=== PATIENT | male | born 1935 | race Asian ===

== ENCOUNTER 2016-08-10 12:34 | Inpatient (IN) | payer OTHER, MEDICARE ==
[2016-08-10] MEDS ORDERED: MIDAZOLAM HCL 2 MG/2 ML SINGLE DOSE VIAL ONE (15:24)
--- NOTE | 2016-08-10 15:56 | HP ---
Admitting History and Physical - Admission History of Present Illness: 81 year old ESRD on HD who has had declining mental status and problems on dialysis. His has requested that he be changed to peritoneal dialysis. No prior abdominal surgery. 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, Peripheral Neuropathy Cardiovascular: Yes: CAD Renal/: Yes: Hemodialysis, Other (on diaylsis ) Psych: Yes: Psychosis - Past Surgical History Past Surgical History: Yes: AV Fistula/Graft, CABG - Smoking History Smoking history: Former smoker Have you smoked in the past 12 months: No Aproximately how many cigarettes per day: 0 If you are a former smoker, when did you quit?: 30YRS - Alcohol/Substance Use Hx Alcohol Use: No - Social History History of Recent Travel: No Home Medications - Allergies Allergies/Adverse Reactions: Allergies Allergy/AdvReac Type Severity Reaction Status Date / Time No Known Drug Allergies Allergy Verified 07/30/16 13:42 - Home Medications Home Medications: Ambulatory Orders Acetaminophen [Tylenol] 650 mg PO DAILY PRN 03/07/16 Aspirin [ASA -] 81 mg PO DAILY 03/07/16 Insulin Lispro [Humalog] 26 unit SQ DAILY 03/07/16 Megestrol Acetate 40 mg PO DAILY 03/07/16 Polyethylene Glycol 3350 [Miralax 119 gm Btl -] 17 gm PO DAILY 03/07/16 Sevelamer Carbonate [Renvela -] 2,400 mg PO TID 03/07/16 Sodium Polystyrene Sulfon/Sorb [Kionex 15 gm/60 ml Suspension] 30 gm PO ASDIR Vit B Cmplx 3/FA/Vit C/Biotin [[place]issa-Kimani Rx Tablet] 1 each PO DAILY 03/07/16 Ipratropium/Albuterol Sulfate [Combivent Respimat Inhal [place]] 4 gm IH QID PRN 07/20/16 Mirtazapine [Remeron -] 7.5 mg PO HS 07/20/16 Atorvastatin Ca [Lipitor] 40 mg PO HS tablet 07/22/16 Insulin (Levemir) [Levemir Vial] 15 units SQ DAILY@0800 ml 07/22/16 Isosorbide Mononitrate [Imdur -] 30 mg PO HS tab.sr.24h 07/22/16 Levetiracetam [Keppra -] 250 mg PO BID tablet 07/22/16 Losartan Potassium [Cozaar -] 50 mg PO DAILY tablet 07/22/16 Nebivolol [Bystolic -] 5 mg PO BID tab 07/22/16 Insulin Pump/Infus. Set/Meter [Accu-Chek Combo System] 1 each MC DAILY 08/09/16 Physical Examination Vital Signs: Vital Signs Temperature 97.8 F 08/10/16 14:41 Pulse Rate 67 08/10/16 14:41 Respiratory Rate 16 08/10/16 14:41 Blood Pressure 167/88 08/10/16 14:41 O2 Sat by Pulse Oximetry (%) 98 08/10/16 14:41 Constitutional: Yes: Thin Cardiovascular: Yes: Regular Rate and Rhythm Respiratory: Yes: Regular Gastrointestinal: Yes: Soft Labs: CBC, BMP 08/10/16 15:00 Problem List - Problems (1) ESRD (end stage renal disease) on dialysis Assessment/Plan: Plan open placement of PD catheter to avoid need for general anesthesia. Code(s): N18.6 - END STAGE RENAL DISEASE Z99.2 - DEPENDENCE ON RENAL DIALYSIS
[2016-08-10] MEDS ORDERED: ePHEDrine SULFATE 50 MG/1 ML AMPULE ONE (16:03)
[2016-08-10] MEDS ORDERED: LIDOCAINE HCL 1%, 10 MG/ML (20ML VIAL) IJ ONE (16:40)
[2016-08-10] MEDS ORDERED: ACETAMINOPHEN 325 MG TABLET (FP) PO PRN ×2 (16:45→16:55)
[2016-08-10] MEDS ORDERED: PATIENT'S OWN MEDICATION (NON-FORMULARY) (Ipratropium/Albuterol Sulfate [Combivent Respima IH PRN (16:45)
--- NOTE | 2016-08-10 16:45 | OP ---
Operative Note - Note: Operative Date: 08/10/16 Pre-Operative Diagnosis: ESRD Operation: Open placement of peritoneal dialysis catheter Implants: Straight Tenckhoff catheter Post-Operative Diagnosis: Same as Pre-op Surgeon: Hu Tapia Leadership Program Intern: Bell Belle Anesthesiologist/[employer] TE[employer]ER: Ciara Persaud Anesthesia: Local (I liter fluid ran in 3 minutes, 600 cc out), Fractional
[2016-08-10] MEDS ORDERED: OXYCODONE/APAP 5/325MG COMBO TABLET PO PRN (16:48)
[2016-08-10] MEDS ORDERED: oxyCODONE HCL 5 MG TABLET PO PRN (16:55)
[2016-08-10] MEDS ORDERED: SODIUM CHLORIDE 0.45% 1,000 ML IV SCH (17:00)
--- NOTE | 2016-08-10 19:51 | RAPID ---
Physical Examination Vital Signs: Vital Signs Temperature 98.0 F 08/10/16 17:32 Pulse Rate 60 08/10/16 17:32 Respiratory Rate 16 08/10/16 17:32 Blood Pressure 160/87 08/10/16 17:32 O2 Sat by Pulse Oximetry (%) 100 08/10/16 17:15 Findings/Remarks: The patient is a 81 yo M, with PMH of HTN, hypercholesterolemia, ESRD (on HD Mon ,Wed,Mon), renal insufficiency, CAD, IDDM, hypoxia ( on home O2) and seizure disorder, who became unresponsive 2.5 hr after beginning of his HD session. His BP at that time was 115 /67 and was 155 systolic 10 min earlier. Blood glucose was 152, pulses were 2+. He was placed in trendelenberg and regained consciousness withing 1 minute and became responsive. He has experienced LOC during almost every HD session over the past 2 mo even though minimal amount of fluid have been removed per session. As per , he also has been less responsive and more lethargic between sessions over the past 2 mo. Constitutional: Yes: Thin Eyes: Yes: Conjunctiva Clear, PERRL HENT: Yes: Atraumatic, Normocephalic Neck: Yes: Supple Cardiovascular: Yes: Regular Rate and Rhythm, S1, S2 Respiratory: Yes: CTA Bilaterally Gastrointestinal: Yes: Normal Bowel Sounds, Soft Renal/: Yes: Oliguria Peripheral Pulses: Left Radial: 2+, Right Radial: 2+, Left Femoral: 2+, Right Femoral: 2+ Neurological: Yes: Unresponsive Labs: CBC, BMP 08/10/16 15:00 Rapid Response - Rapid Response Assessment: Patient unresponsive, breathing, robust pulses, RRR, CTA b/l lungs. Glucose 152 , pressure 115/67, repeat pressure 153/84. Loss of consciousness associated with elecrolyte shift during HD in setting of worsening renal failure -numerous prior episodes over past 2 mo -placed in trendelenberg, HD stopped, reagained consciousness within 1 min back to baseline -CBC, CMP, Mag, phos -ekg: unchanged from prior -cxr -vitals q2h Outcome: patient regained consciousness within 1 in, afebrile and hemodynamically stable Recommendations/Interventions: -CBC, CMP, Mag, phos -ekg: unchanged from prior -cxr -vitals q2h Critical Care Total Critical Care Time (in minutes): 20
[2016-08-10 20:50] LABS: MCH 32.2 pg (25.7-33.7); MCHC 32.4 g/dl (32.0-35.9); MEAN CELL VOLUME 99.3 fl (80-96); MEAN PLT VOLUME 9.5 fl (7.5-11.1); PLATELET COUNT 148 K/MM3 (134-434); RDW 13.8 % (11.9-15.9); WHITE BLOOD COUNT 7.5 K/mm3 (4.0-10.0)
[2016-08-10 21:24] LABS: ALBUMIN 3.3 g/dl (3.4-5.0); MAGNESIUM 2.1 mg/dL (1.8-2.4); PHOSPHOROUS 4.7 mg/dL (2.5-4.9)
[2016-08-10 21:26] LABS: BILIRUBIN,TOTAL 0.4 mg/dL (0.2-1.0); CREATININE 6.3 mg/dL (0.7-1.3); TOT PROT 6.8 g/dl (6.4-8.2)
[2016-08-10] MEDS: SEVELAMER CARBONATE 800 MG TAB (FP) PO SCH (21:41)
[2016-08-10] MEDS: levETIRAcetam 250 MG TABLET (FP) PO SCH (21:42)
[2016-08-10] MEDS: LOSARTAN POTASSIUM 50 MG TABLET (FP) PO SCH (21:44)
[2016-08-10] MEDS ORDERED: MIRTAZAPINE 15 MG TABLET (FP) PO SCH (22:00)
[2016-08-10] MEDS ORDERED: ATORVASTATIN CA 40 MG TABLET (FP) PO SCH (22:00)
[2016-08-10] MEDS ORDERED: ISOSORBIDE MONONITRATE 30 MG TAB.SR.24H (FP) PO SCH (22:00)
[2016-08-10] MEDS: NEBIVOLOL 5 MG TABLET (FP) PO SCH (23:10)
[2016-08-11] MEDS: SEVELAMER CARBONATE 800 MG TAB (FP) PO SCH ×2 (06:36→13:20)
[2016-08-11] MEDS ORDERED: INSULIN (NOVOLOG) ASPART 100 UNITS/ML 10ML VIAL SQ SCH (07:00)
[2016-08-11] MEDS ORDERED: INSULIN DETEMIR 100 UNITS/ML MDV SQ SCH (08:00)
[2016-08-11] MEDS ORDERED: ASPIRIN 81 MG CHEWABLE TABLETS PO SCH (10:00)
[2016-08-11] MEDS ORDERED: LOSARTAN POTASSIUM 50 MG TABLET (FP) PO SCH (10:00)
[2016-08-11] MEDS ORDERED: PATIENT'S OWN MEDICATION (NON-FORMULARY) (Insulin Pump/Infus. Set/Meter [Accu-Chek Combo S MC SCH (10:00)
[2016-08-11] MEDS ORDERED: POLYETHYLENE GLYCOL 3350 119 GM BTL PO SCH (10:00)
[2016-08-11] MEDS ORDERED: MEGESTROL ACETATE 40 MG TABLET PO SCH (10:00)
[2016-08-11] MEDS ORDERED: PATIENT'S OWN MEDICATION (NON-FORMULARY) (Vit B Cmplx 3/Fa/Vit C/Biotin [Rena-Vite Rx Tabl PO SCH (10:00)
[2016-08-11] MEDS: levETIRAcetam 250 MG TABLET (FP) PO SCH (10:02)
[2016-08-11] MEDS: LOSARTAN POTASSIUM 50 MG TABLET (FP) PO SCH (10:02)
[2016-08-11] MEDS: NEBIVOLOL 5 MG TABLET (FP) PO SCH (10:02)
--- NOTE | 2016-08-11 10:18 | PN ---
Progress Note (short form) - Note Progress Note: Patient seen and examined. Baseline dementia, minimal communication. Discussed patient with nurse. Patient had rapid response called last night when he became unresponsive during HD. Patient lost consciousness for less than one minute. He has had several attacks like this during HD for several months. The patient is doing well now and is tolerating his diet. Last Vital Signs Temp Pulse Resp BP Pulse Ox 98.8 F 76 20 154/76 96 08/11/16 14:02 08/11/16 14:02 08/11/16 08:50 08/11/16 14:02 08/11/16 09:00 CBC, BMP 08/10/16 20:00 08/10/16 20:00 Exam: Gen: NAD, minimal communication, resting comfortably Abd: Soft, minimally tender with palp, dressings clean, dry, intact Problem List - Problems (1) ESRD (end stage renal disease) on dialysis Assessment/Plan: POD#1 s/p open placement of peritoneal dialysis catheter Patient to be discharged home today with and aid To continue HD until PD catheter to be used for PD To follow up with Dr. Tapia Code(s): N18.6 - END STAGE RENAL DISEASE Z99.2 - DEPENDENCE ON RENAL DIALYSIS
--- NOTE | 2016-08-11 11:23 | PN ---
Progress Note (short form) - Note Progress Note: Anesthesia POD#1 S/P PD catheter insertion under MAC VSS,no N/V,no pain issues. No complications to anesthesia seen Magdalena Lyman.
--- NOTE | 2016-08-11 13:29 | CONSULT ---
Consult Consult Specialty:: Nephrology Referred by:: Dr. Tapia - History of Present Illness Chief Complaint: Patient with ESRD admitted for PD catheter placement. Had been getting hemodynamically unstable on hemodialysis. 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 Cardio/Vascular: Yes: CAD Renal/: Yes: Renal Failure, Hemodialysis, Other (on diaylsis ) Psych: Yes: Psychosis - Past Surgical History Past Surgical History: Yes: AV Fistula/Graft, CABG - Alcohol/Substance Use Hx Alcohol Use: No - Smoking History Smoking history: Former smoker Have you smoked in the past 12 months: No Aproximately how many cigarettes per day: 0 If you are a former smoker, when did you quit?: 30YRS - Social History Usual Living Arrangement: With Spouse History of Recent Travel: No Home Medications - Allergies Allergies/Adverse Reactions: Allergies Allergy/AdvReac Type Severity Reaction Status Date / Time No Known Drug Allergies Allergy Verified 07/30/16 13:42 - Home Medications Home Medications: Ambulatory Orders Acetaminophen [Tylenol] 650 mg PO DAILY PRN 03/07/16 Aspirin [ASA -] 81 mg PO DAILY 03/07/16 Insulin Lispro [Humalog] 26 unit SQ DAILY 03/07/16 Megestrol Acetate 40 mg PO DAILY 03/07/16 Polyethylene Glycol 3350 [Miralax 119 gm Btl -] 17 gm PO DAILY 03/07/16 Sevelamer Carbonate [Renvela -] 2,400 mg PO TID 03/07/16 Sodium Polystyrene Sulfon/Sorb [Kionex 15 gm/60 ml Suspension] 30 gm PO ASDIR Vit B Cmplx 3/FA/Vit C/Biotin [Rissa-Kimani Rx Tablet] 1 each PO DAILY 03/07/16 Ipratropium/Albuterol Sulfate [Combivent Respimat Inhal [place]] 4 gm IH QID PRN 07/20/16 Mirtazapine [Remeron -] 7.5 mg PO HS 07/20/16 Atorvastatin Ca [Lipitor] 40 mg PO HS tablet 07/22/16 Insulin (Levemir) [Levemir Vial] 15 units SQ DAILY@0800 ml 07/22/16 Isosorbide Mononitrate [Imdur -] 30 mg PO HS tab.sr.24h 07/22/16 Levetiracetam [Keppra -] 250 mg PO BID tablet 07/22/16 Losartan Potassium [Cozaar -] 50 mg PO DAILY tablet 07/22/16 Nebivolol [Bystolic -] 5 mg PO BID tab 07/22/16 Insulin Pump/Infus. Set/Meter [Accu-Chek Combo System] 1 each MC DAILY 08/09/16 Oxycodone HCl/Acetaminophen [Percocet 5-325 mg Tablet] 1 tab PO Q4H PRN #20 tablet MDD 6 08/10/16 Physical Exam Vital Signs: Vital Signs Temperature 98.9 F 08/11/16 08:50 Pulse Rate 75 08/11/16 08:50 Respiratory Rate 20 08/11/16 08:50 Blood Pressure 145/66 08/11/16 08:50 O2 Sat by Pulse Oximetry (%) 96 08/11/16 09:00 Labs: CBC, BMP 08/10/16 20:00 08/10/16 20:00 Problem List - Problems (1) Acute diastolic congestive heart failure Code(s): I50.31 - ACUTE DIASTOLIC (CONGESTIVE) HEART FAILURE (2) Altered mental status Code(s): R41.82 - ALTERED MENTAL STATUS, UNSPECIFIED Qualifiers: Altered mental status type: transient alteration of awareness Qualified Code(s): R40.4 - Transient alteration of awareness (3) Anemia Code(s): D64.9 - ANEMIA, UNSPECIFIED Qualifiers: Other causes of anemia: chronic disease, kidney (4) Coronary artery disease Code(s): I25.10 - ATHSCL HEART DISEASE OF [place] CORONARY ARTERY W/O ANG PCTRS Qualifiers: Coronary Disease-Associated Artery/Lesion type: [place] artery [place] vs. transplanted heart: [place] heart Associated angina: without angina Qualified Code(s): I25.10 - Atherosclerotic heart disease of [place] coronary artery without angina pectoris (5) Dementia Code(s): F03.90 - UNSPECIFIED DEMENTIA WITHOUT BEHAVIORAL DISTURBANCE Qualifiers: Dementia type: Alzheimer's disease Alzheimer's disease onset: unspecified onset Dementia behavioral disturbance: without behavioral disturbance Qualified Code(s): G30.9 - Alzheimer's disease, unspecified; F02.80 - Dementia in other diseases classified elsewhere without behavioral disturbance (6) ESRD (end stage renal disease) on dialysis Code(s): N18.6 - END STAGE RENAL DISEASE Z99.2 - DEPENDENCE ON RENAL DIALYSIS (7) Hypertension Code(s): I10 - ESSENTIAL (PRIMARY) HYPERTENSION Qualifiers: Hypertension type: essential hypertension Qualified Code(s): I10 - Essential (primary) hypertension (8) Labile hypertension Code(s): I10 - ESSENTIAL (PRIMARY) HYPERTENSION Assessment/Plan Patient had placement of PD Catheter yesterday. Had HD after the same. Developed an episode of Acute Hypotension and unresponsiveness during HD. Very transient. Patient will return to [facility] for continued HD until the PD catheter can be used to start PD. Discussed in detail with the patient's . Thank you. Debbie Snyder MD
[2016-08-11 14:04] VITALS: BP 154/76; PULSE 76; TEMP 98.8
--- NOTE | 2016-08-14 11:27 | EKG ---
Test Reason : Blood Pressure : / mmHG Vent. Rate : 065 BPM Atrial Rate : 065 BPM P-R Int : 180 ms QRS Dur : 086 ms QT Int : 458 ms P-R-T Axes : 097 -77 103 degrees QTc Int : 476 ms POOR DATA QUALITY, INTERPRETATION MAY BE ADVERSELY AFFECTED NORMAL SINUS RHYTHM LEFT AXIS DEVIATION INFERIOR INFARCT , AGE UNDETERMINED ABNORMAL ECG WHEN COMPARED WITH ECG OF 30-JUL-2016 13:47, ST NOW DEPRESSED IN INFERIOR LEADS NON-SPECIFIC CHANGE IN ST SEGMENT IN ANTERIOR LEADS NONSPECIFIC T WAVE ABNORMALITY NOW EVIDENT IN INFERIOR LEADS T WAVE INVERSION LESS EVIDENT IN LATERAL LEADS Confirmed by LIBBY WELLS, AQUILES ([id number]) on 08/14/2016 11:26:59 AM Referred By: Hu Tapia Confirmed By:AQUILES SOUZA MD
--- NOTE | 2016-08-15 10:21 | OP ---
DATE OF OPERATION: 08/10/2016 SURGEON: Hu Mariscal MD PLANT BREEDER SCIENTIST: LANE Belle PROCEDURE: Open placement of peritoneal dialysis catheter. PREOPERATIVE DIAGNOSIS: Renal failure. POSTOPERATIVE DIAGNOSIS: Renal failure. ANESTHESIA: Fractional. ANESTHESIOLOGIST: EMILIO Quintero OPERATIVE PROCEDURE: Following routine patient identification, intravenous sedation was established. The abdomen was present with ChloraPrep. Then 1% Xylocaine was infiltrated in the skin to the left of the umbilicus. Subcutaneous tissues were divided with cautery down to the muscle fascia. The muscle fascia was incised transversely and the underlying muscle fibers . The posterior sheath was elevated and a pursestring suture of 2-0 Vicryl placed but not tied. The posterior sheath and peritoneum were then opened in the center of the pursestring, and a straight double cuff Tenckhoff catheter advanced into the pelvis. The cuff was positioned between the anterior and the posterior sheaths. The pursestring suture was tied secured. The muscle fascia was then closed over the cuff using interrupted sutures of 2-0 Vicryl. The end of the catheter was then attached to a curved metal tunneler, and after administering Xylocaine in the skin, the tunneler was passed in the subcutaneous plane to exit on the right abdominal wall inferior to the level of the umbilicus on the lateral aspect. The outer cuff was positioned in the subcutaneous tissues. Care was taken not to twist or kink the catheter. The lure lock end was applied and then the catheter was attached to a liter bag of saline, which was run to the peritoneal cavity in under 3 minutes. The catheter was then allowed to drain leaving several hundred mLs of fluid within the peritoneal cavity, and it was capped. The abdominal wound was closed with interrupted suture of 3-0 Vicryl in subcutaneous tissues and running subcuticular suture of 4-0 Biosyn on the skin. Dermabond glue was applied. The catheter exit site was dressed with a Biopatch and occlusive dressing, and a large ABD pad was placed over the catheter and secured with tape. The patient was then taken to the recovery room in stable condition. HU MARISCAL M.D. [id number]
== END 2016-08-11 16:30 | disposition home or self-care (01) | DRG 981 ==
LOC: JASUSAT 12:34 → JSAMEDAYSX 15:53 → J6S 19:25 → FM/S 19:26 → JSAMEDAYSX 19:38 → J6S 21:14
PROVIDERS: ADMIT Surgery; ATTEND Surgery
PROC: 5A1D00Z (ICD-10-PCS; 2016-08-10)
PROC: 0WHG03Z Insertion of Infusion Device into Peritoneal Cavity, Open Approach (ICD-10-PCS; principal; 2016-08-10 14:30)
DX: I13.2 Hypertensive heart and chronic kidney disease with heart failure and with stage 5 chronic kidney disease, or end stage renal disease (principal); N18.6 End stage renal disease; I50.31 Acute diastolic (congestive) heart failure; G40.802 Other epilepsy, not intractable, without status epilepticus; I25.10 Atherosclerotic heart disease of native coronary artery without angina pectoris; E78.00 Pure hypercholesterolemia, unspecified; E11.9 Type 2 diabetes mellitus without complications; F03.90 Unspecified dementia, unspecified severity, without behavioral disturbance, psychotic disturbance, mood disturbance, and anxiety; G62.89 Other specified polyneuropathies; Z79.4 Long term (current) use of insulin; Z99.2 Dependence on renal dialysis
CPT/HCPCS: 36415; 71010-TC; 80053; 82947; 83735; 84100; 84132; 84484; 85027; 93005; 93010; 94760; J8999

== ENCOUNTER 2016-09-07 09:50 | Inpatient (IN) | payer OTHER, MEDICARE ==
[2016-09-07 10:13] VITALS: BMI 20.3
--- NOTE | 2016-09-07 11:03 | PDOC ---
History of Present Illness - General History Source: Family Exam Limitations: No Limitations - History of Present Illness Initial Comments: 09/07/16 11:22 81y M hx of IDDM, HL, CHF, CAD s/p CABG, ESRD (on hemodylysis, but being transitioned to peritoneal dialysis because he is not tolerating hemodylasis) being sent for problem with his periotoneal cather. Per the the pts peritoneal cath was placed early august and they have started to use it recently, but has not been functioning correctly (not draining diasylate approrpriate) pt had an xray that showed it was not in the corret place and was told to come to the ED by dr. Debbie Horan (renal). Pts last hemodyalsis was for 2 hrs on Monday, and previous sat. Family notes the pt is more somnolent the past few days. No fevers, cough, vomiting. history limited from patient due to clinical condition. <Raghu Arboleda - Last Filed: 09/07/16 13:56> <Ximena Mascorro - Last Filed: 09/07/16 15:14> - General Chief Complaint: Dialysis Shunt Problem Stated Complaint: PCP SENT (DIALYSIS) Time Seen by Provider: 09/07/16 10:54 Past History - Past Medical History Anemia: Yes Asthma: No Cancer: No Cardiac Disorders: Yes (CORONARY BYPASS 2003) CVA: No COPD: No CHF: Yes Dementia: No Diabetes: Yes (IDDM,insulin pump) Dialysis: Yes GI Disorders: No Disorders: Yes ([facility]) HTN: Yes Hypercholesterolemia: Yes Liver Disease: No Seizures: No Thyroid Disease: No - Surgical History Abdominal Surgery: No Appendectomy: No Cardiac Surgery: Yes (CORONARY BYPASS 2003) Cholecystectomy: No Lung Surgery: No Neurologic Surgery: No Orthopedic Surgery: No - Immunization History Immunization Up to Date: No - Psycho/Social/Smoking Cessation Hx Anxiety: No Suicidal Ideation: No Smoking Status: Yes Smoking History: Never smoked Have you smoked in the past 12 months: No Number of Cigarettes Smoked Daily: 0 If you are a former smoker, when did you quit?: 30YRS Hx Alcohol Use: No Drug/Substance Use Hx: No Substance Use Type: None Hx Substance Use Treatment: No <Raghu Arboleda - Last Filed: 09/07/16 13:56> <Ximena Mascorro - Last Filed: 09/07/16 15:14> - Past Medical History Allergies/Adverse Reactions: Allergies Allergy/AdvReac Type Severity Reaction Status Date / Time No Known Drug Allergies Allergy Verified 09/07/16 10:13 Home Medications: Ambulatory Orders Acetaminophen [Tylenol] 650 mg PO DAILY PRN 03/07/16 Aspirin [ASA -] 81 mg PO DAILY 03/07/16 Insulin Lispro [Humalog] 26 unit SQ DAILY 03/07/16 Megestrol Acetate 40 mg PO DAILY 03/07/16 Polyethylene Glycol 3350 [Miralax 119 gm Btl -] 17 gm PO DAILY 03/07/16 Sevelamer Carbonate [Renvela -] 2,400 mg PO TID 03/07/16 Sodium Polystyrene Sulfon/Sorb [Kionex 15 gm/60 ml Suspension] 30 gm PO ASDIR Vit B Cmplx 3/FA/Vit C/Biotin [Rissa-Kimani Rx Tablet] 1 each PO DAILY 03/07/16 Ipratropium/Albuterol Sulfate [Combivent Respimat Inhal [place]] 4 gm IH QID PRN 07/20/16 Mirtazapine [Remeron -] 7.5 mg PO HS 07/20/16 Atorvastatin Ca [Lipitor] 40 mg PO HS tablet 07/22/16 Insulin (Levemir) [Levemir Vial] 15 units SQ DAILY@0800 ml 07/22/16 Isosorbide Mononitrate [Imdur -] 30 mg PO HS tab.sr.24h 07/22/16 Levetiracetam [Keppra -] 250 mg PO BID tablet 07/22/16 Losartan Potassium [Cozaar -] 50 mg PO DAILY tablet 07/22/16 Nebivolol [Bystolic -] 5 mg PO BID tab 07/22/16 Insulin Pump/Infus. Set/Meter [Accu-Chek Combo System] 1 each MC DAILY 08/09/16 Oxycodone HCl/Acetaminophen [Percocet 5-325 mg Tablet] 1 tab PO Q4H PRN #20 tablet MDD 6 08/10/16 Review of Systems - Review of Systems Able to Perform ROS?: No Comments:: 09/07/16 11:26 unable to obtain <Raghu Arboleda - Last Filed: 09/07/16 13:56> *Physical Exam - Vital Signs Last Vital Signs Temp Pulse Resp BP Pulse Ox 92 H 20 147/66 98 09/07/16 10:06 09/07/16 10:06 09/07/16 10:06 09/07/16 10:06 - Physical Exam Comments: 09/07/16 11:26 GENERAL: The patient is somnolent, but will open his eyes with stimulation. HEAD: Normocephalic, atraumatic. EYES: sclera anicteric, conjunctiva clear. ENT: dry mucous membranes. LUNGS: rales at the bases b/l HEART: Regular rate and rhythm, normal S1 and S2 without murmur, rub or gallop. ABDOMEN: cather in abdomen, no erythema, slightly distended abodmen, no rebound/ guarding EXTREMITIES: no edema. NEUROLOGICAL: No facial assymetry, Normal speech, PSYCH: Normal mood, normal affect. SKIN: Warm, Dry, normal turgor, <Raghu Arboleda - Last Filed: 09/07/16 13:56> - Vital Signs Last Vital Signs Temp Pulse Resp BP Pulse Ox 92 H 20 147/66 98 09/07/16 10:06 09/07/16 10:06 09/07/16 10:06 09/07/16 10:06 <Ximena Mascorro - Last Filed: 09/07/16 15:14> Heart Score/ECG Review - ECG Impressions Comment:: 09/07/16 11:29 Twelve-lead EKG was performed and reviewed by me. There is normal sinus rhythm with a rate of 64 left axis devaitaion q waves in inferior leads poor baseline <Raghu Arboleda - Last Filed: 09/07/16 13:56> ED Treatment Course - LABORATORY CBC & Chemistry Diagram: 09/07/16 11:33 09/07/16 11:33 <Raghu Arboleda - Last Filed: 09/07/16 13:56> - LABORATORY CBC & Chemistry Diagram: 09/07/16 11:33 09/07/16 11:33 - ADDITIONAL ORDERS Additional order review: Laboratory Results 02/01/17 02/01/17 02/01/17 11:33 11:33 11:33 INR 1.01 VBG pH 7.21 L* POC VBG pCO2 65.3 H* D POC VBG pO2 29.5 L D Sodium 143 Potassium 4.7 Chloride 101 Carbon Dioxide 26 Anion Gap 16 BUN 101 H Creatinine 9.9 H* Creat Clearance w eGFR 5.11 Random Glucose 284 H Calcium 8.1 L Phosphorus 7.6 H D Magnesium 2.7 H D Total Bilirubin 0.3 AST 17 ALT 23 Alkaline Phosphatase 99 Ammonia Total Protein 7.3 Albumin 3.2 L Blood Type Antibody Screen 09/07/16 09/07/16 11:33 11:20 INR VBG pH POC VBG pCO2 POC VBG pO2 Sodium Potassium Chloride Carbon Dioxide Anion Gap BUN Creatinine Creat Clearance w eGFR Random Glucose Calcium Phosphorus Magnesium Total Bilirubin AST ALT Alkaline Phosphatase Ammonia 21.30 Total Protein Albumin Blood Type A POSITIVE Antibody Screen Negative 09/07/16 11:33 RBC 3.07 L MCV 102.3 H MCHC 32.6 RDW 13.7 MPV 10.1 Neutrophils % 70.0 Lymphocytes % 14.3 Monocytes % 9.0 Eosinophils % 5.7 H Basophils % 1.0 - RADIOLOGY Radiograph Interpretation: 09/07/16 13:44 EXAM: CXR INTERPRETED BY: Dr. Vasquez REVIEWED BY: Dr. Arboleda IMPRESSION: Cardiomegaly. No evidence of vascular congestion, pulmonary infiltrates, pneumothorax. No large pleural effusion is seen. EXAM: Head CT INTERPRETED BY: Dr. Sparks REVIEWED BY: Dr. Arboleda IMPRESSION: No changes in acute intracranial pathology or significant change. <Ximena Mascorro - Last Filed: 09/07/16 15:14> Medical Decision Making - Medical Decision Making 09/07/16 11:27 81y M hxo fmultiple medical problems presents with problem wit hperitoneal shunt pt noted somnolent - suspect secondary to uremia +rales at bsaes - suspect due to fluid retention will obtain blood work to ck lytes pt placed on athletic monitor, ekg to screen for hyperkalemia will discuss with dr. hough (surgery), Dr. bennett (renal), Cipriano (PMD) 09/07/16 13:47 09/07/16 13:47 cxr negative labs reviewed BUN/cr elevated, however K wnl vbg c/w with respiratory acidosis - likely due to respiraotry depression secondary to uremia will d/w renal for possible diaylsis due to his mental status case d/w dr. Lees and dr. reese will admit to tele awaiting call back from renal Case discussed in detail with admitting physician including history, physical exam and ancillary studies. Admitting physician has assumed care for the patient, will follow all pending diagnostics and will complete the evaluation and treatment. CRITICAL CARE DOCUMENTATION: I spent ~35 minutes of Critical Care time, excluding separately billable procedures, involving high complexity decision making to assess, manipulate and support vital system function(s) to treat single or multiple vital organ system failure and/or to prevent further life threatening deterioration of the patient' s condition. <Raghu Arboleda - Last Filed: 09/07/16 13:56> - Medical Decision Making 09/07/16 14:13 First call placed to Dr. Cota at 13:[address] Lees at 13:44. First call placed to Dr. Steele at 13:36. Awaiting call back. Case discussed with Dr. Pederson at 14:10. <Ximena Mascorro - Last Filed: 09/07/16 15:14> *DC/Admit/Observation/Transfer - Discharge Dispostion Admit: Yes <Raghu Arboleda - Last Filed: 09/07/16 13:56> - Attestations Scribe Attestion: 09/07/16 13:46 Documentation prepared by Ximena Mascorro, acting as director biomedical engineering for Raghu Arboleda MD. <Ximena Mascorro - Last Filed: 09/07/16 15:14> Diagnosis at time of Disposition: ESRD (end stage renal disease), Uremia Peritoneal dialysis catheter dysfunction Qualifiers: Encounter type: initial encounter Qualified Code(s): T85.611A - Breakdown ( mechanical) of intraperitoneal dialysis catheter, initial encounter - Discharge Dispostion Condition at time of disposition: Guarded - Referrals
[2016-09-07 11:43] LABS: VENOUS PH 7.21 (7.31-7.41)
[2016-09-07 11:44] LABS: VENOUS BLOOD GAS HCO3 25.2 meq/L (22-29)
[2016-09-07 12:11] LABS: EOSINOPHIL 5.7 % (0-4.5); MCH 33.3 pg (25.7-33.7); MCHC 32.6 g/dl (32.0-35.9); MEAN CELL VOLUME 102.3 fl (80-96); MEAN PLT VOLUME 10.1 fl (7.5-11.1); PLATELET COUNT 125 K/MM3 (134-434); RDW 13.7 % (11.9-15.9); WHITE BLOOD COUNT 8.1 K/mm3 (4.0-10.0)
[2016-09-07 12:25] LABS: ALBUMIN 3.2 g/dl (3.4-5.0); CALCIUM 8.1 mg/dL (8.5-10.1); MAGNESIUM 2.7 mg/dL (1.8-2.4); PHOSPHOROUS 7.6 mg/dL (2.5-4.9)
[2016-09-07 12:26] LABS: INR 1.01 (0.82-1.09); PROTHROMBIN TIME (PATIENT) 11.1 SEC (9.98-11.88)
[2016-09-07 12:32] LABS: BILIRUBIN,TOTAL 0.3 mg/dL (0.2-1.0); TOT PROT 7.3 g/dl (6.4-8.2)
[2016-09-07 12:38] LABS: CREATININE 9.9 mg/dL (0.7-1.3)
[2016-09-07] MEDS ORDERED: ALBUTEROL SO4 2.5/IPRATROPIUM 0.5 INH SOL 3 ML VIAL.NEB. NEB ONE (13:48)
[2016-09-07] MEDS ORDERED: SUCCINYLCHOLINE CHLORIDE 200 MG/10 ML VIAL ONE ×2 (16:21→21:50)
[2016-09-07] MEDS ORDERED: ETOMIDATE 20 MG/10 ML AMPUL IVPUSH ONE ×2 (16:21→21:50)
[2016-09-07] MEDS ORDERED: ROCURONIUM BROMIDE 50 MG/5 ML VIAL ONE (16:21)
[2016-09-07] MEDS ORDERED: LIDOCAINE HCL/PF 2% SDV 5ML VIAL ONE (16:23)
[2016-09-07] MEDS ORDERED: DEXAMETHASONE SOD PHOSPHATE 4 MG/1 ML VIAL ONE (16:25)
[2016-09-07 16:29] LABS: ARTERIAL BLD GAS O2 SATURATION 92.2 % (90-98.9); ARTERIAL BLOOD GAS BASE EXCESS -3.2 meq/l (-2-2); ARTERIAL BLOOD GAS PO2 84.5 mmHg (70-100)
[2016-09-07 16:31] LABS: ARTERIAL BLOOD GAS pH 7.23 (7.35-7.45); LPM/O2% 1LPM; PT. ON O2? YES; TYPE OF O2 NASAL
[2016-09-07] MEDS ORDERED: ceFAZolin SODIUM 1 GM VIAL ONE (17:17)
[2016-09-07] MEDS ORDERED: ceFAZolin SODIUM 1 GM VIAL IVPB ONE ×2 (17:20)
[2016-09-07] MEDS ORDERED: ePHEDrine SULFATE 50 MG/1 ML AMPULE ONE (17:20)
[2016-09-07] MEDS ORDERED: BUPIVACAINE HCL/PF 0.5% (5MG/ML) 10 ML VIAL IJ ONE (17:35)
[2016-09-07] MEDS ORDERED: NEOSTIGMINE METHYLSULFATE 0.5 MG/ML - 10 ML MDV ONE (18:08)
--- NOTE | 2016-09-07 18:22 | CONSULT ---
Consult - History of Present Illness History of Present Illness: 81 year old male with ESRD who had PD catheter placed last month. the catheter is not draining well and xray showed the tip not in the pelvis. 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 Cardio/Vascular: Yes: CAD Renal/: Yes: Renal Failure, Hemodialysis, Other (on diaylsis ) Psych: Yes: Psychosis - Past Surgical History Past Surgical History: Yes: AV Fistula/Graft, CABG - Alcohol/Substance Use Hx Alcohol Use: No - Smoking History Smoking history: Never smoked Have you smoked in the past 12 months: No Aproximately how many cigarettes per day: 0 If you are a former smoker, when did you quit?: 30YRS - Social History Usual Living Arrangement: With Spouse History of Recent Travel: No Home Medications - Allergies Allergies/Adverse Reactions: Allergies Allergy/AdvReac Type Severity Reaction Status Date / Time No Known Drug Allergies Allergy Verified 09/07/16 10:13 - Home Medications Home Medications: Ambulatory Orders Acetaminophen [Tylenol] 650 mg PO DAILY PRN 03/07/16 Aspirin [ASA -] 81 mg PO DAILY 03/07/16 Insulin Lispro [Humalog] 0 unit SQ ASDIR PRN 03/07/16 Megestrol Acetate 40 mg PO DAILY 03/07/16 Polyethylene Glycol 3350 [Miralax 119 gm Btl -] 17 gm PO DAILY 03/07/16 Sevelamer Carbonate [Renvela -] 2,400 mg PO TID 03/07/16 Sodium Polystyrene Sulfon/Sorb [Kionex 15 gm/60 ml Suspension] 30 gm PO ASDIR Vit B Cmplx 3/FA/Vit C/Biotin [Rissa-Kimani Rx Tablet] 1 each PO DAILY 03/07/16 Ipratropium/Albuterol Sulfate [Combivent Respimat Inhal Captiva] 4 gm IH QID PRN 07/20/16 Mirtazapine [Remeron -] 7.5 mg PO HS 07/20/16 Atorvastatin Ca [Lipitor] 40 mg PO HS tablet 07/22/16 Isosorbide Mononitrate [Imdur -] 30 mg PO HS tab.sr.24h 07/22/16 Levetiracetam [Keppra -] 250 mg PO BID tablet 07/22/16 Losartan Potassium [Cozaar -] 50 mg PO DAILY tablet 07/22/16 Amlodipine Besylate 5 mg PO DAILY 09/07/16 Insulin Glargine,Hum.rec.anlog [Lantus (nf)] 26 units SQ ACBK 09/07/16 Nebivolol [Bystolic -] 5 mg PO BID 09/07/16 Physical Exam Vital Signs: Vital Signs Temperature Pulse Rate 61 09/07/16 14:26 Respiratory Rate 34 H 09/07/16 14:26 Blood Pressure 121/58 09/07/16 14:26 O2 Sat by Pulse Oximetry (%) 100 09/07/16 14:26 Constitutional: Yes: Other (Unresponsive) Gastrointestinal: Yes: Soft, Other (Catheter exit site clean and dry.) Problem List - Problems (1) ESRD (end stage renal disease) Assessment/Plan: Will replace catheter with laparoscopy to ensure proper placement. Code(s): N18.6 - END STAGE RENAL DISEASE (2) Peritoneal dialysis catheter dysfunction Code(s): T85.611A - BREAKDOWN OF INTRAPERITONEAL DIALYSIS CATHETER, INIT Qualifiers: Encounter type: initial encounter Qualified Code(s): T85.611A - Breakdown (mechanical) of intraperitoneal dialysis catheter, initial encounter
--- NOTE | 2016-09-07 18:25 | OP ---
Operative Note - Note: Operative Date: 09/07/16 Pre-Operative Diagnosis: Malfunction peritoneal dialysis catheter Operation: Laparoscopy, lysis of adhesion. Placement peritoneal dialysis catheter. Removal peritoneal dialysis catheter. Findings: PD catheter with tip in pelvis. Adhesion of small bowel loop at catheter site. Implants: [place] neck PD catheter Post-Operative Diagnosis: Same as Pre-op Surgeon: Hu Tapia Anesthesiologist/HOG HANDLER: Kris Rubio Anesthesia: General
[2016-09-07] MEDS ORDERED: PATIENT'S OWN MEDICATION (NON-FORMULARY) (Ipratropium/Albuterol Sulfate [Combivent Respima IH PRN (18:26)
[2016-09-07] MEDS ORDERED: HYDROmorphone HCL CARPU-JECT 1 MG/1 ML DISP.SYRIN IVPB PRN (18:28)
[2016-09-07] MEDS ORDERED: ONDANSETRON 4 MG/2 ML VIAL IVPUSH PRN (18:47)
--- NOTE | 2016-09-07 22:57 | EKG ---
Test Reason : Blood Pressure : / mmHG Vent. Rate : 064 BPM Atrial Rate : 064 BPM P-R Int : 186 ms QRS Dur : 108 ms QT Int : 388 ms P-R-T Axes : 039 -78 216 degrees QTc Int : 400 ms POOR DATA QUALITY, INTERPRETATION MAY BE ADVERSELY AFFECTED NORMAL SINUS RHYTHM WITH SINUS ARRHYTHMIA LEFT AXIS DEVIATION INCOMPLETE RIGHT BUNDLE BRANCH BLOCK MINIMAL VOLTAGE CRITERIA FOR LVH, MAY BE NORMAL VARIANT ANTEROSEPTAL INFARCT , AGE UNDETERMINED MARKED ST ABNORMALITY, POSSIBLE INFERIOR SUBENDOCARDIAL INJURY ABNORMAL ECG WHEN COMPARED WITH ECG OF 10-AUG-2016 19:57, INCOMPLETE RIGHT BUNDLE BRANCH BLOCK IS NOW PRESENT ANTEROSEPTAL INFARCT IS NOW PRESENT Confirmed by AQUILES SOUZA MD ([id number]) on 09/07/2016 10:57:39 PM Referred By: Confirmed By:AQUILES SOUZA MD
[2016-09-08] MEDS: ISOSORBIDE MONONITRATE 30 MG TAB.SR.24H (FP) PO SCH ×2 (00:55→22:41)
[2016-09-08] MEDS: NEBIVOLOL 5 MG TABLET (FP) PO SCH ×3 (00:55→22:41)
[2016-09-08] MEDS: ATORVASTATIN CA 40 MG TABLET (FP) PO SCH ×2 (00:56→22:41)
[2016-09-08] MEDS: MIRTAZAPINE 15 MG TABLET (FP) PO SCH ×2 (00:56→22:42)
[2016-09-08] MEDS: levETIRAcetam 250 MG TABLET (FP) PO SCH ×3 (00:56→22:41)
[2016-09-08] MEDS: INSULIN DETEMIR 100 UNITS/ML MDV SQ SCH ×2 (06:41→09:10)
[2016-09-08] MEDS: SEVELAMER CARBONATE 800 MG TAB (FP) PO SCH ×2 (08:27→12:05)
[2016-09-08] MEDS ORDERED: PT OWN MED DRAWER 7, Y5N ONE (09:04)
[2016-09-08] MEDS: ASPIRIN 81 MG CHEWABLE TABLETS PO SCH (09:09)
[2016-09-08] MEDS: LOSARTAN POTASSIUM 50 MG TABLET (FP) PO SCH ×2 (09:09→09:20)
[2016-09-08] MEDS: amLODIPine BESYLATE 5 MG TABLET (FP) PO SCH (09:09)
--- NOTE | 2016-09-08 10:27 | CONSULT ---
Consult - text type - Consultation Consultation Note: Renal Consult for ESRD on HD/PD This is a 81 year old Gentleman with PMhx of ESRD on HD -> PD (started 2 weeks ago), Hypertension, IDDM, Dementia (progressive over the past 2 years) who presented from home with malfunctioning PD catheter (tip was not in the pelvis) and admitted for replacement of the catheter. Pt s/p laproscopic PD catheter replacement yesterday with lysis of adhesions. Pt noted to be lethargic in the ED and abg showed CO2 retention. CT head negative. BUN > 100. Pt s/p dialysis yesterday however continues to be lethargic. at the bedside. Pt not able to provide history. PMhx: as per HPI Family hx: NC Social Hx: former smoker ROS: Limited because of clinical status Home Meds: Medication Instructions Recorded Acetaminophen [Tylenol] 650 mg PO DAILY PRN 03/07/16 Aspirin [ASA -] 81 mg PO DAILY 03/07/16 Insulin Lispro [Humalog] 0 unit SQ ASDIR PRN 03/07/16 Megestrol Acetate 40 mg PO DAILY 03/07/16 Polyethylene Glycol 3350 [Miralax 17 gm PO DAILY 03/07/16 119 gm Btl -] Sevelamer Carbonate [Renvela -] 2,400 mg PO TID 03/07/16 Sodium Polystyrene Sulfon/Sorb 30 gm PO ASDIR 03/07/16 [Kionex 15 gm/60 ml Suspension] Vit B Cmplx 3/FA/Vit C/Biotin 1 each PO DAILY 03/07/16 [Rissa-Kimani Rx Tablet] Ipratropium/Albuterol Sulfate 4 gm IH QID PRN 07/20/16 [Combivent Respimat Inhal Bruni] Mirtazapine [Remeron -] 7.5 mg PO HS 07/20/16 Atorvastatin Ca [Lipitor] 40 mg PO HS tablet 07/22/16 Isosorbide Mononitrate [Imdur -] 30 mg PO HS tab.sr.24h 07/22/16 Levetiracetam [Keppra -] 250 mg PO BID tablet 07/22/16 Losartan Potassium [Cozaar -] 50 mg PO DAILY tablet 07/22/16 Amlodipine Besylate 5 mg PO DAILY 09/07/16 Insulin Glargine,Hum.rec.anlog 26 units SQ ACBK 09/07/16 [Lantus (nf)] Nebivolol [Bystolic -] 5 mg PO BID 09/07/16 Vital Signs Temperature 97.0 F L 09/08/16 05:13 Pulse Rate 70 09/08/16 05:13 Respiratory Rate 20 09/08/16 05:13 Blood Pressure 110/52 09/08/16 05:13 O2 Sat by Pulse Oximetry (%) 100 09/07/16 20:00 Intake & Output 09/05/16 09/06/16 09/07/16 09/08/16 23:59 23:59 23:59 23:59 Intake Total 450 250 Balance 450 250 Weight 130 lb 1.164 oz Gen: lethargic on Venti mask HEENT: NC/AT, No JVD CVS: RRR, No M/R Lungs: CTA Abd: soft NT/ND. Abd dressing pad in place. Ext: No edema, clubbing or cyanosis Neuro: Very lethagic. not following commands CBC, BMP 09/07/16 11:33 09/07/16 11:33 Current Medications Acetaminophen (Tylenol -) 650 mg PO DAILY PRN PRN Reason: PAIN Albumin Human (Albumin Human 25% -) 12.5 gm IVPB Q30M [facility] Amlodipine Besylate (Norvasc -) 5 mg PO DAILY [facility] Last Admin: 09/08/16 09:09 Dose: 5 mg Aspirin (Asa -) 81 mg PO DAILY [facility] Last Admin: 09/08/16 09:09 Dose: 81 mg Atorvastatin Calcium (Lipitor -) 40 mg PO HS [facility] Last Admin: 09/08/16 00:56 Dose: Not Given Fentanyl (Sublimaze Injection -) 25 mcg IVPUSH [id number] PRN PRN Reason: PAIN Stop: 09/10/16 18:48 Insulin Aspart (Novolog Vial Sliding Scale -) 1 vial SQ ACHS [facility] PRN Reason: Protocol Insulin Detemir (Levemir Vial) 26 units SQ ACBK [facility] Last Admin: 09/08/16 09:10 Dose: 26 units Isosorbide Mononitrate (Imdur -) 30 mg PO HS [facility] Last Admin: 09/08/16 00:55 Dose: Not Given Levetiracetam (Keppra -) 250 mg PO BID [facility] Last Admin: 09/08/16 09:09 Dose: 250 mg Losartan Potassium (Cozaar -) 50 mg PO DAILY [facility] Last Admin: 09/08/16 09:20 Dose: Not Given Megestrol Acetate (Megace -) 40 mg PO DAILY [facility] Mirtazapine (Remeron -) 7.5 mg PO HS [facility] Last Admin: 09/08/16 00:56 Dose: Not Given Nebivolol (Bystolic -) 5 mg PO BID [facility] Last Admin: 09/08/16 09:09 Dose: 5 mg Non-Formulary Medication (Ipratropium/Albuterol Sulfate [Combivent Respimat Inhal Bruni]) 4 gm IH QID PRN PRN Reason: SHORT OF BREATH/WHEEZING Non-Formulary Medication (Sodium Polystyrene Sulfon/Sorb [Kionex 15 Gm/60 Ml Suspension]) 30 gm PO ASDIR [facility] Non-Formulary Medication (Vit B Cmplx 3/Fa/Vit C/Biotin [Rissa-Kimani Rx Tablet]) 1 each PO DAILY [facility] Polyethylene Glycol (Miralax (For Daily Use) -) 17 gm PO DAILY [facility] Sevelamer Carbonate (Renvela -) 2,400 mg PO TIDCM [facility] Last Admin: 09/08/16 08:27 Dose: 2,400 mg A/P 81 year old Gentleman with PMhx of ESRD on HD -> PD (started 2 weeks ago), Hypertension, IDDM, Dementia (progressive over the past 2 years) who presented from home with malfunctioning PD catheter (tip was not in the pelvis) and admitted for replacement of the catheter. #Lethargy secondary to CO2 retention vs uremic encephalopathy Check ABG today Will arrange for additional Hd today Check Labs prior to dialysis Check Blood cultures x 2 CT head yesterday no acute pathology Pt is DNR but not DNI #PD catheter dysfunction s/p PD catheter exchange yesterday by Sx Continue local wound care as per Sx #ESRD Will plan for additional dialysis today to management of possible uremic encephopathy #Hypertension BP at goal currently continue current meds #Anemia Hgb stable repeat cbc today Thank you Will follow Tayo Pederson DO
[2016-09-08] MEDS: INSULIN SLIDING SCALE (NOVOLOG) 1 VIAL SQ SCH ×3 (11:57→22:42)
[2016-09-08] MEDS: MEGESTROL ACETATE 40 MG TABLET PO SCH (12:02)
[2016-09-08] MEDS: POLYETHYLENE GLYCOL 3350 119 GM BTL PO SCH (12:02)
--- NOTE | 2016-09-08 12:31 | PN ---
Progress Note (short form) - Note Progress Note: Anesthesia Post op Pt seen and examined S:Awake, does not follow commands. No change . tremor O: Vital Signs Temperature 97.0 F L 09/08/16 05:13 Pulse Rate 70 09/08/16 05:13 Respiratory Rate 20 09/08/16 05:13 Blood Pressure 110/52 09/08/16 05:13 O2 Sat by Pulse Oximetry (%) 100 09/07/16 20:00 CBC, BMP 09/07/16 11:33 09/07/16 11:33 A/P: Current Active Problems ESRD (end stage renal disease) (Acute) Peritoneal dialysis catheter dysfunction (Acute) Uremia (Acute) s/p revision of peritoneal dialysis No apparent Anesthesia related complications noted. Continue current care Angel Almeida MD
--- NOTE | 2016-09-08 12:38 | OP ---
DATE OF OPERATION: 09/07/2016 PROCEDURE: 1. Diagnostic laparoscopy with lysis of adhesion. 2. Placement of peritoneal dialysis catheter with laparoscopic guidance. 3. Removal of peritoneal dialysis catheter. PREOPERATIVE DIAGNOSIS: Malfunctioning peritoneal dialysis catheter. POSTOPERATIVE DIAGNOSIS: 1. Malfunctioning peritoneal dialysis catheter. 2. Small bowel adhesion. ANESTHESIA: GENERAL: ANESTHESIOLOGIST: Kris Rubio MD OPERATIVE FINDINGS: The previously-placed peritoneal dialysis catheter was extending into the pelvis, and the tip was buried under loops of small intestine. There was an adhesion of a small bowel loop to the catheter entrance site on the anterior abdominal wall. There were no other abnormal adhesions seen. OPERATIVE PROCEDURE: Following routine patient identification, general anesthesia was induced. The abdomen was prepped with ChloraPrep. The PD catheter was attached to the CO2 insufflator, and carbon dioxide was instilled into the peritoneal cavity to 15 mmHg pressure. A 5-mm Visiport was placed through a small incision in the upper midline, and abdominal exploration carried out with a 5-mm angled laparoscope. A second 5-mm port was placed in the left lower quadrant under direct visualization. A clamp was used to elevate the peritoneal dialysis catheter out of the pelvis. Due to malfunction of the catheter, decision was made to replace it. The adhesion of small bowel loop to the anterior abdominal wall was divided with scissors, Endoshears and electrocautery to control any bleeding from the abdominal wall. The bowel was carefully inspected, and there was no evidence of injury. A small incision was made to the left of the umbilicus, and an 8-mm bladeless trocar was advanced until the tip was seen through the parietal peritoneum. The trocar was then advanced toward the pelvis and entered the peritoneal cavity inferior to the umbilicus. A [place]-neck double-cuff dialysis catheter was then advanced over a metal jatin into the pelvis where it was deployed and positioned on top of the bowel loops. The inner cuff was placed just deep to the abdominal wall fascia, and the trocar was removed. The other end of the catheter was attached to a curved tunneler, which was passed in the subcutaneous plane along the right abdominal wall, positioning the outer cuff in the subcutaneous tissues. The catheter was attached to tubing, and 1 liter of saline instilled into the peritoneal cavity in less than 4 minutes. The gas had been removed from the abdomen. The bag was dropped to the floor and the fluid drained out. Pneumoperitoneum was re-established, and repeat laparoscopy confirmed good placement of the catheter. The CO2 was evacuated. The old catheter was then removed by a small incision over the outer cuff. The cuff was freed, and then the inner cuff was freed. A purse-string suture of 2-0 Vicryl was placed in the peroneum, and the catheter removed and the suture placed to control any fluid leakage. The wounds were then irrigated and closed with interrupted suture of 3-0 Vicryl on the subcutaneous tissues and subcuticular sutures of 4-0 Biosyn on the skin. Dermabond glue was applied to all the wounds. The catheter tubing was clamped, and it was covered with an ABD pad, which was taped securely to the skin, and the patient was then extubated and taken in stable condition to the recovery room. ELA MARISCAL M.D. TABITHA/[id number]
[2016-09-08 13:58] LABS: MCH 32.9 pg (25.7-33.7); MCHC 32.2 g/dl (32.0-35.9); MEAN CELL VOLUME 101.9 fl (80-96); MEAN PLT VOLUME 9.9 fl (7.5-11.1); PLATELET COUNT 105 K/MM3 (134-434); RDW 13.4 % (11.9-15.9); WHITE BLOOD COUNT 6.1 K/mm3 (4.0-10.0)
[2016-09-08 14:28] LABS: BILIRUBIN,TOTAL 0.2 mg/dL (0.2-1.0); TOT PROT 6.3 g/dl (6.4-8.2)
[2016-09-08] MEDS: ALBUMIN HUMAN 25% 50 ML VIAL IVPB SCH (15:21)
[2016-09-08] MEDS ORDERED: INSULIN (NOVOLOG) ASPART 100 UNITS/ML 10ML VIAL ONE (17:18)
[2016-09-08] MEDS: SEVELAMER CARBONATE 2.4 GM POWDER PACKET PO SCH (17:22)
[2016-09-08 21:00] LABS: ARTERIAL BLD GAS O2 SATURATION 85.3 % (90-98.9); ARTERIAL BLOOD GAS BASE EXCESS 4.1 meq/l (-2-2); ARTERIAL BLOOD GAS HCO3 30.9 meq/L (22-26)
[2016-09-08 21:01] LABS: ARTERIAL BLOOD GAS pH 7.29 (7.35-7.45)
[2016-09-08 21:02] LABS: ARTERIAL BLOOD GAS PO2 55.5 mmHg (70-100)
[2016-09-08 21:03] LABS: LPM/O2% 2.5 LPM; PT. ON O2? YES; TYPE OF O2 NASAL
[2016-09-09] MEDS ORDERED: DEXTROSE 50%-WATER 50 ML DISP.SYRIN ONE (05:43)
[2016-09-09] MEDS: INSULIN SLIDING SCALE (NOVOLOG) 1 VIAL SQ SCH ×4 (06:24→21:52)
[2016-09-09] MEDS: INSULIN DETEMIR 100 UNITS/ML MDV SQ SCH (06:25)
[2016-09-09] MEDS ORDERED: PT OWN MED DRAWER 7, Y5N ONE ×2 (08:12→09:11)
--- NOTE | 2016-09-09 08:23 | PATH ---
Surgical Pathology Report Patient Name: KIERA ALMAZAN Med. Rec. #: [id number] /Age/Gender: 1935 (Age: 81) / M Account: [id number] Location: 4 W TELEMETRY U Taken: 09/07/2016 Received: 09/08/2016 Reported: 09/09/2016 Physicians: Hu Tapia M.D. Specimen(s) Received REMOVED PERITONEAL DIALYSIS CATHETER Clinical History ESRF Final Diagnosis INSURANCE JOB TITLES, PERITONEAL, REMOVAL: INSURANCE JOB TITLES CONSISTENT WITH PERITONEAL DIALYSIS CATHETER (GROSS ONLY). Electronically Signed Denton Ibanez M.D. Gross Description Received fresh, labeled "removed peritoneal dialysis catheter," are 2 portions of clear tubing measuring 16.5 and 27.0 cm in length. The shorter portion displays a 2.5 cm in greatest dimension redd metallic portion of hardware at one end. No soft tissue is present. No sections are submitted, gross only. 09/08/201609/08/2016
[2016-09-09] MEDS: SEVELAMER CARBONATE 2.4 GM POWDER PACKET PO SCH ×3 (08:32→17:43)
--- NOTE | 2016-09-09 09:27 | PN ---
Progress Note, Physician Chief Complaint: More awake History of Present Illness: End stage renal disease on PD and HD Admitted for peritonial catheter insertion - Current Medication List Current Medications: Active Medications Acetaminophen (Tylenol -) 650 mg PO DAILY PRN PRN Reason: PAIN Amlodipine Besylate (Norvasc -) 5 mg PO DAILY [facility] Last Admin: 09/08/16 09:09 Dose: 5 mg Aspirin (Asa -) 81 mg PO DAILY [facility] Last Admin: 09/08/16 09:09 Dose: 81 mg Atorvastatin Calcium (Lipitor -) 40 mg PO HS [facility] Last Admin: 09/08/16 22:41 Dose: 40 mg Fentanyl (Sublimaze Injection -) 25 mcg IVPUSH [id number] PRN PRN Reason: PAIN Stop: 09/10/16 18:48 Insulin Aspart (Novolog Vial Sliding Scale -) 1 vial SQ ACHS [facility] PRN Reason: Protocol Last Admin: 09/09/16 06:24 Dose: Not Given Insulin Detemir (Levemir Vial) 26 units SQ ACBK [facility] Last Admin: 09/09/16 06:25 Dose: Not Given Isosorbide Mononitrate (Imdur -) 30 mg PO [facility] Last Admin: 09/08/16 22:41 Dose: 30 mg Levetiracetam (Keppra -) 250 mg PO BID [facility] Last Admin: 09/08/16 22:41 Dose: 250 mg Losartan Potassium (Cozaar -) 50 mg PO DAILY [facility] Last Admin: 09/08/16 09:20 Dose: Not Given Megestrol Acetate (Megace -) 40 mg PO DAILY [facility] Last Admin: 09/08/16 12:02 Dose: 40 mg Mirtazapine (Remeron -) 7.5 mg PO HS [facility] Last Admin: 09/08/16 22:42 Dose: Not Given Nebivolol (Bystolic -) 5 mg PO BID [facility] Last Admin: 09/08/16 22:41 Dose: 5 mg Non-Formulary Medication (Ipratropium/Albuterol Sulfate [Combivent Respimat Inhal Daphne]) 4 gm IH QID PRN PRN Reason: SHORT OF BREATH/WHEEZING Non-Formulary Medication (Sodium Polystyrene Sulfon/Sorb [Kionex 15 Gm/60 Ml Suspension]) 30 gm PO ASDIR [facility] Non-Formulary Medication (Vit B Cmplx 3/Fa/Vit C/Biotin [Rissa-Kimani Rx Tablet]) 1 each PO DAILY [facility] Polyethylene Glycol (Miralax (For Daily Use) -) 17 gm PO DAILY [facility] Last Admin: 09/08/16 12:02 Dose: 17 gm Sevelamer Carbonate (Renvela Powder Packet -) 2.4 gm PO TIDCM [facility] Last Admin: 09/09/16 08:32 Dose: 2.4 gm - Objective Vital Signs: Vital Signs Temperature 98.8 F 09/09/16 02:00 Pulse Rate 59 L 09/09/16 06:00 Respiratory Rate 20 09/09/16 06:00 Blood Pressure 121/54 09/09/16 06:00 O2 Sat by Pulse Oximetry (%) 99 09/08/16 21:00 Constitutional: Yes: Cachectic Eyes: Yes: WNL HENT: Yes: WNL Neck: Yes: Supple Cardiovascular: Yes: Regular Rate and Rhythm Respiratory: Yes: On Nasal O2 Gastrointestinal: Yes: WNL ...Rectal Exam: Yes: Deferred Breast(s): Yes: WNL Musculoskeletal: Yes: Muscle Weakness Edema: No Neurological: Yes: Lethargy Labs: CBC, BMP 09/08/16 12:00 09/08/16 12:00 INR, PTT INR 1.01 (0.82-1.09) 09/07/16 11:33 Assessment/Plan ABG yesterday showed acidosis metabolic and respiratory Plan to do ABG on room air
--- NOTE | 2016-09-09 09:30 | DS ---
Physical Examination Vital Signs: Vital Signs Temperature 98.8 F 09/09/16 02:00 Pulse Rate 59 L 09/09/16 06:00 Respiratory Rate 20 09/09/16 06:00 Blood Pressure 121/54 09/09/16 06:00 O2 Sat by Pulse Oximetry (%) 99 09/08/16 21:00 Constitutional: Yes: Cachectic Eyes: Yes: WNL HENT: Yes: [place] Neck: Yes: WNL Respiratory: Yes: On Nasal O2 Gastrointestinal: Yes: WNL ...Rectal Exam: Yes: Deferred Renal/: Yes: Anuria Labs: CBC, BMP 09/08/16 12:00 09/08/16 12:00 Discharge Summary Reason For Visit: LETHARGY,ESRF ON DIALYSIS Current Active Problems ESRD (end stage renal disease) (Acute) Peritoneal dialysis catheter dysfunction (Acute) Uremia (Acute) Condition: Improved - Instructions Referrals: Jeremy Cota MD [Primary Care Provider] - Disposition: HOME - Home Medications Comprehensive Discharge Medication List: Ambulatory Orders Acetaminophen [Tylenol] 650 mg PO DAILY PRN 03/07/16 Aspirin [ASA -] 81 mg PO DAILY 03/07/16 Insulin Lispro [Humalog] 0 unit SQ ASDIR PRN 03/07/16 Megestrol Acetate 40 mg PO DAILY 03/07/16 Polyethylene Glycol 3350 [Miralax 119 gm Btl -] 17 gm PO DAILY 03/07/16 Sevelamer Carbonate [Renvela -] 2,400 mg PO TID 03/07/16 Sodium Polystyrene Sulfon/Sorb [Kionex 15 gm/60 ml Suspension] 30 gm PO ASDIR Vit B Cmplx 3/FA/Vit C/Biotin [Rissa-Kimani Rx Tablet] 1 each PO DAILY 03/07/16 Ipratropium/Albuterol Sulfate [Combivent Respimat Inhal Dewar] 4 gm IH QID PRN 07/20/16 Mirtazapine [Remeron -] 7.5 mg PO HS 07/20/16 Atorvastatin Ca [Lipitor] 40 mg PO HS tablet 07/22/16 Isosorbide Mononitrate [Imdur -] 30 mg PO HS tab.sr.24h 07/22/16 Levetiracetam [Keppra -] 250 mg PO BID tablet 07/22/16 Losartan Potassium [Cozaar -] 50 mg PO DAILY tablet 07/22/16 Amlodipine Besylate 5 mg PO DAILY 09/07/16 Insulin Glargine,Hum.rec.anlog [Lantus (nf)] 26 units SQ ACBK 09/07/16 Nebivolol [Bystolic -] 5 mg PO BID 09/07/16
[2016-09-09] MEDS: levETIRAcetam 250 MG TABLET (FP) PO SCH ×2 (10:08→21:45)
[2016-09-09] MEDS: MEGESTROL ACETATE 40 MG TABLET PO SCH (10:08)
[2016-09-09] MEDS: ASPIRIN 81 MG CHEWABLE TABLETS PO SCH (10:09)
[2016-09-09] MEDS: NEBIVOLOL 5 MG TABLET (FP) PO SCH ×2 (10:09→21:44)
[2016-09-09] MEDS: POLYETHYLENE GLYCOL 3350 119 GM BTL PO SCH (10:09)
[2016-09-09] MEDS: amLODIPine BESYLATE 5 MG TABLET (FP) PO SCH (10:09)
[2016-09-09] MEDS: LOSARTAN POTASSIUM 50 MG TABLET (FP) PO SCH (10:09)
[2016-09-09 10:53] LABS: ARTERIAL BLD GAS O2 SATURATION 81.9 % (90-98.9); ARTERIAL BLOOD GAS BASE EXCESS 1.3 meq/l (-2-2); ARTERIAL BLOOD GAS HCO3 27.8 meq/L (22-26); ARTERIAL BLOOD GAS PO2 51.1 mmHg (70-100)
[2016-09-09 10:55] LABS: ALLENS TEST POSITIVE; ART PUNCT SITE RIGHT BRACHIAL; LPM/O2% 21%; PT. ON O2? NO
[2016-09-09 10:57] LABS: TYPE OF O2 ROOM AIR
--- NOTE | 2016-09-09 11:27 | PN ---
Progress Note (short form) - Note Progress Note: Renal Follow up for ESRD on HD Pt seen and examined at the bedside more awake and alert today at the bedside appears to be at his baseline Mental status ABG continues to show Resp acidosis and mild CO2 retention Vital Signs Temperature 98.8 F 09/09/16 02:00 Pulse Rate 59 L 09/09/16 06:00 Respiratory Rate 20 09/09/16 06:00 Blood Pressure 121/54 09/09/16 06:00 O2 Sat by Pulse Oximetry (%) 99 09/08/16 21:00 Intake & Output 09/06/16 09/07/16 09/08/16 09/09/16 23:59 23:59 23:59 23:59 Intake Total 450 950 Output Total 0 Balance 450 950 0 Weight 130 lb 1.164 oz 141 lb Gen: awake and alert HEENT: NC/AT, No JVD CVS: RRR, No M/R Lungs: CTA Abd: soft NT/ND. Abd dressing pad in place. Ext: No edema, clubbing or cyanosis CBC, BMP 09/08/16 12:00 09/08/16 12:00 Current Medications Acetaminophen (Tylenol -) 650 mg PO DAILY PRN PRN Reason: PAIN Amlodipine Besylate (Norvasc -) 5 mg PO DAILY [facility] Last Admin: 09/09/16 10:09 Dose: 5 mg Aspirin (Asa -) 81 mg PO DAILY [facility] Last Admin: 09/09/16 10:09 Dose: 81 mg Atorvastatin Calcium (Lipitor -) 40 mg PO HS [facility] Last Admin: 09/08/16 22:41 Dose: 40 mg Fentanyl (Sublimaze Injection -) 25 mcg IVPUSH [id number] PRN PRN Reason: PAIN Stop: 09/10/16 18:48 Insulin Aspart (Novolog Vial Sliding Scale -) 1 vial SQ ACHS [facility] PRN Reason: Protocol Last Admin: 09/09/16 06:24 Dose: Not Given Insulin Detemir (Levemir Vial) 26 units SQ ACBK [facility] Last Admin: 09/09/16 06:25 Dose: Not Given Isosorbide Mononitrate (Imdur -) 30 mg PO HS [facility] Last Admin: 09/08/16 22:41 Dose: 30 mg Levetiracetam (Keppra -) 250 mg PO BID [facility] Last Admin: 09/09/16 10:08 Dose: 250 mg Losartan Potassium (Cozaar -) 50 mg PO DAILY [facility] Last Admin: 09/09/16 10:09 Dose: Not Given Megestrol Acetate (Megace -) 40 mg PO DAILY [facility] Last Admin: 09/09/16 10:08 Dose: 40 mg Mirtazapine (Remeron -) 7.5 mg PO HS [facility] Last Admin: 09/08/16 22:42 Dose: Not Given Multivit/Ca Carb/B Cmplx/FA/Prenat (Nephro-Kimani -) 1 tablet PO DAILY [facility] Nebivolol (Bystolic -) 5 mg PO BID [facility] Last Admin: 09/09/16 10:09 Dose: 5 mg Polyethylene Glycol (Miralax (For Daily Use) -) 17 gm PO DAILY [facility] Last Admin: 09/09/16 10:09 Dose: 17 gm Sevelamer Carbonate (Renvela Powder Packet -) 2.4 gm PO TIDCM [facility] Last Admin: 09/09/16 08:32 Dose: 2.4 gm A/P 81 year old Gentleman with PMhx of ESRD on HD -> PD (started 2 weeks ago), Hypertension, IDDM, Dementia (progressive over the past 2 years) who presented from home with malfunctioning PD catheter (tip was not in the pelvis) and admitted for replacement of the catheter. #Uremic Encephlopathy/AMS Mental status much improve ds/p 2 dialysis sessions ABG continues to show hypercarbia and hypoxia No acute indication for dialysis today #Hypercarbia/Hypxoia Pulmonary consult requested Pt uses O2 at home PRN Former smoker may need outpatient PFTs #PD catheter dysfunction s/p PD catheter exchange yesterday by Sx Continue local wound care as per Sx #ESRD no acute indication for dialysis today #Hypertension BP at goal currently continue current meds #Anemia Hgb stable repeat cbc today discharge planning pending Pulmonary Evaluation Tayo Pederson DO
--- NOTE | 2016-09-09 12:21 | PN ---
Progress Note (short form) - Note Progress Note: PULMONARY CONSULTATION DICTATED 09/09/16 IMP ACUTE HYPOXEMIC/HYPERCAPNEIC RESPIRATORY FAILURE ALTERED MENTAL STATUS ?TOXIC METABOLIC,MEDS ESRD ON HD CHF ASHD S/P CABG IDDM DEMENTIA PLAN BIPAP SUPPLEMENTAL O2 INHALED BRONCHODILATORS CHEST X-RAY HD PER RENAL MONITOR ABGS DR OBREGON Problem List - Problems (1) ESRD (end stage renal disease) Code(s): N18.6 - END STAGE RENAL DISEASE (2) Peritoneal dialysis catheter dysfunction Code(s): T85.611A - BREAKDOWN OF INTRAPERITONEAL DIALYSIS CATHETER, INIT Qualifiers: Encounter type: initial encounter Qualified Code(s): T85.611A - Breakdown (mechanical) of intraperitoneal dialysis catheter, initial encounter (3) Uremia Code(s): N19 - UNSPECIFIED KIDNEY FAILURE (4) Acute respiratory failure Code(s): J96.00 - ACUTE RESPIRATORY FAILURE, UNSP W HYPOXIA OR HYPERCAPNIA Qualifiers: Respiratory failure complication: hypoxia Qualified Code(s): J96.01 - Acute respiratory failure with hypoxia (5) Altered mental status Code(s): R41.82 - ALTERED MENTAL STATUS, UNSPECIFIED Qualifiers: Altered mental status type: transient alteration of awareness Qualified Code(s): R40.4 - Transient alteration of awareness (6) Anemia Code(s): D64.9 - ANEMIA, UNSPECIFIED Qualifiers: Other causes of anemia: chronic disease, kidney (7) Coronary artery disease Code(s): I25.10 - ATHSCL HEART DISEASE OF [place] CORONARY ARTERY W/O ANG PCTRS Qualifiers: Coronary Disease-Associated Artery/Lesion type: [place] artery [place] vs. 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
--- NOTE | 2016-09-09 13:08 | CONS ---
DATE OF CONSULTATION: 09/09/2016 REFERRING PHYSICIAN: Dr. Cr HISTORY: The patient is a 81-year-old Chinese male with past medical history of end-stage renal disease on hemodialysis currently started on peritoneal dialysis 2 weeks ago, hypertension, insulin-dependent diabetes mellitus, dementia apparently progressing over the past 2 years admitted to [facility] on September 07 secondary to malfunctioning TD catheter. The patient was admitted for replacement of catheter. The patient underwent laparoscopy and TD catheter placement the day prior to admission with lysis of adhesions. Apparently he was noticed to be lethargic in the emergency room at which time he was noted to have progressive hypercapnia with a PCO2 on venous blood gas of 65 and a pH of 7.2. He was admitted to telemetry for further monitoring. On admission, he was evaluated by Dr. Cr for renal consultation. He underwent dialysis x2. Apparently this morning he showed some slight improvement in his mental status, although arterial blood gas continues to show hypercapnia. Of note, in March 2016 he had a normal blood pH with a PCO2 of 45. The patient has a history of tobacco use. There is no apparent history of occupational exposure to chemical fumes. PAST MEDICAL HISTORY: Again, includes end-stage renal disease on dialysis, hypertension, insulin-dependent diabetes mellitus, dementia, ASHD status post CABG, congestive heart failure, hyperlipidemia. PAST SURGICAL HISTORY: Includes CABG in 2003. SOCIAL HISTORY: History of tobacco use. Apparently quit 30 years ago. No occupational exposures. CURRENT MEDICATIONS: Include Tylenol, Cozaar, Keppra, Remeron, Megace, Bystolic, MiraLAX, Norvasc, Lipitor, NovoLog, Levemir, Imdur, aspirin, Renvela, and Nephro-Kimani. REVIEW OF SYSTEMS: Unable to obtain. The patient is very lethargic. PHYSICAL EXAMINATION: General: The patient is a well-developed, well-nourished male lethargic. Vital Signs: He is currently afebrile. Heart rate 59, blood pressure 121/54, respiratory rate 20, O2 saturation 99% on 2 L. HEENT: Normocephalic and atraumatic. Neck: Supple. Heart: Regular S1, S2. Chest: Poor inspiratory effort. Crackles noted bilaterally. Abdomen: Soft. Bowel sounds positive. Extremities: No cyanosis or edema. LABORATORY DATA: Blood gas: PH 7.30, PCO2 of 59, PO2 of 51, bicarbonate 27, saturation 81. WBC 6.1, hemoglobin 8.6, hematocrit 26.5 with a platelet count of 105,000, INR 1.01. Chemistries: BUN 69, creatinine 7. Chest x-ray from admission reveals mild cardiomegaly but no infiltrates or effusions. IMPRESSION: 1. Altered mental status acute on chronic likely secondary to hypercapnia, possible toxic metabolic. 2. Acute on chronic hypoxemic respiratory failure, possibility mild congestive heart failure, possibly infectious. 3. End-stage renal disease on peritoneal dialysis. 4. Arteriosclerotic heart disease status post coronary artery bypass graft. 5. Insulin-dependent diabetes mellitus. PLAN: Start on BiPAP. Continue dialysis as per Renal. Monitor ABGs. Follow up chest x-ray. Monitor blood sugars. Follow closely with you. MANISHA OBREGON M.D. [id number]
[2016-09-09] MEDS: VITAMIN B COMP W-C 1 EA TABLET PO SCH (13:39)
[2016-09-09 15:29] LABS: ARTERIAL BLD GAS O2 SATURATION 97.7 % (90-98.9); ARTERIAL BLOOD GAS BASE EXCESS 1.8 meq/l (-2-2); ARTERIAL BLOOD GAS HCO3 27.6 meq/L (22-26); ARTERIAL BLOOD GAS pH 7.33 (7.35-7.45)
[2016-09-09 15:30] LABS: ALLENS TEST POSITIVE; ART PUNCT SITE RIGHT BRACHIAL; LPM/O2% 40%; MECH. VENT. BIPAP; PT. ON O2? YES; TYPE OF O2 BIPAP; VENT RATE 14; VT/PRESS 14
[2016-09-09] MEDS: ISOSORBIDE MONONITRATE 30 MG TAB.SR.24H (FP) PO SCH (21:44)
[2016-09-09] MEDS: ATORVASTATIN CA 40 MG TABLET (FP) PO SCH (21:45)
[2016-09-09] MEDS: MIRTAZAPINE 15 MG TABLET (FP) PO SCH (22:42)
[2016-09-10 00:06] LABS: HEP B SURFACE AB Reactive (.)
[2016-09-10] MEDS: INSULIN SLIDING SCALE (NOVOLOG) 1 VIAL SQ SCH ×4 (06:05→21:25)
[2016-09-10] MEDS: INSULIN DETEMIR 100 UNITS/ML MDV SQ SCH (06:05)
[2016-09-10 07:49] LABS: MCH 32.9 pg (25.7-33.7); MCHC 32.4 g/dl (32.0-35.9); MEAN CELL VOLUME 101.8 fl (80-96); MEAN PLT VOLUME 10.1 fl (7.5-11.1); PLATELET COUNT 89 K/MM3 (134-434); RDW 13.4 % (11.9-15.9); WHITE BLOOD COUNT 6.8 K/mm3 (4.0-10.0)
[2016-09-10] MEDS ORDERED: PT OWN MED DRAWER 7, Y5N ONE (08:48)
[2016-09-10] MEDS ORDERED: EPOETIN ALFA 20,000 UNIT/1 ML VIAL IVPUSH ONE (09:00)
[2016-09-10 09:08] LABS: CALCIUM 7.9 mg/dL (8.5-10.1); PHOSPHOROUS 6.9 mg/dL (2.5-4.9)
[2016-09-10 09:53] LABS: CREATININE 7.8 mg/dL (0.7-1.3)
[2016-09-10] MEDS: SEVELAMER CARBONATE 2.4 GM POWDER PACKET PO SCH ×3 (10:07→17:12)
[2016-09-10] MEDS ORDERED: MINERAL OIL ENEMA 133 ML ENEMA PR ONE (10:07)
--- NOTE | 2016-09-10 10:16 | PN ---
Progress Note (short form) - Note Progress Note: Renal Follow up for ESRD on HD Pt seen and examined during dialysis BP stable on dialysis, access with good flow UF goal is 2.2L hgb was 7.7, will transfuse 1 unit prbc report that he is lethargic again this am, not opening eyes ate breakfast Vital Signs Temperature 99.5 F 09/10/16 06:55 Pulse Rate 60 09/10/16 09:30 Respiratory Rate 18 09/10/16 09:30 Blood Pressure 148/61 09/10/16 09:30 O2 Sat by Pulse Oximetry (%) 99 09/10/16 03:10 Intake & Output 09/07/16 09/08/16 09/09/16 09/10/16 23:59 23:59 23:59 23:59 Intake Total 450 950 760 210 Output Total 0 Balance 450 950 760 210 Weight 130 lb 1.164 oz 141 lb 141 lb Gen: awake and alert HEENT: NC/AT, No JVD CVS: RRR, No M/R Lungs: CTA Abd: soft NT/ND. Abd dressing pad in place. Ext: No edema, clubbing or cyanosis CBC, BMP 09/10/16 07:00 09/10/16 07:00 Current Medications Acetaminophen (Tylenol -) 650 mg PO DAILY PRN PRN Reason: PAIN Albuterol/Ipratropium (Duoneb -) 1 amp NEB Q4H PRN PRN Reason: SHORTNESS OF BREATH Amlodipine Besylate (Norvasc -) 5 mg PO DAILY [facility] Last Admin: 09/09/16 10:09 Dose: 5 mg Aspirin (Asa -) 81 mg PO DAILY [facility] Last Admin: 09/09/16 10:09 Dose: 81 mg Atorvastatin Calcium (Lipitor -) 40 mg PO HS [facility] Last Admin: 09/09/16 21:45 Dose: 40 mg Fentanyl (Sublimaze Injection -) 25 mcg IVPUSH [id number] PRN PRN Reason: PAIN Stop: 09/10/16 18:48 Insulin Aspart (Novolog Vial Sliding Scale -) 1 vial SQ ACHS [facility] PRN Reason: Protocol Last Admin: 09/10/16 06:05 Dose: Not Given Insulin Detemir (Levemir Vial) 26 units SQ ACBK [facility] Last Admin: 09/10/16 06:05 Dose: Not Given Isosorbide Mononitrate (Imdur -) 30 mg PO HS [facility] Last Admin: 09/09/16 21:44 Dose: 30 mg Losartan Potassium (Cozaar -) 50 mg PO DAILY [facility] Last Admin: 09/09/16 10:09 Dose: Not Given Megestrol Acetate (Megace -) 40 mg PO DAILY [facility] Last Admin: 09/09/16 10:08 Dose: 40 mg Mineral Oil (Fleet Mineral Oil Rectal Enema -) 133 ml NM NOW ONE Stop: 09/10/16 10:08 Mirtazapine (Remeron -) 7.5 mg PO HS [facility] Last Admin: 09/09/16 22:42 Dose: Not Given Multivit/Ca Carb/B Cmplx/FA/Prenat (Nephro-Kimani -) 1 tablet PO DAILY [facility] Last Admin: 09/09/16 13:39 Dose: Not Given Nebivolol (Bystolic -) 5 mg PO BID [facility] Last Admin: 09/09/16 21:44 Dose: 5 mg Polyethylene Glycol (Miralax (For Daily Use) -) 17 gm PO DAILY [facility] Last Admin: 09/09/16 10:09 Dose: 17 gm Sevelamer Carbonate (Renvela Powder Packet -) 2.4 gm PO TIDCM [facility] Last Admin: 09/10/16 10:07 Dose: 2.4 gm A/P 81 year old Gentleman with PMhx of ESRD on HD -> PD (started 2 weeks ago), Hypertension, IDDM, Dementia (progressive over the past 2 years) who presented from home with malfunctioning PD catheter (tip was not in the pelvis) and admitted for replacement of the catheter. #Uremic Encephlopathy/AMS Mental status with improvement s/p dialysis 2 days in a row, todays appears more sedated Will hold Keppra and Remeron for now Consult Neurology Continue BIPAP #Hypercarbia/Hypxoia Continue BIPAP as per pulmonary Check ABG today #Acute Anemia ? Source of blood loss s/p Surgical procedure -> check Ct of the abd w/o contrast to r/o hematoma or fluid collection transfuse 1 unit prbc with dialysis Epogen 93532 units SC #PD catheter dysfunction s/p PD catheter exchanged #ESRD Tolerating dialysis well today Monitor MS after dialysis #Hypertension BP at goal currently continue current meds Tayo Pederson DO
[2016-09-10] MEDS: MEGESTROL ACETATE 40 MG TABLET PO SCH (11:36)
[2016-09-10] MEDS: amLODIPine BESYLATE 5 MG TABLET (FP) PO SCH (11:36)
[2016-09-10] MEDS: VITAMIN B COMP W-C 1 EA TABLET PO SCH (11:36)
[2016-09-10] MEDS: LOSARTAN POTASSIUM 50 MG TABLET (FP) PO SCH (11:36)
[2016-09-10] MEDS: ASPIRIN 81 MG CHEWABLE TABLETS PO SCH (11:36)
[2016-09-10] MEDS: NEBIVOLOL 5 MG TABLET (FP) PO SCH ×2 (11:37→21:16)
[2016-09-10] MEDS: levETIRAcetam 250 MG TABLET (FP) PO SCH (11:37)
[2016-09-10] MEDS: POLYETHYLENE GLYCOL 3350 119 GM BTL PO SCH (11:37)
--- NOTE | 2016-09-10 11:59 | PN ---
Progress Note (short form) - Note Progress Note: No acute events overnight. Lethargic. NAD. Intake & Output 09/07/16 09/08/16 09/09/16 09/10/16 23:59 23:59 23:59 23:59 Intake Total 450 950 760 210 Output Total 0 Balance 450 950 760 210 Weight 130 lb 1.164 oz 141 lb 141 lb Last Vital Signs Temp Pulse Resp BP Pulse Ox 99.5 F 60 18 148/61 99 09/10/16 06:55 09/10/16 09:30 09/10/16 09:30 09/10/16 09:30 09/10/16 03:10 Active Medications Acetaminophen (Tylenol -) 650 mg PO DAILY PRN PRN Reason: PAIN Albuterol/Ipratropium (Duoneb -) 1 amp NEB Q4H PRN PRN Reason: SHORTNESS OF BREATH Amlodipine Besylate (Norvasc -) 5 mg PO DAILY [facility] Last Admin: 09/10/16 11:36 Dose: 5 mg Aspirin (Asa -) 81 mg PO DAILY [facility] Last Admin: 09/10/16 11:36 Dose: 81 mg Atorvastatin Calcium (Lipitor -) 40 mg PO HS [facility] Last Admin: 09/09/16 21:45 Dose: 40 mg Fentanyl (Sublimaze Injection -) 25 mcg IVPUSH [id number] PRN PRN Reason: PAIN Stop: 09/10/16 18:48 Insulin Aspart (Novolog Vial Sliding Scale -) 1 vial SQ ACHS [facility] PRN Reason: Protocol Last Admin: 09/10/16 06:05 Dose: Not Given Insulin Detemir (Levemir Vial) 26 units SQ ACBK [facility] Last Admin: 09/10/16 06:05 Dose: Not Given Isosorbide Mononitrate (Imdur -) 30 mg PO HS [facility] Last Admin: 09/09/16 21:44 Dose: 30 mg Losartan Potassium (Cozaar -) 50 mg PO DAILY [facility] Last Admin: 09/10/16 11:36 Dose: 50 mg Megestrol Acetate (Megace -) 40 mg PO DAILY [facility] Last Admin: 09/10/16 11:36 Dose: 40 mg Multivit/Ca Carb/B Cmplx/FA/Prenat (Nephro-Kimani -) 1 tablet PO DAILY [facility] Last Admin: 02/04/17 11:36 Dose: 1 tablet Nebivolol (Bystolic -) 5 mg PO BID [facility] Last Admin: 09/10/16 11:37 Dose: 5 mg Polyethylene Glycol (Miralax (For Daily Use) -) 17 gm PO DAILY [facility] Last Admin: 09/10/16 11:37 Dose: 17 gm Sevelamer Carbonate (Renvela Powder Packet -) 2.4 gm PO TIDCM [facility] Last Admin: 09/10/16 10:07 Dose: 2.4 gm Constitutional: Yes: Lethargic, NAD Eyes: Yes: WNL HENT: Yes: (-) Pallor Neck: Yes: WNL Respiratory: Yes: clear, On Nasal O2 Gastrointestinal: Yes: WNL ...Rectal Exam: Yes: Deferred Renal/: Yes: Anuria Laboratory Results - last 24 hr 09/07/16 09/09/16 09/09/16 20:15 12:12 15:25 WBC RBC Hgb Hct MCV MCHC RDW Plt Count MPV Puncture Site Right brachial ABG pH 7.33 L ABG pCO2 at Pt Temp 54.5 H ABG pO2 at Pt Temp 113.0 H D ABG HCO3 27.6 H ABG O2 Sat (Measured) 97.7 ABG O2 Content 10.7 L ABG Base Excess 1.8 Gelacio Test Positive O2 Delivery Device Bipap Oxygen Flow Rate 40% Vent Mode S/t Vent Rate 14 Mechanical Rate Bipap PEEP 6.0 Pressure Support Vent 14 Sodium Potassium Chloride Carbon Dioxide Anion Gap BUN Creatinine POC Glucometer 95 Random Glucose Calcium Phosphorus Hep A IgM Ab Confirm Negative Hepatitis A Ab Total Positive H Hep Bs Antigen Negative Hep Bs Antibody Reactive Hep B Core Total Ab Positive H Blood Type Antibody Screen Crossmatch Spec Expiration Date 09/09/16 09/09/16 09/10/16 17:18 21:46 06:04 WBC RBC Hgb Hct MCV MCHC RDW Plt Count MPV Puncture Site ABG pH ABG pCO2 at Pt Temp ABG pO2 at Pt Temp ABG HCO3 ABG O2 Sat (Measured) ABG O2 Content ABG Base Excess Gelacio Test O2 Delivery Device Oxygen Flow Rate Vent Mode Vent Rate Mechanical Rate PEEP Pressure Support Vent Sodium Potassium Chloride Carbon Dioxide Anion Gap BUN Creatinine POC Glucometer 117 257 105 Random Glucose Calcium Phosphorus Hep A IgM Ab Confirm Hepatitis A Ab Total Hep Bs Antigen Hep Bs Antibody Hep B Core Total Ab Blood Type Antibody Screen Crossmatch Spec Expiration Date 09/10/16 09/10/16 09/10/16 07:00 07:00 07:11 WBC 6.8 RBC 2.34 L Hgb 7.7 L D Hct 23.8 L MCV 101.8 H MCHC 32.4 RDW 13.4 Plt Count 89 L MPV 10.1 Puncture Site ABG pH ABG pCO2 at Pt Temp ABG pO2 at Pt Temp ABG HCO3 ABG O2 Sat (Measured) ABG O2 Content ABG Base Excess Gelacio Test O2 Delivery Device Oxygen Flow Rate Vent Mode Vent Rate Mechanical Rate PEEP Pressure Support Vent Sodium 144 Potassium 4.6 Chloride 103 Carbon Dioxide 26 Anion Gap 15 BUN 90 H D Creatinine 7.8 H* POC Glucometer Random Glucose 100 D Calcium 7.9 L Phosphorus 6.9 H Hep A IgM Ab Confirm Hepatitis A Ab Total Hep Bs Antigen Hep Bs Antibody Hep B Core Total Ab Blood Type A POSITIVE Antibody Screen Negative Crossmatch See Detail Spec Expiration Date Problem List - Problems (1) ESRD (end stage renal disease) Code(s): N18.6 - END STAGE RENAL DISEASE (2) Peritoneal dialysis catheter dysfunction Code(s): T85.611A - BREAKDOWN OF INTRAPERITONEAL DIALYSIS CATHETER, INIT Qualifiers: Encounter type: initial encounter Qualified Code(s): T85.611A - Breakdown (mechanical) of intraperitoneal dialysis catheter, initial encounter (3) Uremia Code(s): N19 - UNSPECIFIED KIDNEY FAILURE (4) Acute respiratory failure Code(s): J96.00 - ACUTE RESPIRATORY FAILURE, UNSP W HYPOXIA OR HYPERCAPNIA Qualifiers: Respiratory failure complication: hypoxia Qualified Code(s): J96.01 - Acute respiratory failure with hypoxia (5) Altered mental status Code(s): R41.82 - ALTERED MENTAL STATUS, UNSPECIFIED Qualifiers: Altered mental status type: transient alteration of awareness Qualified Code(s): R40.4 - Transient alteration of awareness (6) Anemia Code(s): D64.9 - ANEMIA, UNSPECIFIED Qualifiers: Other causes of anemia: chronic disease, kidney (7) Coronary artery disease Code(s): I25.10 - ATHSCL HEART DISEASE OF [place] CORONARY ARTERY W/O ANG PCTRS Qualifiers: Coronary Disease-Associated Artery/Lesion type: [place] artery [place] vs. transplanted heart: [place] heart Associated angina: without angina Qualified Code(s): I25.10 - Atherosclerotic heart disease of [place] coronary artery without angina pectoris (8) ESRD (end stage renal disease) on dialysis Code(s): N18.6 - END STAGE RENAL DISEASE Z99.2 - DEPENDENCE ON RENAL DIALYSIS (9) Hypertension Code(s): I10 - ESSENTIAL (PRIMARY) HYPERTENSION Qualifiers: Hypertension type: essential hypertension Qualified Code(s): I10 - Essential (primary) hypertension (10) Insulin dependent diabetes mellitus Code(s): E11.9 - TYPE 2 DIABETES MELLITUS WITHOUT COMPLICATIONS Z79.4 - MANAGER WIRELESS (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 IMP ACUTE HYPOXEMIC/HYPERCAPNEIC RESPIRATORY FAILURE ALTERED MENTAL STATUS ?TOXIC METABOLIC,MEDS ESRD ON HD CHF ASHD S/P CABG IDDM DEMENTIA PLAN SUPPLEMENTAL O2 INHALED BRONCHODILATORS HD PER RENAL (?) HOSPICE Dr Loera
--- NOTE | 2016-09-10 13:28 | CON.NEURO ---
Consult Consult Specialty:: Neurology - History of Present Illness Chief Complaint: lethargy History of Present Illness: 81 year old man, known to me, with PMhx of ESRD on HD -> PD (2 weeks ago), Hypertension, IDDM, Dementia (progressive over the past 2 years) who presented from home --malfunctioning PD catheter (tip was not in the pelvis) and admitted for replacement of the catheter. s/p laproscopic PD catheter replacement with lysis of adhesions. Pt noted to be lethargic in the ED and abg --C02 retention. CT head negative. as per notices her been sleepy and more difficult arouse. Keppra started over last year for possible seizures - she is concerned if RX contributing to sedation. no clinical seizures noted. also states occasional twitch movement in the RUE. 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 Cardio/Vascular: Yes: CAD Renal/: Yes: Renal Failure, Hemodialysis, Other (on diaylsis ) Psych: Yes: Psychosis - Past Surgical History Past Surgical History: Yes: AV Fistula/Graft, CABG - Alcohol/Substance Use Hx Alcohol Use: No - Smoking History Smoking history: Never smoked Have you smoked in the past 12 months: No Aproximately how many cigarettes per day: 0 If you are a former smoker, when did you quit?: 30YRS - Social History Usual Living Arrangement: With Spouse History of Recent Travel: No Home Medications - Allergies Allergies/Adverse Reactions: Allergies Allergy/AdvReac Type Severity Reaction Status Date / Time No Known Drug Allergies Allergy Verified 09/07/16 10:13 - Home Medications Home Medications: Ambulatory Orders Acetaminophen [Tylenol] 650 mg PO DAILY PRN 03/07/16 Aspirin [ASA -] 81 mg PO DAILY 03/07/16 Insulin Lispro [Humalog] 0 unit SQ ASDIR PRN 03/07/16 Megestrol Acetate 40 mg PO DAILY 03/07/16 Polyethylene Glycol 3350 [Miralax 119 gm Btl -] 17 gm PO DAILY 03/07/16 Sevelamer Carbonate [Renvela -] 2,400 mg PO TID 03/07/16 Sodium Polystyrene Sulfon/Sorb [Kionex 15 gm/60 ml Suspension] 30 gm PO ASDIR Vit B Cmplx 3/FA/Vit C/Biotin [Rsisa-Kimani Rx Tablet] 1 each PO DAILY 03/07/16 Ipratropium/Albuterol Sulfate [Combivent Respimat Inhal [place]] 4 gm IH QID PRN 07/20/16 Mirtazapine [Remeron -] 7.5 mg PO HS 07/20/16 Atorvastatin Ca [Lipitor] 40 mg PO HS tablet 07/22/16 Isosorbide Mononitrate [Imdur -] 30 mg PO HS tab.sr.24h 07/22/16 Levetiracetam [Keppra -] 250 mg PO BID tablet 07/22/16 Losartan Potassium [Cozaar -] 50 mg PO DAILY tablet 07/22/16 Amlodipine Besylate 5 mg PO DAILY 09/07/16 Insulin Glargine,Hum.rec.anlog [Lantus (nf)] 26 units SQ ACBK 09/07/16 Nebivolol [Bystolic -] 5 mg PO BID 09/07/16 Physical Exam-Neuro Vital Signs: Vital Signs Temperature 99.5 F 09/10/16 06:55 Pulse Rate 60 09/10/16 09:30 Respiratory Rate 18 09/10/16 09:30 Blood Pressure 148/61 09/10/16 09:30 O2 Sat by Pulse Oximetry (%) 99 09/10/16 11:14 Labs: CBC, BMP 09/10/16 07:00 09/10/16 07:00 INR, PTT INR 1.01 (0.82-1.09) 09/07/16 11:33 - Neuro Exam Level Of Consciousness: Yes: Stuporous (pt will open eyes upon stimulation, though limited interactions, chewing motion of mouth, no focal twitching noted, limited motor strength eval , plantars dwon, no asterixis noted, pt non ambulatory ) Imaging - Results Cat Scan: Report Reviewed Problem List - Problems (1) Acute respiratory failure with hypoxia and hypercapnia Code(s): J96.01 - ACUTE RESPIRATORY FAILURE WITH HYPOXIA J96.02 - ACUTE RESPIRATORY FAILURE WITH HYPERCAPNIA (2) Altered mental status Code(s): R41.82 - ALTERED MENTAL STATUS, UNSPECIFIED Qualifiers: Altered mental status type: transient alteration of awareness Qualified Code(s): R40.4 - Transient alteration of awareness (3) Dementia Code(s): F03.90 - UNSPECIFIED DEMENTIA WITHOUT BEHAVIORAL DISTURBANCE Qualifiers: Dementia type: Alzheimer's disease Alzheimer's disease onset: unspecified onset Dementia behavioral disturbance: without behavioral disturbance Qualified Code(s): G30.9 - Alzheimer's disease, unspecified; F02.80 - Dementia in other diseases classified elsewhere without behavioral disturbance (4) ESRD (end stage renal disease) on dialysis Code(s): N18.6 - END STAGE RENAL DISEASE Z99.2 - DEPENDENCE ON RENAL DIALYSIS (5) Seizure Code(s): R56.9 - UNSPECIFIED CONVULSIONS (6) Weakness Code(s): R53.1 - WEAKNESS Assessment/Plan 81 year old man PMhx of ESRD on HD -> PD (s/p 2 weeks ago), Hypertension, IDDM , Dementia (progressive over the past 2 years) who presented from home with malfunctioning PD catheter (tip was not in the pelvis) and admitted for replacement of the catheter/worsening uremia s/p PD called for persistent lethargy likely multifactorial given progressive dementia in setting of uremic factors ( ammonia 2/1 WNL) will get routine EEG to ensure no subclinical seizures doubt Keppra contributing to sedation, but ok for trial off keppra ( seizures have been poorly characterized, syncopal vs hypotensive events) macrocytic anemia- FU B12, MMA, A1c, TSh, UA (? if anuric) agree to have DC'ed mirtazapine/sedatives. Thanks and please call any questions Dr Prado [phone]
[2016-09-10 14:20] LABS: ARTERIAL BLD GAS O2 SATURATION 80.4 % (90-98.9); ARTERIAL BLOOD GAS BASE EXCESS 2.9 meq/l (-2-2); ARTERIAL BLOOD GAS HCO3 29.7 meq/L (22-26)
[2016-09-10 14:22] LABS: ALLENS TEST POSITIVE; ART PUNCT SITE RIGHT BRACHIAL; ARTERIAL BLOOD GAS PO2 49.2 mmHg (70-100); LPM/O2% 40%; PT. ON O2? YES
[2016-09-10 14:23] LABS: MECH. VENT. BIPAP; TYPE OF O2 BIPAP
[2016-09-10 14:25] LABS: VENT RATE 14; VT/PRESS 14
[2016-09-10] MEDS: ACETAMINOPHEN 325 MG TABLET (FP) PO PRN (21:16)
[2016-09-10] MEDS: ISOSORBIDE MONONITRATE 30 MG TAB.SR.24H (FP) PO SCH (21:16)
[2016-09-10] MEDS: ATORVASTATIN CA 40 MG TABLET (FP) PO SCH (21:16)
[2016-09-10] MEDS ORDERED: AMPICILLIN NA/SULBACTAM NA 1.5 GM/100 ML PRE-DOCKED IVPB ONE (22:00)
[2016-09-11] MEDS ORDERED: AMPICILLIN NA/SULBACTAM NA 1.5 GM/100 ML PRE-DOCKED IVPB SCH (02:00)
[2016-09-11] MEDS ORDERED: PT OWN MED DRAWER 7, Y5N ONE (07:58)
[2016-09-11 08:17] LABS: BASOPHIL 0.7 % (0-2.0); EOSINOPHIL 7.8 % (0-4.5); MCH 32.7 pg (25.7-33.7); MCHC 33.2 g/dl (32.0-35.9); MEAN CELL VOLUME 98.4 fl (80-96); MEAN PLT VOLUME 10.2 fl (7.5-11.1); NEUTROPHILS 65.4 % (42.8-82.8); PLATELET COUNT 81 K/MM3 (134-434); RDW 16.1 % (11.9-15.9)
[2016-09-11] MEDS: SEVELAMER CARBONATE 2.4 GM POWDER PACKET PO SCH ×3 (08:22→17:13)
[2016-09-11 09:03] LABS: CALCIUM 8.1 mg/dL (8.5-10.1); PHOSPHOROUS 5.2 mg/dL (2.5-4.9); THYROID STIMULATING HORMONE 1.85 uIU/ml (0.358-3.74)
[2016-09-11] MEDS: NEBIVOLOL 5 MG TABLET (FP) PO SCH ×2 (09:13→22:21)
[2016-09-11] MEDS: LOSARTAN POTASSIUM 50 MG TABLET (FP) PO SCH (09:13)
[2016-09-11] MEDS: ASPIRIN 81 MG CHEWABLE TABLETS PO SCH (09:13)
[2016-09-11] MEDS: VITAMIN B COMP W-C 1 EA TABLET PO SCH (09:14)
[2016-09-11] MEDS: amLODIPine BESYLATE 5 MG TABLET (FP) PO SCH (09:14)
[2016-09-11] MEDS: MEGESTROL ACETATE 40 MG TABLET PO SCH (09:14)
[2016-09-11] MEDS: POLYETHYLENE GLYCOL 3350 119 GM BTL PO SCH (09:28)
--- NOTE | 2016-09-11 10:13 | PN ---
Progress Note (short form) - Note Progress Note: Renal Follow up for ESRD on HD Pt seen and examined at the bedside lethagic on BIPAP s/p dialysis yesterday s/p PRBC transfusion yesterday + Fever overnight Vital Signs Temperature 99.3 F 09/11/16 06:00 Pulse Rate 66 09/11/16 08:24 Respiratory Rate 20 09/11/16 08:24 Blood Pressure 135/75 09/11/16 08:24 O2 Sat by Pulse Oximetry (%) 100 09/10/16 21:00 Intake & Output 09/08/16 09/09/16 09/10/16 09/11/16 23:59 23:59 23:59 23:59 Intake Total 391 801 4290 Output Total 0 0 Balance 105 549 2552 Weight 141 lb 141 lb 139 lb 3.2 oz Gen: awake and alert HEENT: NC/AT, No JVD CVS: RRR, No M/R Lungs: CTA Abd: soft NT/ND. Abd dressing pad in place. Ext: No edema, clubbing or cyanosis CBC, BMP 09/11/16 05:50 09/11/16 05:50 Current Medications Acetaminophen (Tylenol -) 650 mg PO DAILY PRN PRN Reason: PAIN Last Admin: 09/10/16 21:16 Dose: 650 mg Albuterol/Ipratropium (Duoneb -) 1 amp NEB Q4H PRN PRN Reason: SHORTNESS OF BREATH Amlodipine Besylate (Norvasc -) 5 mg PO DAILY [facility] Last Admin: 09/11/16 09:14 Dose: 5 mg Ampicillin Sodium/Sulbactam Sodium (Unasyn 1.5 Gm (Pre-Docked)) 1.5 gm IVPB Q8H -IV ON[facility] Aspirin (Asa -) 81 mg PO DAILY [facility] Last Admin: 09/11/16 09:13 Dose: 81 mg Atorvastatin Calcium (Lipitor -) 40 mg PO HS ONUR Last Admin: 09/10/16 21:16 Dose: 40 mg Insulin Aspart (Novolog Vial Sliding Scale -) 1 vial SQ ACHS ON[facility] PRN Reason: Protocol Last Admin: 09/10/16 21:25 Dose: 6 units Insulin Detemir (Levemir Vial) 26 units SQ ACBK ON[facility] Last Admin: 09/10/16 06:05 Dose: Not Given Isosorbide Mononitrate (Imdur -) 30 mg PO HS [facility] Last Admin: 09/10/16 21:16 Dose: 30 mg Losartan Potassium (Cozaar -) 50 mg PO DAILY [facility] Last Admin: 09/11/16 09:13 Dose: 50 mg Megestrol Acetate (Megace -) 40 mg PO DAILY [facility] Last Admin: 09/11/16 09:14 Dose: 40 mg Multivit/Ca Carb/B Cmplx/FA/Prenat (Nephro-Kimani -) 1 tablet PO DAILY [facility] Last Admin: 09/11/16 09:14 Dose: 1 tablet Nebivolol (Bystolic -) 5 mg PO BID [facility] Last Admin: 09/11/16 09:13 Dose: 5 mg Polyethylene Glycol (Miralax (For Daily Use) -) 17 gm PO DAILY [facility] Last Admin: 09/11/16 09:28 Dose: 17 gm Sevelamer Carbonate (Renvela Powder Packet -) 2.4 gm PO TIDCM [facility] Last Admin: 09/11/16 08:22 Dose: 2.4 gm A/P 81 year old Gentleman with PMhx of ESRD on HD -> PD (started 2 weeks ago), Hypertension, IDDM, Dementia (progressive over the past 2 years) who presented from home with malfunctioning PD catheter (tip was not in the pelvis) and admitted for replacement of the catheter. #Uremic Encephlopathy/AMS After initial improvement MS declined the last 2 days ABG continues to show hypercarbia Neurology consult appreciated off Keppra and Remeron #Fevers ? Etiology ? aspiration -> check CXR Emperic VAnco and Zosyn #Hypercarbia/Hypxoia Bipap settings adjusted yesterday Repeat ABG today Pulmonary follow up #Acute Anemia ? Source of blood loss CT of Abd showed no fluid colletion to indicate hematoma responded well to transfusion trend CBC #PD catheter dysfunction s/p PD catheter exchanged #ESRD No indication for dialysis today #Hypertension BP at goal currently continue current meds Tayo Pederson DO
[2016-09-11] MEDS ORDERED: MINERAL OIL ENEMA 133 ML ENEMA PR ONE (10:14)
[2016-09-11] MEDS ORDERED: VANCOMYCIN 1 GRAM (PRE-DOCKED) 250 ML IVPB ONE (10:50)
[2016-09-11] MEDS ORDERED: PIPERACILLIN/TAZOB 2.25 GM/50 ML PRE-DOCKED BAG IVPB ONE (11:00)
[2016-09-11] MEDS ORDERED: INSULIN (NOVOLOG) ASPART 100 UNITS/ML 10ML VIAL ONE ×2 (11:43→17:28)
[2016-09-11] MEDS: INSULIN SLIDING SCALE (NOVOLOG) 1 VIAL SQ SCH ×3 (11:48→22:14)
--- NOTE | 2016-09-11 12:23 | PN ---
Progress Note, Physician Chief Complaint: More awake History of Present Illness: Had fever ,on unasyn and vanco - Current Medication List Current Medications: Active Medications Acetaminophen (Tylenol -) 650 mg PO DAILY PRN PRN Reason: PAIN Last Admin: 09/10/16 21:16 Dose: 650 mg Albuterol/Ipratropium (Duoneb -) 1 amp NEB Q4H PRN PRN Reason: SHORTNESS OF BREATH Amlodipine Besylate (Norvasc -) 5 mg PO DAILY [facility] Last Admin: 09/11/16 09:14 Dose: 5 mg Ampicillin Sodium/Sulbactam Sodium (Unasyn 1.5 Gm (Pre-Docked)) 1.5 gm IVPB Q8H -IV ONUR Aspirin (Asa -) 81 mg PO DAILY [facility] Last Admin: 09/11/16 09:13 Dose: 81 mg Atorvastatin Calcium (Lipitor -) 40 mg PO HS [facility] Last Admin: 09/10/16 21:16 Dose: 40 mg Piperacillin Sod/Tazobactam (Sod 2.25 gm/ Dextrose) 50 mls @ 100 mls/hr IVPB BID [facility] Insulin Aspart (Novolog Vial Sliding Scale -) 1 vial SQ ACHS ONUR PRN Reason: Protocol Last Admin: 09/11/16 11:48 Dose: 8 units Insulin Detemir (Levemir Vial) 26 units SQ ACBK [facility] Last Admin: 09/10/16 06:05 Dose: Not Given Isosorbide Mononitrate (Imdur -) 30 mg PO HS [facility] Last Admin: 09/10/16 21:16 Dose: 30 mg Losartan Potassium (Cozaar -) 50 mg PO DAILY [facility] Last Admin: 09/11/16 09:13 Dose: 50 mg Megestrol Acetate (Megace -) 40 mg PO DAILY [facility] Last Admin: 09/11/16 09:14 Dose: 40 mg Multivit/Ca Carb/B Cmplx/FA/Prenat (Nephro-Kimani -) 1 tablet PO DAILY [facility] Last Admin: 09/11/16 09:14 Dose: 1 tablet Nebivolol (Bystolic -) 5 mg PO BID [facility] Last Admin: 09/11/16 09:13 Dose: 5 mg Polyethylene Glycol (Miralax (For Daily Use) -) 17 gm PO DAILY [facility] Last Admin: 09/11/16 09:28 Dose: 17 gm Sevelamer Carbonate (Renvela Powder Packet -) 2.4 gm PO TIDCM [facility] Last Admin: 09/11/16 12:12 Dose: 2.4 gm - Objective Vital Signs: Vital Signs Temperature 99.3 F 09/11/16 06:00 Pulse Rate 66 09/11/16 08:24 Respiratory Rate 20 09/11/16 08:24 Blood Pressure 135/75 09/11/16 08:24 O2 Sat by Pulse Oximetry (%) 100 09/10/16 21:00 Constitutional: Yes: Calm Eyes: Yes: WNL HENT: Yes: WNL Neck: Yes: WNL Cardiovascular: Yes: WNL Respiratory: Yes: On BiPap Gastrointestinal: Yes: Normal Bowel Sounds ...Rectal Exam: Yes: Deferred Genitourinary: Yes: Anuria Musculoskeletal: Yes: Muscle Weakness Labs: CBC, BMP 09/11/16 05:50 09/11/16 05:50 INR, PTT INR 1.01 (0.82-1.09) 09/07/16 11:33 Assessment/Plan Sugar running low,reduce Lovemir
--- NOTE | 2016-09-11 13:43 | PN ---
Progress Note (short form) - Note Progress Note: No acute events overnight. According to the he is more alert today. On BiPAP. Intake & Output 09/08/16 09/09/16 09/10/16 09/11/16 23:59 23:59 23:59 23:59 Intake Total 111 994 3241 Output Total 0 0 Balance 401 893 2029 Weight 141 lb 141 lb 139 lb 3.2 oz Last Vital Signs Temp Pulse Resp BP Pulse Ox 99.3 F 66 20 135/75 100 09/11/16 06:00 09/11/16 08:24 09/11/16 08:24 09/11/16 08:24 09/10/16 21:00 Active Medications Acetaminophen (Tylenol -) 650 mg PO DAILY PRN PRN Reason: PAIN Last Admin: 09/10/16 21:16 Dose: 650 mg Albuterol/Ipratropium (Duoneb -) 1 amp NEB Q4H PRN PRN Reason: SHORTNESS OF BREATH Amlodipine Besylate (Norvasc -) 5 mg PO DAILY [facility] Last Admin: 09/11/16 09:14 Dose: 5 mg Ampicillin Sodium/Sulbactam Sodium (Unasyn 1.5 Gm (Pre-Docked)) 1.5 gm IVPB Q8H -IV [facility] Aspirin (Asa -) 81 mg PO DAILY [facility] Last Admin: 09/11/16 09:13 Dose: 81 mg Atorvastatin Calcium (Lipitor -) 40 mg PO HS [facility] Last Admin: 09/10/16 21:16 Dose: 40 mg Piperacillin Sod/Tazobactam (Sod 2.25 gm/ Dextrose) 50 mls @ 100 mls/hr IVPB BID [facility] Insulin Aspart (Novolog Vial Sliding Scale -) 1 vial SQ ACHS [facility] PRN Reason: Protocol Last Admin: 09/11/16 11:48 Dose: 8 units Insulin Detemir (Levemir Vial) 12 units SQ ACBK [facility] Isosorbide Mononitrate (Imdur -) 30 mg PO HS [facility] Last Admin: 09/10/16 21:16 Dose: 30 mg Losartan Potassium (Cozaar -) 50 mg PO DAILY [facility] Last Admin: 09/11/16 09:13 Dose: 50 mg Megestrol Acetate (Megace -) 40 mg PO DAILY [facility] Last Admin: 09/11/16 09:14 Dose: 40 mg Multivit/Ca Carb/B Cmplx/FA/Prenat (Nephro-Kimani -) 1 tablet PO DAILY [facility] Last Admin: 09/11/16 09:14 Dose: 1 tablet Nebivolol (Bystolic -) 5 mg PO BID [facility] Last Admin: 09/11/16 09:13 Dose: 5 mg Polyethylene Glycol (Miralax (For Daily Use) -) 17 gm PO DAILY [facility] Last Admin: 09/11/16 09:28 Dose: 17 gm Sevelamer Carbonate (Renvela Powder Packet -) 2.4 gm PO TIDCM [facility] Last Admin: 09/11/16 12:12 Dose: 2.4 gm Constitutional: Yes: Lethargic but arousable, NAD Eyes: Yes: WNL HENT: Yes: (-) Pallor Neck: Yes: WNL Respiratory: Yes: few scattered rhonchi Gastrointestinal: Yes: WNL ...Rectal Exam: Yes: Deferred Renal/: Yes: Anuria Laboratory Results - last 24 hr 09/10/16 09/10/16 09/10/16 13:51 14:20 16:45 WBC RBC Hgb Hct MCV MCHC RDW Plt Count MPV Neutrophils % Lymphocytes % Monocytes % Eosinophils % Basophils % ESR Puncture Site Right brachial ABG pH 7.30 L ABG pCO2 at Pt Temp 62.5 H* ABG pO2 at Pt Temp 49.2 L* D ABG HCO3 29.7 H ABG O2 Sat (Measured) 80.4 L ABG O2 Content 10.1 L ABG Base Excess 2.9 H Gelacio Test Positive O2 Delivery Device Bipap Oxygen Flow Rate 40% Vent Mode S/t Vent Rate 14 Mechanical Rate Bipap PEEP 6.0 Pressure Support Vent 14 Sodium Potassium Chloride Carbon Dioxide Anion Gap BUN Creatinine POC Glucometer 382 Random Glucose Hemoglobin A1c % Calcium Phosphorus Vitamin B12 1244 H TSH 09/10/16 09/11/16 09/11/16 21:23 05:50 05:50 WBC 7.0 RBC 2.87 L D Hgb 9.4 L D Hct 28.2 L D MCV 98.4 H MCHC 33.2 RDW 16.1 H D Plt Count 81 L MPV 10.2 Neutrophils % 65.4 Lymphocytes % 16.5 Monocytes % 9.6 Eosinophils % 7.8 H Basophils % 0.7 ESR Puncture Site ABG pH ABG pCO2 at Pt Temp ABG pO2 at Pt Temp ABG HCO3 ABG O2 Sat (Measured) ABG O2 Content ABG Base Excess Gelacio Test O2 Delivery Device Oxygen Flow Rate Vent Mode Vent Rate Mechanical Rate PEEP Pressure Support Vent Sodium 143 Potassium 4.3 Chloride 104 Carbon Dioxide 30 Anion Gap 9 BUN 69 H D Creatinine 6.0 H D POC Glucometer 262 Random Glucose 173 H D Hemoglobin A1c % Calcium 8.1 L Phosphorus 5.2 H D Vitamin B12 TSH 1.85 D 09/11/16 09/11/16 09/11/16 05:50 05:50 06:05 WBC RBC Hgb Hct MCV MCHC RDW Plt Count MPV Neutrophils % Lymphocytes % Monocytes % Eosinophils % Basophils % ESR 38 H Puncture Site ABG pH ABG pCO2 at Pt Temp ABG pO2 at Pt Temp ABG HCO3 ABG O2 Sat (Measured) ABG O2 Content ABG Base Excess Gelacio Test O2 Delivery Device Oxygen Flow Rate Vent Mode Vent Rate Mechanical Rate PEEP Pressure Support Vent Sodium Potassium Chloride Carbon Dioxide Anion Gap BUN Creatinine POC Glucometer 160 Random Glucose Hemoglobin A1c % 7.0 H D Calcium Phosphorus Vitamin B12 TSH 09/11/16 11:35 WBC RBC Hgb Hct MCV MCHC RDW Plt Count MPV Neutrophils % Lymphocytes % Monocytes % Eosinophils % Basophils % ESR Puncture Site ABG pH ABG pCO2 at Pt Temp ABG pO2 at Pt Temp ABG HCO3 ABG O2 Sat (Measured) ABG O2 Content ABG Base Excess Gelacio Test O2 Delivery Device Oxygen Flow Rate Vent Mode Vent Rate Mechanical Rate PEEP Pressure Support Vent Sodium Potassium Chloride Carbon Dioxide Anion Gap BUN Creatinine POC Glucometer 268 Random Glucose Hemoglobin A1c % Calcium Phosphorus Vitamin B12 TSH Problem List - Problems (1) ESRD (end stage renal disease) Code(s): N18.6 - END STAGE RENAL DISEASE (2) Peritoneal dialysis catheter dysfunction Code(s): T85.611A - BREAKDOWN OF INTRAPERITONEAL DIALYSIS CATHETER, INIT Qualifiers: Encounter type: initial encounter Qualified Code(s): T85.611A - Breakdown (mechanical) of intraperitoneal dialysis catheter, initial encounter (3) Uremia Code(s): N19 - UNSPECIFIED KIDNEY FAILURE (4) Acute respiratory failure Code(s): J96.00 - ACUTE RESPIRATORY FAILURE, UNSP W HYPOXIA OR HYPERCAPNIA Qualifiers: Respiratory failure complication: hypoxia Qualified Code(s): J96.01 - Acute respiratory failure with hypoxia (5) Altered mental status Code(s): R41.82 - ALTERED MENTAL STATUS, UNSPECIFIED Qualifiers: Altered mental status type: transient alteration of awareness Qualified Code(s): R40.4 - Transient alteration of awareness (6) Anemia Code(s): D64.9 - ANEMIA, UNSPECIFIED Qualifiers: Other causes of anemia: chronic disease, kidney (7) Coronary artery disease Code(s): I25.10 - ATHSCL HEART DISEASE OF [place] CORONARY ARTERY W/O ANG PCTRS Qualifiers: Coronary Disease-Associated Artery/Lesion type: [place] artery [place] vs. transplanted heart: [place] heart Associated angina: without angina Qualified Code(s): I25.10 - Atherosclerotic heart disease of [place] coronary artery without angina pectoris (8) ESRD (end stage renal disease) on dialysis Code(s): N18.6 - END STAGE RENAL DISEASE Z99.2 - DEPENDENCE ON RENAL DIALYSIS (9) Hypertension Code(s): I10 - ESSENTIAL (PRIMARY) HYPERTENSION Qualifiers: Hypertension type: essential hypertension Qualified Code(s): I10 - Essential (primary) hypertension (10) Insulin dependent diabetes mellitus Code(s): E11.9 - TYPE 2 DIABETES MELLITUS WITHOUT COMPLICATIONS Z79.4 - MCC (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 IMP ACUTE HYPOXEMIC/HYPERCAPNEIC RESPIRATORY FAILURE ALTERED MENTAL STATUS ?TOXIC METABOLIC,MEDS ESRD ON HD CHF ASHD S/P CABG IDDM DEMENTIA PLAN NIPPV ADJUSTED -> BACK UP RATE INCREASED INHALED BRONCHODILATORS HD PER RENAL FOR VOLUME REMOVAL NEED FURTHER DISCUSSIONS FOR GOC -. HEALTH HAS BEEN PROGRESSIVELY DETERIORATING SINCE HIS ADMISSION LAST MARCH Dr Loera
--- NOTE | 2016-09-11 14:22 | PN ---
Progress Note, Physician History of Present Illness: 09/10/16 81 year old man, known to me, with PMhx of ESRD on HD -> PD (2 weeks ago ), Hypertension, IDDM, Dementia (progressive over the past 2 years) who presented from home --malfunctioning PD catheter (tip was not in the pelvis) and admitted for replacement of the catheter. s/p laproscopic PD catheter replacement with lysis of adhesions. Pt noted to be lethargic in the ED and abg --C02 retention. CT head negative. as per notices her been sleepy and more difficult arouse. Keppra started over last year for possible seizures - she is concerned if RX contributing to sedation. no clinical seizures noted. also states occasional twitch movement in the RUE. FU: pt on BIPAB, as per was more alert in AM, fever overnight limited verbal output, not following requests no seizures noted - Current Medication List Current Medications: Active Medications Acetaminophen (Tylenol -) 650 mg PO DAILY PRN PRN Reason: PAIN Last Admin: 09/10/16 21:16 Dose: 650 mg Albuterol/Ipratropium (Duoneb -) 1 amp NEB Q4H PRN PRN Reason: SHORTNESS OF BREATH Amlodipine Besylate (Norvasc -) 5 mg PO DAILY [facility] Last Admin: 09/11/16 09:14 Dose: 5 mg Ampicillin Sodium/Sulbactam Sodium (Unasyn 1.5 Gm (Pre-Docked)) 1.5 gm IVPB Q8H -IV [facility] Aspirin (Asa -) 81 mg PO DAILY [facility] Last Admin: 09/11/16 09:13 Dose: 81 mg Atorvastatin Calcium (Lipitor -) 40 mg PO HS [facility] Last Admin: 09/10/16 21:16 Dose: 40 mg Piperacillin Sod/Tazobactam (Sod 2.25 gm/ Dextrose) 50 mls @ 100 mls/hr IVPB BID [facility] Insulin Aspart (Novolog Vial Sliding Scale -) 1 vial SQ ACHS [facility] PRN Reason: Protocol Last Admin: 09/11/16 11:48 Dose: 8 units Insulin Detemir (Levemir Vial) 12 units SQ ACBK [facility] Isosorbide Mononitrate (Imdur -) 30 mg PO HS [facility] Last Admin: 09/10/16 21:16 Dose: 30 mg Losartan Potassium (Cozaar -) 50 mg PO DAILY [facility] Last Admin: 09/11/16 09:13 Dose: 50 mg Megestrol Acetate (Megace -) 40 mg PO DAILY [facility] Last Admin: 09/11/16 09:14 Dose: 40 mg Multivit/Ca Carb/B Cmplx/FA/Prenat (Nephro-Kimani -) 1 tablet PO DAILY [facility] Last Admin: 09/11/16 09:14 Dose: 1 tablet Nebivolol (Bystolic -) 5 mg PO BID [facility] Last Admin: 09/11/16 09:13 Dose: 5 mg Polyethylene Glycol (Miralax (For Daily Use) -) 17 gm PO DAILY [facility] Last Admin: 09/11/16 09:28 Dose: 17 gm Sevelamer Carbonate (Renvela Powder Packet -) 2.4 gm PO TIDCM [facility] Last Admin: 09/11/16 12:12 Dose: 2.4 gm - Objective Vital Signs: Vital Signs Temperature 99.3 F 09/11/16 06:00 Pulse Rate 66 09/11/16 08:24 Respiratory Rate 20 09/11/16 08:24 Blood Pressure 135/75 09/11/16 08:24 O2 Sat by Pulse Oximetry (%) 100 09/10/16 21:00 Labs: CBC, BMP 09/11/16 05:50 09/11/16 05:50 INR, PTT INR 1.01 (0.82-1.09) 09/07/16 11:33 Problem List - Problems (1) Acute respiratory failure with hypoxia and hypercapnia Code(s): J96.01 - ACUTE RESPIRATORY FAILURE WITH HYPOXIA J96.02 - ACUTE RESPIRATORY FAILURE WITH HYPERCAPNIA (2) Altered mental status Code(s): R41.82 - ALTERED MENTAL STATUS, UNSPECIFIED Qualifiers: Altered mental status type: transient alteration of awareness Qualified Code(s): R40.4 - Transient alteration of awareness (3) Dementia Code(s): F03.90 - UNSPECIFIED DEMENTIA WITHOUT BEHAVIORAL DISTURBANCE Qualifiers: Dementia type: Alzheimer's disease Alzheimer's disease onset: unspecified onset Dementia behavioral disturbance: without behavioral disturbance Qualified Code(s): G30.9 - Alzheimer's disease, unspecified; F02.80 - Dementia in other diseases classified elsewhere without behavioral disturbance (4) ESRD (end stage renal disease) on dialysis Code(s): N18.6 - END STAGE RENAL DISEASE Z99.2 - DEPENDENCE ON RENAL DIALYSIS (5) Seizure Code(s): R56.9 - UNSPECIFIED CONVULSIONS (6) Weakness Code(s): R53.1 - WEAKNESS Assessment/Plan 81 year old man PMhx of ESRD on HD -> PD (s/p 2 weeks ago), Hypertension, IDDM , Dementia (progressive over the past 2 years) who presented from home with malfunctioning PD catheter and admitted for replacement of the catheter/ worsening uremia s/p PD called for persistent lethargy likely multifactorial given progressive dementia in setting of uremic factors ( ammonia 2/ WNL) vs infectious severe distal neuropathy with wasting ABX on board, no meningeal signs will get routine EEG to ensure no subclinical seizures holding KEppra ( seizures have been poorly characterized, syncopal vs hypotensive events) A1c, B12 WNL; macrocyic anemia agree to have DC'ed mirtazapine/sedatives. will follow Dr Prado [phone]
[2016-09-11] MEDS ORDERED: PIPERACILLIN/TAZOB 2.25 GM 2.25 GM in DEXTROSE 5%-WATER - 50 ML IVPB SCH (22:00)
[2016-09-11] MEDS: INSULIN DETEMIR 100 UNITS/ML MDV SQ SCH (22:15)
[2016-09-11] MEDS: ATORVASTATIN CA 40 MG TABLET (FP) PO SCH (22:21)
[2016-09-11] MEDS: ISOSORBIDE MONONITRATE 30 MG TAB.SR.24H (FP) PO SCH (22:22)
[2016-09-12] MEDS: INSULIN SLIDING SCALE (NOVOLOG) 1 VIAL SQ SCH ×4 (06:20→22:00)
[2016-09-12 07:13] LABS: BASOPHIL 0.9 % (0-2.0); EOSINOPHIL 6.7 % (0-4.5); MCH 32.4 pg (25.7-33.7); MEAN CELL VOLUME 98.1 fl (80-96); MEAN PLT VOLUME 10.2 fl (7.5-11.1); NEUTROPHILS 68.6 % (42.8-82.8); PLATELET COUNT 81 K/MM3 (134-434); RDW 15.5 % (11.9-15.9); WHITE BLOOD COUNT 8.4 K/mm3 (4.0-10.0)
[2016-09-12 07:42] LABS: BILIRUBIN,TOTAL 0.4 mg/dL (0.2-1.0); CALCIUM 8.2 mg/dL (8.5-10.1); CREATININE 7.3 mg/dL (0.7-1.3); MAGNESIUM 2.4 mg/dL (1.8-2.4); PHOSPHOROUS 5.8 mg/dL (2.5-4.9); TOT PROT 6.5 g/dl (6.4-8.2)
[2016-09-12] MEDS ORDERED: PT OWN MED DRAWER 7, Y5N ONE ×3 (07:49→17:22)
[2016-09-12] MEDS: SEVELAMER CARBONATE 2.4 GM POWDER PACKET PO SCH ×3 (07:54→17:26)
[2016-09-12] MEDS: INSULIN DETEMIR 100 UNITS/ML MDV SQ SCH (07:54)
[2016-09-12] MEDS: amLODIPine BESYLATE 5 MG TABLET (FP) PO SCH (09:11)
[2016-09-12] MEDS: NEBIVOLOL 5 MG TABLET (FP) PO SCH ×2 (09:11→22:06)
[2016-09-12] MEDS: LOSARTAN POTASSIUM 50 MG TABLET (FP) PO SCH (09:11)
[2016-09-12] MEDS: VITAMIN B COMP W-C 1 EA TABLET PO SCH (09:11)
[2016-09-12] MEDS: ASPIRIN 81 MG CHEWABLE TABLETS PO SCH (09:11)
[2016-09-12] MEDS: POLYETHYLENE GLYCOL 3350 119 GM BTL PO SCH (09:13)
--- NOTE | 2016-09-12 09:52 | PN ---
Progress Note, Physician History of Present Illness: Fully awake and talking His son is at bed side - Current Medication List Current Medications: Active Medications Acetaminophen (Tylenol -) 650 mg PO DAILY PRN PRN Reason: PAIN Last Admin: 09/10/16 21:16 Dose: 650 mg Albuterol/Ipratropium (Duoneb -) 1 amp NEB Q4H PRN PRN Reason: SHORTNESS OF BREATH Amlodipine Besylate (Norvasc -) 5 mg PO DAILY [facility] Last Admin: 09/12/16 09:11 Dose: 5 mg Ampicillin Sodium/Sulbactam Sodium (Unasyn 1.5 Gm (Pre-Docked)) 1.5 gm IVPB Q8H -IV [facility] Aspirin (Asa -) 81 mg PO DAILY [facility] Last Admin: 09/12/16 09:11 Dose: 81 mg Atorvastatin Calcium (Lipitor -) 40 mg PO HS [facility] Last Admin: 09/11/16 22:21 Dose: 40 mg Epoetin Silvestre (Epogen -) 10,000 units IVPUSH ONCE ONE Stop: 09/12/16 06:31 Piperacillin Sod/Tazobactam (Sod 2.25 gm/ Dextrose) 50 mls @ 100 mls/hr IVPB BID [facility] Vancomycin HCl 1,000 mg/ (Dextrose) 250 mls @ 250 mls/hr IVPB ONCE ONE Stop: 09/12/16 10:59 Insulin Aspart (Novolog Vial Sliding Scale -) 1 vial SQ ACHS [facility] PRN Reason: Protocol Last Admin: 09/12/16 06:20 Dose: Not Given Insulin Detemir (Levemir Vial) 12 units SQ ACBK [facility] Last Admin: 09/12/16 07:54 Dose: 12 units Isosorbide Mononitrate (Imdur -) 30 mg PO HS [facility] Last Admin: 09/11/16 22:22 Dose: 30 mg Losartan Potassium (Cozaar -) 50 mg PO DAILY [facility] Last Admin: 09/12/16 09:11 Dose: 50 mg Megestrol Acetate (Megace -) 40 mg PO DAILY [facility] Last Admin: 09/11/16 09:14 Dose: 40 mg Multivit/Ca Carb/B Cmplx/FA/Prenat (Nephro-Kimani -) 1 tablet PO DAILY [facility] Last Admin: 09/12/16 09:11 Dose: 1 tablet Nebivolol (Bystolic -) 5 mg PO BID [facility] Last Admin: 09/12/16 09:11 Dose: 5 mg Polyethylene Glycol (Miralax (For Daily Use) -) 17 gm PO DAILY [facility] Last Admin: 09/12/16 09:13 Dose: 17 gm Sevelamer Carbonate (Renvela Powder Packet -) 2.4 gm PO TIDCM [facility] Last Admin: 09/12/16 07:54 Dose: 2.4 gm - Objective Vital Signs: Vital Signs Temperature 98.1 F 09/12/16 02:00 Pulse Rate 82 09/12/16 05:55 Respiratory Rate 20 09/12/16 05:55 Blood Pressure 147/77 09/12/16 05:55 O2 Sat by Pulse Oximetry (%) 100 09/11/16 19:55 Constitutional: Yes: Calm Eyes: Yes: WNL HENT: Yes: WNL Neck: Yes: WNL Cardiovascular: Yes: WNL Respiratory: Yes: On Nasal O2 Gastrointestinal: Yes: WNL ...Rectal Exam: Yes: Deferred Genitourinary: Yes: Anuria Neurological: Yes: Alert Labs: CBC, BMP 09/12/16 05:35 09/12/16 05:35 INR, PTT INR 1.01 (0.82-1.09) 09/07/16 11:33 Assessment/Plan Case discussed with Dr Pederson
--- NOTE | 2016-09-12 09:56 | PN ---
Progress Note (short form) - Note Progress Note: Renal Follow up for ESRD on HD Pt seen and examined at the bedside more awake and alert today son at the bedside (physican) denies any pain or sob + cough ate breakfast Vital Signs Temperature 98.1 F 09/12/16 02:00 Pulse Rate 82 09/12/16 05:55 Respiratory Rate 20 09/12/16 05:55 Blood Pressure 147/77 09/12/16 05:55 O2 Sat by Pulse Oximetry (%) 100 09/11/16 19:55 Intake & Output 09/09/16 09/10/16 09/11/16 09/12/16 23:59 23:59 23:59 23:59 Intake Total 760 1000 400 Output Total 0 0 Balance 760 1000 400 Weight 141 lb 141 lb 139 lb 3.2 oz 142 lb 9.6 oz Gen: awake and alert HEENT: NC/AT, No JVD CVS: RRR, No M/R Lungs: CTA Abd: soft NT/ND. Abd dressing pad in place. Ext: No edema, clubbing or cyanosis CBC, BMP 09/12/16 05:35 09/12/16 05:35 Current Medications Acetaminophen (Tylenol -) 650 mg PO DAILY PRN PRN Reason: PAIN Last Admin: 09/10/16 21:16 Dose: 650 mg Albuterol/Ipratropium (Duoneb -) 1 amp NEB Q4H PRN PRN Reason: SHORTNESS OF BREATH Amlodipine Besylate (Norvasc -) 5 mg PO DAILY [facility] Last Admin: 09/12/16 09:11 Dose: 5 mg Ampicillin Sodium/Sulbactam Sodium (Unasyn 1.5 Gm (Pre-Docked)) 1.5 gm IVPB Q8H -IV ONUR Aspirin (Asa -) 81 mg PO DAILY [facility] Last Admin: 09/12/16 09:11 Dose: 81 mg Atorvastatin Calcium (Lipitor -) 40 mg PO HS [facility] Last Admin: 09/11/16 22:21 Dose: 40 mg Epoetin Silvestre (Epogen -) 10,000 units IVPUSH ONCE ONE Stop: 09/12/16 06:31 Piperacillin Sod/Tazobactam (Sod 2.25 gm/ Dextrose) 50 mls @ 100 mls/hr IVPB BID ONUR Vancomycin HCl 1,000 mg/ (Dextrose) 250 mls @ 250 mls/hr IVPB ONCE ONE Stop: 09/12/16 10:59 Insulin Aspart (Novolog Vial Sliding Scale -) 1 vial SQ ACHS [facility] PRN Reason: Protocol Last Admin: 09/12/16 06:20 Dose: Not Given Insulin Detemir (Levemir Vial) 12 units SQ ACBK [facility] Last Admin: 09/12/16 07:54 Dose: 12 units Isosorbide Mononitrate (Imdur -) 30 mg PO HS [facility] Last Admin: 09/11/16 22:22 Dose: 30 mg Losartan Potassium (Cozaar -) 50 mg PO DAILY [facility] Last Admin: 09/12/16 09:11 Dose: 50 mg Megestrol Acetate (Megace -) 40 mg PO DAILY [facility] Last Admin: 09/11/16 09:14 Dose: 40 mg Multivit/Ca Carb/B Cmplx/FA/Prenat (Nephro-Kimani -) 1 tablet PO DAILY [facility] Last Admin: 09/12/16 09:11 Dose: 1 tablet Nebivolol (Bystolic -) 5 mg PO BID [facility] Last Admin: 09/12/16 09:11 Dose: 5 mg Polyethylene Glycol (Miralax (For Daily Use) -) 17 gm PO DAILY [facility] Last Admin: 09/12/16 09:13 Dose: 17 gm Sevelamer Carbonate (Renvela Powder Packet -) 2.4 gm PO TIDCM [facility] Last Admin: 09/12/16 07:54 Dose: 2.4 gm A/P 81 year old Gentleman with PMhx of ESRD on HD -> PD (started 2 weeks ago), Hypertension, IDDM, Dementia (progressive over the past 2 years) who presented from home with malfunctioning PD catheter (tip was not in the pelvis) and admitted for replacement of the catheter. #Uremic Encephlopathy/AMS MS improved today, from BIPAP vs. discontinuation of medications continue BIPAP For HD today #Fevers Emperic Vanco and Zosyn pending cutlure reports #Hypercarbia/Hypxoia Continue BIPAP and supplamental O2 as per pulmonary #Acute Anemia ? Source of blood loss hgb stable s/p transfusion Abd Ct w/o evidence of collection/hematoma #PD catheter dysfunction s/p PD catheter exchanged #ESRD For dialysis today Will consult vascular Sx regarding concern for re-circulation Tayo Pederson DO
--- NOTE | 2016-09-12 10:39 | PN ---
Progress Note, Physician History of Present Illness: pulmonary more awake,-resp distress on nasal o2 - Current Medication List Current Medications: Active Medications Acetaminophen (Tylenol -) 650 mg PO DAILY PRN PRN Reason: PAIN Last Admin: 09/10/16 21:16 Dose: 650 mg Albuterol/Ipratropium (Duoneb -) 1 amp NEB Q4H PRN PRN Reason: SHORTNESS OF BREATH Amlodipine Besylate (Norvasc -) 5 mg PO DAILY [facility] Last Admin: 09/12/16 09:11 Dose: 5 mg Ampicillin Sodium/Sulbactam Sodium (Unasyn 1.5 Gm (Pre-Docked)) 1.5 gm IVPB Q8H -IV ONUR Aspirin (Asa -) 81 mg PO DAILY [facility] Last Admin: 09/12/16 09:11 Dose: 81 mg Atorvastatin Calcium (Lipitor -) 40 mg PO HS [facility] Last Admin: 09/11/16 22:21 Dose: 40 mg Epoetin Silvestre (Epogen -) 10,000 units IVPUSH ONCE ONE Stop: 09/12/16 06:31 Piperacillin Sod/Tazobactam (Sod 2.25 gm/ Dextrose) 50 mls @ 100 mls/hr IVPB BID [facility] Vancomycin HCl 1,000 mg/ (Dextrose) 250 mls @ 250 mls/hr IVPB ONCE ONE Stop: 09/12/16 10:59 Insulin Aspart (Novolog Vial Sliding Scale -) 1 vial SQ ACHS [facility] PRN Reason: Protocol Last Admin: 09/12/16 06:20 Dose: Not Given Insulin Detemir (Levemir Vial) 12 units SQ ACBK [facility] Last Admin: 09/12/16 07:54 Dose: 12 units Isosorbide Mononitrate (Imdur -) 30 mg PO HS [facility] Last Admin: 09/11/16 22:22 Dose: 30 mg Losartan Potassium (Cozaar -) 50 mg PO DAILY [facility] Last Admin: 09/12/16 09:11 Dose: 50 mg Megestrol Acetate (Megace -) 40 mg PO DAILY [facility] Last Admin: 09/11/16 09:14 Dose: 40 mg Multivit/Ca Carb/B Cmplx/FA/Prenat (Nephro-Kimani -) 1 tablet PO DAILY [facility] Last Admin: 09/12/16 09:11 Dose: 1 tablet Nebivolol (Bystolic -) 5 mg PO BID [facility] Last Admin: 09/12/16 09:11 Dose: 5 mg Polyethylene Glycol (Miralax (For Daily Use) -) 17 gm PO DAILY [facility] Last Admin: 09/12/16 09:13 Dose: 17 gm Sevelamer Carbonate (Renvela Powder Packet -) 2.4 gm PO TIDCM [facility] Last Admin: 09/12/16 07:54 Dose: 2.4 gm - Objective Vital Signs: Vital Signs Temperature 98.1 F 09/12/16 02:00 Pulse Rate 82 09/12/16 05:55 Respiratory Rate 20 09/12/16 05:55 Blood Pressure 147/77 09/12/16 05:55 O2 Sat by Pulse Oximetry (%) 100 09/11/16 19:55 Constitutional: Yes: Well Nourished, Calm Eyes: Yes: WNL HENT: Yes: WNL Neck: Yes: WNL Cardiovascular: Yes: Regular Rate and Rhythm, S1, S2 Respiratory: Yes: Rales (bilateral crackles) Gastrointestinal: Yes: Normal Bowel Sounds, Soft Extremities: Yes: WNL Edema: No Labs: CBC, BMP 09/12/16 05:35 09/12/16 05:35 INR, PTT INR 1.01 (0.82-1.09) 09/07/16 11:33 Problem List - Problems (1) ESRD (end stage renal disease) Code(s): N18.6 - END STAGE RENAL DISEASE (2) Peritoneal dialysis catheter dysfunction Code(s): T85.611A - BREAKDOWN OF INTRAPERITONEAL DIALYSIS CATHETER, INIT Qualifiers: Encounter type: initial encounter Qualified Code(s): T85.611A - Breakdown (mechanical) of intraperitoneal dialysis catheter, initial encounter (3) Uremia Code(s): N19 - UNSPECIFIED KIDNEY FAILURE (4) Acute respiratory failure Code(s): J96.00 - ACUTE RESPIRATORY FAILURE, UNSP W HYPOXIA OR HYPERCAPNIA Qualifiers: Respiratory failure complication: hypoxia Qualified Code(s): J96.01 - Acute respiratory failure with hypoxia (5) Altered mental status Code(s): R41.82 - ALTERED MENTAL STATUS, UNSPECIFIED Qualifiers: Altered mental status type: transient alteration of awareness Qualified Code(s): R40.4 - Transient alteration of awareness (6) Anemia Code(s): D64.9 - ANEMIA, UNSPECIFIED Qualifiers: Other causes of anemia: chronic disease, kidney (7) Coronary artery disease Code(s): I25.10 - ATHSCL HEART DISEASE OF [place] CORONARY ARTERY W/O ANG PCTRS Qualifiers: Coronary Disease-Associated Artery/Lesion type: [place] artery [place] vs. transplanted heart: [place] heart Associated angina: without angina Qualified Code(s): I25.10 - Atherosclerotic heart disease of [place] coronary artery without angina pectoris (8) ESRD (end stage renal disease) on dialysis Code(s): N18.6 - END STAGE RENAL DISEASE Z99.2 - DEPENDENCE ON RENAL DIALYSIS (9) Hypertension Code(s): I10 - ESSENTIAL (PRIMARY) HYPERTENSION Qualifiers: Hypertension type: essential hypertension Qualified Code(s): I10 - Essential (primary) hypertension (10) Insulin dependent diabetes mellitus Code(s): E11.9 - TYPE 2 DIABETES MELLITUS WITHOUT COMPLICATIONS Z79.4 - TURBINE ENGINE ASSEMBLER (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 Assessment/Plan IMP ACUTE HYPOXEMIC/HYPERCAPNEIC RESPIRATORY FAILURE ALTERED MENTAL STATUS ?TOXIC METABOLIC,MEDS IMPROVING ESRD ON HD CHF ASHD S/P CABG IDDM DEMENTIA PLAN BIPAP PRN SUPPLEMENTAL O2 INHALED BRONCHODILATORS CHEST X-RAY HD PER RENAL F/U ABGS DR OBREGON Problem List - Problems (1) ESRD (end stage renal disease) Code(s): N18.6 - END STAGE RENAL DISEASE (2) Peritoneal dialysis catheter dysfunction Code(s): T85.611A - BREAKDOWN OF INTRAPERITONEAL DIALYSIS CATHETER, INIT Qualifiers: Encounter type: initial encounter Qualified Code(s): T85.611A - Breakdown (mechanical) of intraperitoneal dialysis catheter, initial encounter (3) Uremia Code(s): N19 - UNSPECIFIED KIDNEY FAILURE (4) Acute respiratory failure Code(s): J96.00 - ACUTE RESPIRATORY FAILURE, UNSP W HYPOXIA OR HYPERCAPNIA Qualifiers: Respiratory failure complication: hypoxia Qualified Code(s): J96.01 - Acute respiratory failure with hypoxia (5) Altered mental status Code(s): R41.82 - ALTERED MENTAL STATUS, UNSPECIFIED Qualifiers: Altered mental status type: transient alteration of awareness Qualified Code(s): R40.4 - Transient alteration of awareness (6) Anemia Code(s): D64.9 - ANEMIA, UNSPECIFIED Qualifiers: Other causes of anemia: chronic disease, kidney (7) Coronary artery disease Code(s): I25.10 - ATHSCL HEART DISEASE OF [place] CORONARY ARTERY W/O ANG PCTRS Qualifiers: Coronary Disease-Associated Artery/Lesion type: [place] artery [place] vs. transplanted heart: [place] heart Associated angina: without angina Qualified Code(s): I25.10 - Atherosclerotic heart disease of [place] coronary artery without angina pectoris (8) ESRD (end stage renal disease) on dialysis Code(s): N18.6 - END STAGE RENAL DISEASE Z99.2 - DEPENDENCE ON RENAL DIALYSIS (9) Hypertension Code(s): I10 - ESSENTIAL (PRIMARY) HYPERTENSION Qualifiers: Hypertension type: essential hypertension Qualified Code(s): I10 - Essential (primary) hypertension (10) Insulin dependent diabetes mellitus Code(s): E11.9 - TYPE 2 DIABETES MELLITUS WITHOUT COMPLICATIONS Z79.4 - TURBINE ENGINE ASSEMBLER (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
[2016-09-12] MEDS: MEGESTROL ACETATE 40 MG TABLET PO SCH (13:06)
[2016-09-12] MEDS ORDERED: VANCOMYCIN 1,000 MG in DEXTROSE 5%-WATER - 250 ML IVPB ONE (14:15)
[2016-09-12] MEDS ORDERED: EPOETIN ALFA 10,000 UNIT/1 ML VIAL IVPUSH ONE (14:15)
--- NOTE | 2016-09-12 18:57 | PN ---
Progress Note, Physician History of Present Illness: 09/10/16 81 year old man, known to me, with PMhx of ESRD on HD -> PD (2 weeks ago ), Hypertension, IDDM, Dementia (progressive over the past 2 years) who presented from home --malfunctioning PD catheter (tip was not in the pelvis) and admitted for replacement of the catheter. s/p laproscopic PD catheter replacement with lysis of adhesions. Pt noted to be lethargic in the ED and abg --C02 retention. CT head negative. as per notices her been sleepy and more difficult arouse. Keppra started over last year for possible seizures - she is concerned if RX contributing to sedation. no clinical seizures noted. also states occasional twitch movement in the RUE. FU: 09/12/16 was more awake, no more twitching noted by though still has poor verbal output and limited following requests no seizures noted , eeg done today results P - Current Medication List Current Medications: Active Medications Acetaminophen (Tylenol -) 650 mg PO DAILY PRN PRN Reason: PAIN Last Admin: 09/10/16 21:16 Dose: 650 mg Albuterol/Ipratropium (Duoneb -) 1 amp NEB Q4H PRN PRN Reason: SHORTNESS OF BREATH Amlodipine Besylate (Norvasc -) 5 mg PO DAILY [facility] Last Admin: 09/12/16 09:11 Dose: 5 mg Ampicillin Sodium/Sulbactam Sodium (Unasyn 1.5 Gm (Pre-Docked)) 1.5 gm IVPB Q8H -IV [facility] Aspirin (Asa -) 81 mg PO DAILY [facility] Last Admin: 09/12/16 09:11 Dose: 81 mg Atorvastatin Calcium (Lipitor -) 40 mg PO HS [facility] Last Admin: 09/11/16 22:21 Dose: 40 mg Piperacillin Sod/Tazobactam (Sod 2.25 gm/ Dextrose) 50 mls @ 100 mls/hr IVPB BID ON[facility] Insulin Aspart (Novolog Vial Sliding Scale -) 1 vial SQ ACHS [facility] PRN Reason: Protocol Last Admin: 09/12/16 17:21 Dose: Not Given Insulin Detemir (Levemir Vial) 12 units SQ ACBK [facility] Last Admin: 09/12/16 07:54 Dose: 12 units Isosorbide Mononitrate (Imdur -) 30 mg PO HS [facility] Last Admin: 09/11/16 22:22 Dose: 30 mg Losartan Potassium (Cozaar -) 50 mg PO DAILY [facility] Last Admin: 09/12/16 09:11 Dose: 50 mg Megestrol Acetate (Megace -) 40 mg PO DAILY [facility] Last Admin: 09/12/16 13:06 Dose: 40 mg Multivit/Ca Carb/B Cmplx/FA/Prenat (Nephro-Kimani -) 1 tablet PO DAILY [facility] Last Admin: 09/12/16 09:11 Dose: 1 tablet Nebivolol (Bystolic -) 5 mg PO BID [facility] Last Admin: 09/12/16 09:11 Dose: 5 mg Polyethylene Glycol (Miralax (For Daily Use) -) 17 gm PO DAILY [facility] Last Admin: 09/12/16 09:13 Dose: 17 gm Sevelamer Carbonate (Renvela Powder Packet -) 2.4 gm PO TIDCM [facility] Last Admin: 09/12/16 17:26 Dose: 2.4 gm - Objective Vital Signs: Vital Signs Temperature 97.7 F 09/12/16 18:00 Pulse Rate 59 L 09/12/16 18:00 Respiratory Rate 19 09/12/16 18:00 Blood Pressure 148/87 09/12/16 18:00 O2 Sat by Pulse Oximetry (%) 99 09/12/16 13:58 Labs: CBC, BMP 09/12/16 05:35 09/12/16 05:35 INR, PTT INR 1.01 (0.82-1.09) 09/07/16 11:33 Problem List - Problems (1) Acute respiratory failure with hypoxia and hypercapnia Code(s): J96.01 - ACUTE RESPIRATORY FAILURE WITH HYPOXIA J96.02 - ACUTE RESPIRATORY FAILURE WITH HYPERCAPNIA (2) Altered mental status Code(s): R41.82 - ALTERED MENTAL STATUS, UNSPECIFIED Qualifiers: Altered mental status type: transient alteration of awareness Qualified Code(s): R40.4 - Transient alteration of awareness (3) Dementia Code(s): F03.90 - UNSPECIFIED DEMENTIA WITHOUT BEHAVIORAL DISTURBANCE Qualifiers: Dementia type: Alzheimer's disease Alzheimer's disease onset: unspecified onset Dementia behavioral disturbance: without behavioral disturbance Qualified Code(s): G30.9 - Alzheimer's disease, unspecified; F02.80 - Dementia in other diseases classified elsewhere without behavioral disturbance (4) ESRD (end stage renal disease) on dialysis Code(s): N18.6 - END STAGE RENAL DISEASE Z99.2 - DEPENDENCE ON RENAL DIALYSIS (5) Seizure Code(s): R56.9 - UNSPECIFIED CONVULSIONS (6) Weakness Code(s): R53.1 - WEAKNESS Assessment/Plan 81 year old man PMhx of ESRD on HD -> PD (s/p 2 weeks ago), Hypertension, IDDM , Dementia (progressive over the past 2 years) who presented from home with malfunctioning PD catheter and admitted for replacement of the catheter/ worsening uremia s/p PD called for persistent lethargy likely multifactorial given progressive dementia in setting of uremic factors ( ammonia 2/ WNL) vs infectious somewhat better after dialysis/ABX severe distal neuropathy with wasting ABX on board, no meningeal signs FU EEG to ensure no subclinical seizures holding KEppra ( seizures have been poorly characterized, syncopal vs hypotensive events) agree to have DC'ed mirtazapine/sedatives. will follow Dr Prado [phone]
[2016-09-12] MEDS: ISOSORBIDE MONONITRATE 30 MG TAB.SR.24H (FP) PO SCH (22:06)
[2016-09-12] MEDS: ATORVASTATIN CA 40 MG TABLET (FP) PO SCH (22:06)
[2016-09-12] MEDS: ACETAMINOPHEN 325 MG TABLET (FP) PO PRN (22:06)
[2016-09-13] MEDS: ALBUTEROL SO4 2.5/IPRATROPIUM 0.5 INH SOL 3 ML VIAL.NEB. NEB PRN ×2 (06:15→22:02)
[2016-09-13] MEDS: INSULIN SLIDING SCALE (NOVOLOG) 1 VIAL SQ SCH ×4 (06:48→22:53)
[2016-09-13] MEDS: INSULIN DETEMIR 100 UNITS/ML MDV SQ SCH (08:02)
[2016-09-13] MEDS: SEVELAMER CARBONATE 2.4 GM POWDER PACKET PO SCH ×3 (08:06→17:35)
--- NOTE | 2016-09-13 08:39 | PN ---
Progress Note (short form) - Note Progress Note: Tm 101 Abd soft, catheter site clean and dry. Fluid aspirated - clear blood-tinged, easy flow Left AVF with distal thrill. Imp: No sign of peritonitis. Fistula with no obvious stenosis - will get Duplex to evaluate flow for stenosis. Problem List - Problems (1) ESRD (end stage renal disease) Code(s): N18.6 - END STAGE RENAL DISEASE (2) Peritoneal dialysis catheter dysfunction Code(s): T85.611A - BREAKDOWN OF INTRAPERITONEAL DIALYSIS CATHETER, INIT Qualifiers: Encounter type: initial encounter Qualified Code(s): T85.611A - Breakdown (mechanical) of intraperitoneal dialysis catheter, initial encounter
--- NOTE | 2016-09-13 09:31 | PN ---
Progress Note, Physician Chief Complaint: Had low grade fever History of Present Illness: On IV antibiotics for low grade fever - Current Medication List Current Medications: Active Medications Acetaminophen (Tylenol -) 650 mg PO DAILY PRN PRN Reason: PAIN Last Admin: 09/12/16 22:06 Dose: 650 mg Albuterol/Ipratropium (Duoneb -) 1 amp NEB Q4H PRN PRN Reason: SHORTNESS OF BREATH Last Admin: 09/13/16 06:15 Dose: 1 amp Amlodipine Besylate (Norvasc -) 5 mg PO DAILY [facility] Last Admin: 09/12/16 09:11 Dose: 5 mg Ampicillin Sodium/Sulbactam Sodium (Unasyn 1.5 Gm (Pre-Docked)) 1.5 gm IVPB Q8H -IV ONUR Aspirin (Asa -) 81 mg PO DAILY [facility] Last Admin: 09/12/16 09:11 Dose: 81 mg Atorvastatin Calcium (Lipitor -) 40 mg PO HS [facility] Last Admin: 09/12/16 22:06 Dose: 40 mg Piperacillin Sod/Tazobactam (Sod 2.25 gm/ Dextrose) 50 mls @ 100 mls/hr IVPB BID [facility] Insulin Aspart (Novolog Vial Sliding Scale -) 1 vial SQ ACHS [facility] PRN Reason: Protocol Last Admin: 09/13/16 06:48 Dose: Not Given Insulin Detemir (Levemir Vial) 12 units SQ ACBK [facility] Last Admin: 09/13/16 08:02 Dose: 12 units Isosorbide Mononitrate (Imdur -) 30 mg PO HS [facility] Last Admin: 09/12/16 22:06 Dose: 30 mg Losartan Potassium (Cozaar -) 50 mg PO DAILY [facility] Last Admin: 09/12/16 09:11 Dose: 50 mg Megestrol Acetate (Megace -) 40 mg PO DAILY [facility] Last Admin: 09/12/16 13:06 Dose: 40 mg Multivit/Ca Carb/B Cmplx/FA/Prenat (Nephro-[place] -) 1 tablet PO DAILY [facility] Last Admin: 09/12/16 09:11 Dose: 1 tablet Nebivolol (Bystolic -) 5 mg PO BID [facility] Last Admin: 09/12/16 22:06 Dose: 5 mg Polyethylene Glycol (Miralax (For Daily Use) -) 17 gm PO DAILY [facility] Last Admin: 09/12/16 09:13 Dose: 17 gm Sevelamer Carbonate (Renvela Powder Packet -) 2.4 gm PO TIDCM [facility] Last Admin: 09/13/16 08:06 Dose: 2.4 gm - Objective Vital Signs: Vital Signs Temperature 99.1 F 09/13/16 06:46 Pulse Rate 58 L 09/13/16 06:46 Respiratory Rate 20 09/13/16 06:46 Blood Pressure 115/42 09/13/16 06:46 O2 Sat by Pulse Oximetry (%) 99 09/12/16 22:57 Constitutional: Yes: Cachectic Eyes: Yes: WNL HENT: Yes: WNL Neck: Yes: WNL Cardiovascular: Yes: Regular Rate and Rhythm Respiratory: Yes: WNL Gastrointestinal: Yes: Normal Bowel Sounds ...Rectal Exam: Yes: Deferred Genitourinary: Yes: Anuria Musculoskeletal: Yes: Muscle Weakness Neurological: Yes: Lethargy Labs: CBC, BMP 09/12/16 05:35 09/12/16 05:35 INR, PTT INR 1.01 (0.82-1.09) 09/07/16 11:33 Assessment/Plan ID consult
[2016-09-13] MEDS: MEGESTROL ACETATE 40 MG TABLET PO SCH (10:00)
[2016-09-13] MEDS: POLYETHYLENE GLYCOL 3350 119 GM BTL PO SCH (10:00)
[2016-09-13] MEDS: VITAMIN B COMP W-C 1 EA TABLET PO SCH (10:00)
[2016-09-13] MEDS: ASPIRIN 81 MG CHEWABLE TABLETS PO SCH (10:00)
[2016-09-13] MEDS: LOSARTAN POTASSIUM 50 MG TABLET (FP) PO SCH (10:00)
[2016-09-13] MEDS: amLODIPine BESYLATE 5 MG TABLET (FP) PO SCH (10:00)
[2016-09-13] MEDS: NEBIVOLOL 5 MG TABLET (FP) PO SCH ×2 (10:00→22:52)
--- NOTE | 2016-09-13 10:38 | PN ---
Progress Note, Physician History of Present Illness: pulmonary lethargic,on nasal o2,-resp distress - Current Medication List Current Medications: Active Medications Acetaminophen (Tylenol -) 650 mg PO DAILY PRN PRN Reason: PAIN Last Admin: 09/12/16 22:06 Dose: 650 mg Albuterol/Ipratropium (Duoneb -) 1 amp NEB Q4H PRN PRN Reason: SHORTNESS OF BREATH Last Admin: 09/13/16 06:15 Dose: 1 amp Amlodipine Besylate (Norvasc -) 5 mg PO DAILY [facility] Last Admin: 09/13/16 10:00 Dose: 5 mg Ampicillin Sodium/Sulbactam Sodium (Unasyn 1.5 Gm (Pre-Docked)) 1.5 gm IVPB Q8H -IV ONUR Aspirin (Asa -) 81 mg PO DAILY [facility] Last Admin: 09/13/16 10:00 Dose: 81 mg Atorvastatin Calcium (Lipitor -) 40 mg PO HS [facility] Last Admin: 09/12/16 22:06 Dose: 40 mg Piperacillin Sod/Tazobactam (Sod 2.25 gm/ Dextrose) 50 mls @ 100 mls/hr IVPB BID [facility] Insulin Aspart (Novolog Vial Sliding Scale -) 1 vial SQ ACHS ONUR PRN Reason: Protocol Last Admin: 09/13/16 06:48 Dose: Not Given Insulin Detemir (Levemir Vial) 12 units SQ ACBK [facility] Last Admin: 09/13/16 08:02 Dose: 12 units Isosorbide Mononitrate (Imdur -) 30 mg PO HS [facility] Last Admin: 09/12/16 22:06 Dose: 30 mg Losartan Potassium (Cozaar -) 50 mg PO DAILY [facility] Last Admin: 09/13/16 10:00 Dose: 50 mg Megestrol Acetate (Megace -) 40 mg PO DAILY [facility] Last Admin: 09/13/16 10:00 Dose: 40 mg Multivit/Ca Carb/B Cmplx/FA/Prenat (Nephro-Kimani -) 1 tablet PO DAILY [facility] Last Admin: 09/13/16 10:00 Dose: 1 tablet Nebivolol (Bystolic -) 5 mg PO BID [facility] Last Admin: 09/13/16 10:00 Dose: 5 mg Polyethylene Glycol (Miralax (For Daily Use) -) 17 gm PO DAILY [facility] Last Admin: 09/13/16 10:00 Dose: 17 gm Sevelamer Carbonate (Renvela Powder Packet -) 2.4 gm PO TIDCM ONUR Last Admin: 09/13/16 08:06 Dose: 2.4 gm - Objective Vital Signs: Vital Signs Temperature 99.1 F 09/13/16 06:46 Pulse Rate 58 L 09/13/16 06:46 Respiratory Rate 20 09/13/16 06:46 Blood Pressure 115/42 09/13/16 06:46 O2 Sat by Pulse Oximetry (%) 99 09/12/16 22:57 Constitutional: Yes: Well Nourished, Other (lethargic) Eyes: Yes: WNL HENT: Yes: WNL Neck: Yes: WNL Cardiovascular: Yes: Regular Rate and Rhythm, S1, S2 Respiratory: Yes: Rales (bibasilar rales) Gastrointestinal: Yes: Normal Bowel Sounds, Soft Extremities: Yes: WNL Edema: No Labs: CBC, BMP 09/12/16 05:35 09/12/16 05:35 INR, PTT INR 1.01 (0.82-1.09) 09/07/16 11:33 Problem List - Problems (1) ESRD (end stage renal disease) Code(s): N18.6 - END STAGE RENAL DISEASE (2) Peritoneal dialysis catheter dysfunction Code(s): T85.611A - BREAKDOWN OF INTRAPERITONEAL DIALYSIS CATHETER, INIT Qualifiers: Encounter type: initial encounter Qualified Code(s): T85.611A - Breakdown (mechanical) of intraperitoneal dialysis catheter, initial encounter (3) Uremia Code(s): N19 - UNSPECIFIED KIDNEY FAILURE (4) Acute respiratory failure Code(s): J96.00 - ACUTE RESPIRATORY FAILURE, UNSP W HYPOXIA OR HYPERCAPNIA Qualifiers: Respiratory failure complication: hypoxia Qualified Code(s): J96.01 - Acute respiratory failure with hypoxia (5) Altered mental status Code(s): R41.82 - ALTERED MENTAL STATUS, UNSPECIFIED Qualifiers: Altered mental status type: transient alteration of awareness Qualified Code(s): R40.4 - Transient alteration of awareness (6) Anemia Code(s): D64.9 - ANEMIA, UNSPECIFIED Qualifiers: Other causes of anemia: chronic disease, kidney (7) Coronary artery disease Code(s): I25.10 - ATHSCL HEART DISEASE OF [place] CORONARY ARTERY W/O ANG PCTRS Qualifiers: Coronary Disease-Associated Artery/Lesion type: [place] artery [place] vs. transplanted heart: [place] heart Associated angina: without angina Qualified Code(s): I25.10 - Atherosclerotic heart disease of [place] coronary artery without angina pectoris (8) ESRD (end stage renal disease) on dialysis Code(s): N18.6 - END STAGE RENAL DISEASE Z99.2 - DEPENDENCE ON RENAL DIALYSIS (9) Hypertension Code(s): I10 - ESSENTIAL (PRIMARY) HYPERTENSION Qualifiers: Hypertension type: essential hypertension Qualified Code(s): I10 - Essential (primary) hypertension (10) Insulin dependent diabetes mellitus Code(s): E11.9 - TYPE 2 DIABETES MELLITUS WITHOUT COMPLICATIONS Z79.4 - SUCTION PLATE ROLLER HAND (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 Assessment/Plan IMP ACUTE HYPOXEMIC/HYPERCAPNEIC RESPIRATORY FAILURE ALTERED MENTAL STATUS ?TOXIC METABOLIC,MEDS ESRD ON HD CHF ASHD S/P CABG IDDM DEMENTIA PLAN BIPAP PRN SUPPLEMENTAL O2 INHALED BRONCHODILATORS CHEST X-RAY TODAY HD PER RENAL F/U ABGS DR OBREGON Problem List - Problems (1) ESRD (end stage renal disease) Code(s): N18.6 - END STAGE RENAL DISEASE (2) Peritoneal dialysis catheter dysfunction Code(s): T85.611A - BREAKDOWN OF INTRAPERITONEAL DIALYSIS CATHETER, INIT Qualifiers: Encounter type: initial encounter Qualified Code(s): T85.611A - Breakdown (mechanical) of intraperitoneal dialysis catheter, initial encounter (3) Uremia Code(s): N19 - UNSPECIFIED KIDNEY FAILURE (4) Acute respiratory failure Code(s): J96.00 - ACUTE RESPIRATORY FAILURE, UNSP W HYPOXIA OR HYPERCAPNIA Qualifiers: Respiratory failure complication: hypoxia Qualified Code(s): J96.01 - Acute respiratory failure with hypoxia (5) Altered mental status Code(s): R41.82 - ALTERED MENTAL STATUS, UNSPECIFIED Qualifiers: Altered mental status type: transient alteration of awareness Qualified Code(s): R40.4 - Transient alteration of awareness (6) Anemia Code(s): D64.9 - ANEMIA, UNSPECIFIED Qualifiers: Other causes of anemia: chronic disease, kidney (7) Coronary artery disease Code(s): I25.10 - ATHSCL HEART DISEASE OF [place] CORONARY ARTERY W/O ANG PCTRS Qualifiers: Coronary Disease-Associated Artery/Lesion type: [place] artery [place] vs. transplanted heart: [place] heart Associated angina: without angina Qualified Code(s): I25.10 - Atherosclerotic heart disease of [place] coronary artery without angina pectoris (8) ESRD (end stage renal disease) on dialysis Code(s): N18.6 - END STAGE RENAL DISEASE Z99.2 - DEPENDENCE ON RENAL DIALYSIS (9) Hypertension Code(s): I10 - ESSENTIAL (PRIMARY) HYPERTENSION Qualifiers: Hypertension type: essential hypertension Qualified Code(s): I10 - Essential (primary) hypertension (10) Insulin dependent diabetes mellitus Code(s): E11.9 - TYPE 2 DIABETES MELLITUS WITHOUT COMPLICATIONS Z79.4 - SUCTION PLATE ROLLER HAND (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
[2016-09-13 11:37] LABS: ARTERIAL BLD GAS O2 SATURATION 96.7 % (90-98.9); ARTERIAL BLOOD GAS HCO3 31.1 meq/L (22-26)
[2016-09-13 11:44] LABS: ART PUNCT SITE RIGHT BRACHIAL; LPM/O2% 4L; PT. ON O2? YES; TYPE OF O2 NASAL O2
--- NOTE | 2016-09-13 16:26 | CONSULT ---
Consult Consult Specialty:: infectious diseases Referred by:: Reason for Consultation:: Fever - History of Present Illness History of Present Illness: This is a 81 year old Gentleman with PMhx of ESRD on HD -> PD (started 2 weeks ago), Hypertension, IDDM, Dementia (progressive over the past 2 years) who presented from home with malfunctioning PD catheter (tip was not in the pelvis) and admitted for replacement of the catheter. Pt s/p laproscopic PD catheter replacement yesterday with lysis of adhesions. Pt noted to be lethargic in the ED and abg showed CO2 retention. CT head negative. BUN > 100. Pt s/p dialysis yesterday however continues to be lethargic. at the bedside. Pt not able to provide history. 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, Peripheral Neuropathy Cardio/Vascular: Yes: CAD Renal/: Yes: Renal Failure, Hemodialysis, Other (on diaylsis ) Psych: Yes: Psychosis - Past Surgical History Past Surgical History: Yes: AV Fistula/Graft, CABG - Alcohol/Substance Use Hx Alcohol Use: No - Smoking History Smoking history: Never smoked Have you smoked in the past 12 months: No Aproximately how many cigarettes per day: 0 If you are a former smoker, when did you quit?: 30YRS - Social History Usual Living Arrangement: With Spouse History of Recent Travel: No Home Medications - Allergies Allergies/Adverse Reactions: Allergies Allergy/AdvReac Type Severity Reaction Status Date / Time No Known Drug Allergies Allergy Verified 09/07/16 10:13 - Home Medications Home Medications: Ambulatory Orders Acetaminophen [Tylenol] 650 mg PO DAILY PRN 03/07/16 Aspirin [ASA -] 81 mg PO DAILY 03/07/16 Insulin Lispro [Humalog] 0 unit SQ ASDIR PRN 03/07/16 Megestrol Acetate 40 mg PO DAILY 03/07/16 Polyethylene Glycol 3350 [Miralax 119 gm Btl -] 17 gm PO DAILY 03/07/16 Sevelamer Carbonate [Renvela -] 2,400 mg PO TID 03/07/16 Sodium Polystyrene Sulfon/Sorb [Kionex 15 gm/60 ml Suspension] 30 gm PO ASDIR Vit B Cmplx 3/FA/Vit C/Biotin [Rissa-Kimani Rx Tablet] 1 each PO DAILY 03/07/16 Ipratropium/Albuterol Sulfate [Combivent Respimat Inhal [place]] 4 gm IH QID PRN 07/20/16 Mirtazapine [Remeron -] 7.5 mg PO HS 07/20/16 Atorvastatin Ca [Lipitor] 40 mg PO HS tablet 07/22/16 Isosorbide Mononitrate [Imdur -] 30 mg PO HS tab.sr.24h 07/22/16 Levetiracetam [Keppra -] 250 mg PO BID tablet 07/22/16 Losartan Potassium [Cozaar -] 50 mg PO DAILY tablet 07/22/16 Amlodipine Besylate 5 mg PO DAILY 09/07/16 Insulin Glargine,Hum.rec.anlog [Lantus (nf)] 26 units SQ ACBK 09/07/16 Nebivolol [Bystolic -] 5 mg PO BID 09/07/16 Review of Systems Unable to obtain ROS, reason: unable to obtain Physical Exam Vital Signs: Vital Signs Temperature 99.5 F 09/13/16 16:20 Pulse Rate 63 09/13/16 16:20 Respiratory Rate 20 09/13/16 16:20 Blood Pressure 152/36 09/13/16 16:20 O2 Sat by Pulse Oximetry (%) 96 09/13/16 11:30 Constitutional: Yes: Other Eyes: Yes: Conjunctiva Clear Neck: Yes: Supple Cardiovascular: Yes: Regular Rate and Rhythm Respiratory: Yes: Poor Air Entry Gastrointestinal: Yes: Normal Bowel Sounds, Soft, Other (catheter in place) Musculoskeletal: Yes: Other Extremities: Yes: Other Neurological: Yes: Other (non verbal non responsive) Labs: CBC, BMP 09/12/16 05:35 09/12/16 05:35 Imaging - Results Chest X-ray: Report Reviewed, Image Reviewed Cat Scan: Report Reviewed, Image Reviewed Assessment/Plan 81 year old Gentleman with PMhx of ESRD on HD -> PD (started 2 weeks ago), Hypertension, IDDM, Dementia (progressive over the past 2 years) who presented from home with malfunctioning PD catheter (tip was not in the pelvis) and admitted for replacement of the catheter. #Uremic Encephlopathy/AMS #Fevers #Hypercarbia/Hypxoia #Acute Anemia #PD catheter dysfunction s/p PD catheter exchanged #ESRD fever the fever either are coming from her av fistula or peritoneum,i am going to start patient on abx if the fever does not break then will have to do LP on the patinets plan continue monitoring will start on cefipime moniotr mental status neurology on case
--- NOTE | 2016-09-13 16:32 | PN ---
Progress Note, Physician History of Present Illness: 09/10/16 81 year old man, known to me, with PMhx of ESRD on HD -> PD (2 weeks ago ), Hypertension, IDDM, Dementia (progressive over the past 2 years) who presented from home --malfunctioning PD catheter (tip was not in the pelvis) and admitted for replacement of the catheter. s/p laproscopic PD catheter replacement with lysis of adhesions. Pt noted to be lethargic in the ED and abg --C02 retention. CT head negative. as per notices her been sleepy and more difficult arouse. Keppra started over last year for possible seizures - she is concerned if RX contributing to sedation. no clinical seizures noted. also states occasional twitch movement in the RUE. FU: 09/13/16 remains encephalopathic, sister by bedside spiking temps and team consider PD cath infection pt unable to endorse ESCAMILLA, etc no seizures noted , eeg done today results P - Current Medication List Current Medications: Active Medications Acetaminophen (Tylenol -) 650 mg PO DAILY PRN PRN Reason: PAIN Last Admin: 09/12/16 22:06 Dose: 650 mg Albuterol/Ipratropium (Duoneb -) 1 amp NEB Q4H PRN PRN Reason: SHORTNESS OF BREATH Last Admin: 09/13/16 06:15 Dose: 1 amp Amlodipine Besylate (Norvasc -) 5 mg PO DAILY ON[facility] Last Admin: 09/13/16 10:00 Dose: 5 mg Ampicillin Sodium/Sulbactam Sodium (Unasyn 1.5 Gm (Pre-Docked)) 1.5 gm IVPB Q8H -IV ONUR Aspirin (Asa -) 81 mg PO DAILY [facility] Last Admin: 09/13/16 10:00 Dose: 81 mg Atorvastatin Calcium (Lipitor -) 40 mg PO HS [facility] Last Admin: 09/12/16 22:06 Dose: 40 mg Piperacillin Sod/Tazobactam (Sod 2.25 gm/ Dextrose) 50 mls @ 100 mls/hr IVPB BID [facility] Insulin Aspart (Novolog Vial Sliding Scale -) 1 vial SQ ACHS ONUR PRN Reason: Protocol Last Admin: 09/13/16 11:58 Dose: 4 units Insulin Detemir (Levemir Vial) 12 units SQ ACBK [facility] Last Admin: 09/13/16 08:02 Dose: 12 units Isosorbide Mononitrate (Imdur -) 30 mg PO HS [facility] Last Admin: 09/12/16 22:06 Dose: 30 mg Losartan Potassium (Cozaar -) 50 mg PO DAILY [facility] Last Admin: 09/13/16 10:00 Dose: 50 mg Megestrol Acetate (Megace -) 40 mg PO DAILY [facility] Last Admin: 09/13/16 10:00 Dose: 40 mg Multivit/Ca Carb/B Cmplx/FA/Prenat (Nephro-Kimani -) 1 tablet PO DAILY [facility] Last Admin: 09/13/16 10:00 Dose: 1 tablet Nebivolol (Bystolic -) 5 mg PO BID [facility] Last Admin: 09/13/16 10:00 Dose: 5 mg Polyethylene Glycol (Miralax (For Daily Use) -) 17 gm PO DAILY [facility] Last Admin: 09/13/16 10:00 Dose: 17 gm Sevelamer Carbonate (Renvela Powder Packet -) 2.4 gm PO TIDCM [facility] Last Admin: 09/13/16 11:57 Dose: 2.4 gm - Objective Vital Signs: Vital Signs Temperature 99.5 F 09/13/16 16:20 Pulse Rate 63 09/13/16 16:20 Respiratory Rate 20 09/13/16 16:20 Blood Pressure 152/36 09/13/16 16:20 O2 Sat by Pulse Oximetry (%) 96 09/13/16 11:30 Labs: CBC, BMP 09/12/16 05:35 09/12/16 05:35 INR, PTT INR 1.01 (0.82-1.09) 09/07/16 11:33 Problem List - Problems (1) Acute respiratory failure with hypoxia and hypercapnia Code(s): J96.01 - ACUTE RESPIRATORY FAILURE WITH HYPOXIA J96.02 - ACUTE RESPIRATORY FAILURE WITH HYPERCAPNIA (2) Altered mental status Code(s): R41.82 - ALTERED MENTAL STATUS, UNSPECIFIED Qualifiers: Altered mental status type: transient alteration of awareness Qualified Code(s): R40.4 - Transient alteration of awareness (3) Dementia Code(s): F03.90 - UNSPECIFIED DEMENTIA WITHOUT BEHAVIORAL DISTURBANCE Qualifiers: Dementia type: Alzheimer's disease Alzheimer's disease onset: unspecified onset Dementia behavioral disturbance: without behavioral disturbance Qualified Code(s): G30.9 - Alzheimer's disease, unspecified; F02.80 - Dementia in other diseases classified elsewhere without behavioral disturbance (4) ESRD (end stage renal disease) on dialysis Code(s): N18.6 - END STAGE RENAL DISEASE Z99.2 - DEPENDENCE ON RENAL DIALYSIS (5) Seizure Code(s): R56.9 - UNSPECIFIED CONVULSIONS (6) Weakness Code(s): R53.1 - WEAKNESS Assessment/Plan 81 year old man PMhx of ESRD on HD -> PD (s/p 2 weeks ago), Hypertension, IDDM , Dementia (progressive over the past 2 years) who presented from home with malfunctioning PD catheter and admitted for replacement of the catheter/ worsening uremia s/p PD called for persistent lethargy 1) likely multifactorial given progressive dementia in setting of uremic factors (ammonia 2/ WNL) vs infectious spiking temps still , ? peritoneal , ABX being adjusted and ID on board --if no clear source identified , will consider LP 2) severe distal neuropathy with wasting , with rigidity and occ myoclonus 3) FU EEG to ensure no subclinical seizures holding KEppra ( seizures have been poorly characterized, syncopal vs hypotensive events) will follow Dr Prado [phone]
[2016-09-13] MEDS ORDERED: CEFTAZIDIME PENTAHYDRATE 1 GM in DEXTROSE 5%-WATER - 100 ML IVPB ONE (16:45)
--- NOTE | 2016-09-13 17:14 | PN ---
Progress Note (short form) - Note Progress Note: Renal Follow up for ESRD on HD Pt seen and examined at the bedside lethargic opens eyes for a few seconds family at the bedside Vital Signs Temperature 99.5 F 09/13/16 16:20 Pulse Rate 63 09/13/16 16:20 Respiratory Rate 20 09/13/16 16:20 Blood Pressure 152/36 09/13/16 16:20 O2 Sat by Pulse Oximetry (%) 96 09/13/16 11:30 Intake & Output 09/10/16 09/11/16 09/12/16 09/13/16 23:59 23:59 23:59 23:59 Intake Total 1000 400 Output Total 0 Balance 1000 400 Weight 141 lb 139 lb 3.2 oz 142 lb 9.6 oz Gen: awake and alert HEENT: NC/AT, No JVD CVS: RRR, No M/R Lungs: CTA Abd: soft NT/ND. Abd dressing pad in place. Ext: No edema, clubbing or cyanosis CBC, BMP 09/12/16 05:35 09/12/16 05:35 Current Medications Acetaminophen (Tylenol -) 650 mg PO DAILY PRN PRN Reason: PAIN Last Admin: 09/12/16 22:06 Dose: 650 mg Albuterol/Ipratropium (Duoneb -) 1 amp NEB Q4H PRN PRN Reason: SHORTNESS OF BREATH Last Admin: 09/13/16 06:15 Dose: 1 amp Amlodipine Besylate (Norvasc -) 5 mg PO DAILY [facility] Last Admin: 09/13/16 10:00 Dose: 5 mg Aspirin (Asa -) 81 mg PO DAILY [facility] Last Admin: 09/13/16 10:00 Dose: 81 mg Atorvastatin Calcium (Lipitor -) 40 mg PO HS [facility] Last Admin: 09/12/16 22:06 Dose: 40 mg Ceftazidime 1 gm/ Dextrose 100 mls @ 200 mls/hr IVPB ONCE ONE Stop: 09/13/16 17:14 Ceftazidime 1 gm/ Dextrose 100 mls @ 200 mls/hr IVPB [email or web address] ONUR Insulin Aspart (Novolog Vial Sliding Scale -) 1 vial SQ ACHS ONUR PRN Reason: Protocol Last Admin: 09/13/16 11:58 Dose: 4 units Insulin Detemir (Levemir Vial) 12 units SQ ACBK [facility] Last Admin: 09/13/16 08:02 Dose: 12 units Isosorbide Mononitrate (Imdur -) 30 mg PO HS [facility] Last Admin: 09/12/16 22:06 Dose: 30 mg Losartan Potassium (Cozaar -) 50 mg PO DAILY [facility] Last Admin: 09/13/16 10:00 Dose: 50 mg Megestrol Acetate (Megace -) 40 mg PO DAILY [facility] Last Admin: 09/13/16 10:00 Dose: 40 mg Multivit/Ca Carb/B Cmplx/FA/Prenat (Nephro-Kimani -) 1 tablet PO DAILY [facility] Last Admin: 09/13/16 10:00 Dose: 1 tablet Nebivolol (Bystolic -) 5 mg PO BID [facility] Last Admin: 09/13/16 10:00 Dose: 5 mg Polyethylene Glycol (Miralax (For Daily Use) -) 17 gm PO DAILY [facility] Last Admin: 09/13/16 10:00 Dose: 17 gm Sevelamer Carbonate (Renvela Powder Packet -) 2.4 gm PO TIDCM [facility] Last Admin: 09/13/16 11:57 Dose: 2.4 gm A/P 81 year old Gentleman with PMhx of ESRD on HD -> PD (started 2 weeks ago), Hypertension, IDDM, Dementia (progressive over the past 2 years) who presented from home with malfunctioning PD catheter (tip was not in the pelvis) and admitted for replacement of the catheter. #Uremic Encephlopathy/AMS Continue BIPAP ast night EEG as per neurology holding all sedating medications #Fevers spiked fever again last night continue Abx as per ID #Hypercarbia/Hypxoia Continue BIPAP and supplemental O2 as per pulmonary #Acute Anemia ? Source of blood loss hgb stable s/p transfusion Abd Ct w/o evidence of collection/hematoma #PD catheter dysfunction s/p PD catheter exchanged #ESRD For dialysis tomorrow doppler of AVF shows outflow stenosis Vascular follow up Tayo Pederson DO
[2016-09-13] MEDS: ATORVASTATIN CA 40 MG TABLET (FP) PO SCH (22:52)
[2016-09-13] MEDS: ISOSORBIDE MONONITRATE 30 MG TAB.SR.24H (FP) PO SCH (22:52)
[2016-09-14] MEDS: SEVELAMER CARBONATE 2.4 GM POWDER PACKET PO SCH ×3 (08:39→18:10)
[2016-09-14] MEDS ORDERED: VANCOMYCIN 1 GRAM (PRE-DOCKED) 250 ML IVPB ONE ×2 (09:00→22:15)
--- NOTE | 2016-09-14 09:34 | PN ---
Progress Note, Physician History of Present Illness: Scheduled repair of AV graft - Current Medication List Current Medications: Active Medications Acetaminophen (Tylenol -) 650 mg PO DAILY PRN PRN Reason: PAIN Last Admin: 09/12/16 22:06 Dose: 650 mg Albuterol/Ipratropium (Duoneb -) 1 amp NEB Q4H PRN PRN Reason: SHORTNESS OF BREATH Last Admin: 09/13/16 22:02 Dose: 1 amp Amlodipine Besylate (Norvasc -) 5 mg PO DAILY [facility] Last Admin: 09/13/16 10:00 Dose: 5 mg Aspirin (Asa -) 81 mg PO DAILY [facility] Last Admin: 09/13/16 10:00 Dose: 81 mg Atorvastatin Calcium (Lipitor -) 40 mg PO HS [facility] Last Admin: 09/13/16 22:52 Dose: 40 mg Ceftazidime 1 gm/ Dextrose 100 mls @ 200 mls/hr IVPB [email or web address] ONUR Vancomycin HCl (Vancomycin (Pre-Docked)) 250 mls @ 250 mls/hr IVPB ONCE ONE Stop: 09/14/16 09:59 Insulin Aspart (Novolog Vial Sliding Scale -) 1 vial SQ ACHS [facility] PRN Reason: Protocol Last Admin: 09/13/16 22:53 Dose: Not Given Insulin Detemir (Levemir Vial) 12 units SQ ACBK [facility] Last Admin: 09/13/16 08:02 Dose: 12 units Isosorbide Mononitrate (Imdur -) 30 mg PO HS [facility] Last Admin: 09/13/16 22:52 Dose: 30 mg Losartan Potassium (Cozaar -) 50 mg PO DAILY [facility] Last Admin: 09/13/16 10:00 Dose: 50 mg Megestrol Acetate (Megace -) 40 mg PO DAILY [facility] Last Admin: 09/13/16 10:00 Dose: 40 mg Multivit/Ca Carb/B Cmplx/FA/Prenat (Nephro-Kimani -) 1 tablet PO DAILY [facility] Last Admin: 09/13/16 10:00 Dose: 1 tablet Nebivolol (Bystolic -) 5 mg PO BID [facility] Last Admin: 09/13/16 22:52 Dose: 5 mg Polyethylene Glycol (Miralax (For Daily Use) -) 17 gm PO DAILY [facility] Last Admin: 09/13/16 10:00 Dose: 17 gm Sevelamer Carbonate (Renvela Powder Packet -) 2.4 gm PO TIDCM [facility] Last Admin: 09/13/16 17:35 Dose: 2.4 gm - Objective Vital Signs: Vital Signs Temperature 99 F 09/14/16 06:34 Pulse Rate 64 09/14/16 06:34 Respiratory Rate 20 09/14/16 06:34 Blood Pressure 139/66 09/14/16 06:34 O2 Sat by Pulse Oximetry (%) 100 09/13/16 18:55 Constitutional: Yes: Cachectic Eyes: Yes: WNL HENT: Yes: WNL Neck: Yes: WNL Respiratory: Yes: Regular Gastrointestinal: Yes: WNL Genitourinary: Yes: Anuria Edema: No Neurological: Yes: Weakness Labs: CBC, BMP 09/12/16 05:35 09/12/16 05:35 INR, PTT INR 1.01 (0.82-1.09) 09/07/16 11:33
[2016-09-14] MEDS: ALBUTEROL SO4 2.5/IPRATROPIUM 0.5 INH SOL 3 ML VIAL.NEB. NEB PRN (10:25)
[2016-09-14] MEDS ORDERED: PT OWN MED DRAWER 7, Y5N ONE (11:17)
[2016-09-14] MEDS: INSULIN DETEMIR 100 UNITS/ML MDV SQ SCH (11:38)
[2016-09-14] MEDS: INSULIN SLIDING SCALE (NOVOLOG) 1 VIAL SQ SCH ×3 (11:39→22:00)
[2016-09-14] MEDS: NEBIVOLOL 5 MG TABLET (FP) PO SCH ×2 (11:40→23:43)
[2016-09-14] MEDS: ASPIRIN 81 MG CHEWABLE TABLETS PO SCH (11:40)
[2016-09-14] MEDS: LOSARTAN POTASSIUM 50 MG TABLET (FP) PO SCH (11:41)
[2016-09-14] MEDS: POLYETHYLENE GLYCOL 3350 119 GM BTL PO SCH (11:41)
[2016-09-14] MEDS: MEGESTROL ACETATE 40 MG TABLET PO SCH (11:41)
[2016-09-14] MEDS: VITAMIN B COMP W-C 1 EA TABLET PO SCH (11:41)
[2016-09-14] MEDS: amLODIPine BESYLATE 5 MG TABLET (FP) PO SCH (11:41)
--- NOTE | 2016-09-14 11:50 | PN ---
Progress Note, Physician History of Present Illness: pulmonary lethargic,-resp distress - Current Medication List Current Medications: Active Medications Acetaminophen (Tylenol -) 650 mg PO DAILY PRN PRN Reason: PAIN Last Admin: 09/12/16 22:06 Dose: 650 mg Albuterol/Ipratropium (Duoneb -) 1 amp NEB Q4H PRN PRN Reason: SHORTNESS OF BREATH Last Admin: 09/14/16 10:25 Dose: 1 amp Amlodipine Besylate (Norvasc -) 5 mg PO DAILY [facility] Last Admin: 09/14/16 11:41 Dose: 5 mg Aspirin (Asa -) 81 mg PO DAILY [facility] Last Admin: 09/14/16 11:40 Dose: 81 mg Atorvastatin Calcium (Lipitor -) 40 mg PO HS [facility] Last Admin: 09/13/16 22:52 Dose: 40 mg Ceftazidime 1 gm/ Dextrose 100 mls @ 200 mls/hr IVPB [email or web address] ON[facility] Insulin Aspart (Novolog Vial Sliding Scale -) 1 vial SQ ACHS [facility] PRN Reason: Protocol Last Admin: 09/14/16 11:39 Dose: Not Given Insulin Detemir (Levemir Vial) 12 units SQ ACBK [facility] Last Admin: 09/14/16 11:38 Dose: Not Given Isosorbide Mononitrate (Imdur -) 30 mg PO HS [facility] Last Admin: 09/13/16 22:52 Dose: 30 mg Losartan Potassium (Cozaar -) 50 mg PO DAILY [facility] Last Admin: 09/14/16 11:41 Dose: Not Given Megestrol Acetate (Megace -) 40 mg PO DAILY [facility] Last Admin: 09/14/16 11:41 Dose: 40 mg Multivit/Ca Carb/B Cmplx/FA/Prenat (Nephro-Kimani -) 1 tablet PO DAILY [facility] Last Admin: 09/14/16 11:41 Dose: 1 tablet Nebivolol (Bystolic -) 5 mg PO BID [facility] Last Admin: 09/14/16 11:40 Dose: 5 mg Polyethylene Glycol (Miralax (For Daily Use) -) 17 gm PO DAILY [facility] Last Admin: 09/14/16 11:41 Dose: Not Given Sevelamer Carbonate (Renvela Powder Packet -) 2.4 gm PO TIDCM [facility] Last Admin: 09/14/16 11:40 Dose: Not Given - Objective Vital Signs: Vital Signs Temperature 99 F 09/14/16 06:34 Pulse Rate 66 09/14/16 10:25 Respiratory Rate 20 09/14/16 06:34 Blood Pressure 139/66 09/14/16 06:34 O2 Sat by Pulse Oximetry (%) 97 09/14/16 10:25 Constitutional: Yes: Thin, Other (lethargic) Eyes: Yes: WNL HENT: Yes: WNL Neck: Yes: Supple Cardiovascular: Yes: Pulse Irregular, S1, S2 Respiratory: Yes: Rales (scattered rhonchi) Gastrointestinal: Yes: Normal Bowel Sounds, Soft Extremities: Yes: WNL Edema: No Labs: CBC, BMP 09/12/16 05:35 09/12/16 05:35 INR, PTT INR 1.01 (0.82-1.09) 09/07/16 11:33 Laboratory Tests 09/13/16 11:39 ABG pH 7.40 ABG pCO2 at Pt Temp 51.6 H ABG pO2 at Pt Temp 116.0 H D ABG HCO3 31.1 H ABG O2 Sat (Measured) 96.7 O2 Delivery Device Nasal o2 Oxygen Flow Rate 4l - ....Imaging Chest X-ray: Report Reviewed, Image Reviewed Problem List - Problems (1) ESRD (end stage renal disease) Code(s): N18.6 - END STAGE RENAL DISEASE (2) Peritoneal dialysis catheter dysfunction Code(s): T85.611A - BREAKDOWN OF INTRAPERITONEAL DIALYSIS CATHETER, INIT Qualifiers: Encounter type: initial encounter Qualified Code(s): T85.611A - Breakdown (mechanical) of intraperitoneal dialysis catheter, initial encounter (3) Uremia Code(s): N19 - UNSPECIFIED KIDNEY FAILURE (4) Acute respiratory failure Code(s): J96.00 - ACUTE RESPIRATORY FAILURE, UNSP W HYPOXIA OR HYPERCAPNIA Qualifiers: Respiratory failure complication: hypoxia Qualified Code(s): J96.01 - Acute respiratory failure with hypoxia (5) Altered mental status Code(s): R41.82 - ALTERED MENTAL STATUS, UNSPECIFIED Qualifiers: Altered mental status type: transient alteration of awareness Qualified Code(s): R40.4 - Transient alteration of awareness (6) Anemia Code(s): D64.9 - ANEMIA, UNSPECIFIED Qualifiers: Other causes of anemia: chronic disease, kidney (7) Coronary artery disease Code(s): I25.10 - ATHSCL HEART DISEASE OF [place] CORONARY ARTERY W/O ANG PCTRS Qualifiers: Coronary Disease-Associated Artery/Lesion type: [place] artery [place] vs. transplanted heart: [place] heart Associated angina: without angina Qualified Code(s): I25.10 - Atherosclerotic heart disease of [place] coronary artery without angina pectoris (8) ESRD (end stage renal disease) on dialysis Code(s): N18.6 - END STAGE RENAL DISEASE Z99.2 - DEPENDENCE ON RENAL DIALYSIS (9) Hypertension Code(s): I10 - ESSENTIAL (PRIMARY) HYPERTENSION Qualifiers: Hypertension type: essential hypertension Qualified Code(s): I10 - Essential (primary) hypertension (10) Insulin dependent diabetes mellitus Code(s): E11.9 - TYPE 2 DIABETES MELLITUS WITHOUT COMPLICATIONS Z79.4 - [facility] (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 Assessment/Plan IMP ACUTE HYPOXEMIC/HYPERCAPNEIC RESPIRATORY FAILURE ALTERED MENTAL STATUS ?TOXIC METABOLIC,MEDS ESRD ON HD CHF ASHD S/P CABG IDDM DEMENTIA PLAN BIPAP PRN SUPPLEMENTAL O2 INHALED BRONCHODILATORS HD PER RENAL ECHO DR OBREGON Problem List - Problems (1) ESRD (end stage renal disease) Code(s): N18.6 - END STAGE RENAL DISEASE (2) Peritoneal dialysis catheter dysfunction Code(s): T85.611A - BREAKDOWN OF INTRAPERITONEAL DIALYSIS CATHETER, INIT Qualifiers: Encounter type: initial encounter Qualified Code(s): T85.611A - Breakdown (mechanical) of intraperitoneal dialysis catheter, initial encounter (3) Uremia Code(s): N19 - UNSPECIFIED KIDNEY FAILURE (4) Acute respiratory failure Code(s): J96.00 - ACUTE RESPIRATORY FAILURE, UNSP W HYPOXIA OR HYPERCAPNIA Qualifiers: Respiratory failure complication: hypoxia Qualified Code(s): J96.01 - Acute respiratory failure with hypoxia (5) Altered mental status Code(s): R41.82 - ALTERED MENTAL STATUS, UNSPECIFIED Qualifiers: Altered mental status type: transient alteration of awareness Qualified Code(s): R40.4 - Transient alteration of awareness (6) Anemia Code(s): D64.9 - ANEMIA, UNSPECIFIED Qualifiers: Other causes of anemia: chronic disease, kidney (7) Coronary artery disease Code(s): I25.10 - ATHSCL HEART DISEASE OF [place] CORONARY ARTERY W/O ANG PCTRS Qualifiers: Coronary Disease-Associated Artery/Lesion type: [place] artery [place] vs. transplanted heart: [place] heart Associated angina: without angina Qualified Code(s): I25.10 - Atherosclerotic heart disease of [place] coronary artery without angina pectoris (8) ESRD (end stage renal disease) on dialysis Code(s): N18.6 - END STAGE RENAL DISEASE Z99.2 - DEPENDENCE ON RENAL DIALYSIS (9) Hypertension Code(s): I10 - ESSENTIAL (PRIMARY) HYPERTENSION Qualifiers: Hypertension type: essential hypertension Qualified Code(s): I10 - Essential (primary) hypertension (10) Insulin dependent diabetes mellitus Code(s): E11.9 - TYPE 2 DIABETES MELLITUS WITHOUT COMPLICATIONS Z79.4 - [employer] (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
[2016-09-14] MEDS ORDERED: CEFTAZIDIME PENTAHYDRATE 1 GM in DEXTROSE 5%-WATER - 100 ML IVPB SCH (12:00)
--- NOTE | 2016-09-14 12:07 | PN ---
Progress Note (short form) - Note Progress Note: Renal Follow up for ESRD on HD Pt seen and examined at the bedside not opening eyes or following commands no overnight events NPO for fistulagram later today Vital Signs Temperature 99 F 09/14/16 06:34 Pulse Rate 66 09/14/16 10:25 Respiratory Rate 20 09/14/16 06:34 Blood Pressure 139/66 09/14/16 06:34 O2 Sat by Pulse Oximetry (%) 97 09/14/16 10:25 Intake & Output 09/11/16 09/12/16 09/13/16 09/14/16 23:59 23:59 23:59 23:59 Intake Total 400 Balance 400 Weight 139 lb 3.2 oz 142 lb 9.6 oz Gen: sleeping/lethargic HEENT: NC/AT, No JVD CVS: RRR, No M/R Lungs: CTA Abd: soft NT/ND. Abd dressing pad in place. Ext: No edema, clubbing or cyanosis CBC, BMP 09/12/16 05:35 09/12/16 05:35 Current Medications Acetaminophen (Tylenol -) 650 mg PO DAILY PRN PRN Reason: PAIN Last Admin: 09/12/16 22:06 Dose: 650 mg Albuterol/Ipratropium (Duoneb -) 1 amp NEB Q4H PRN PRN Reason: SHORTNESS OF BREATH Last Admin: 09/14/16 10:25 Dose: 1 amp Amlodipine Besylate (Norvasc -) 5 mg PO DAILY [facility] Last Admin: 09/14/16 11:41 Dose: 5 mg Aspirin (Asa -) 81 mg PO DAILY [facility] Last Admin: 09/14/16 11:40 Dose: 81 mg Atorvastatin Calcium (Lipitor -) 40 mg PO HS [facility] Last Admin: 09/13/16 22:52 Dose: 40 mg Ceftazidime 1 gm/ Dextrose 100 mls @ 200 mls/hr IVPB [id number] [facility] Insulin Aspart (Novolog Vial Sliding Scale -) 1 vial SQ ACHS [facility] PRN Reason: Protocol Last Admin: 09/14/16 11:39 Dose: Not Given Insulin Detemir (Levemir Vial) 12 units SQ ACBK [facility] Last Admin: 09/14/16 11:38 Dose: Not Given Isosorbide Mononitrate (Imdur -) 30 mg PO HS [facility] Last Admin: 09/13/16 22:52 Dose: 30 mg Losartan Potassium (Cozaar -) 50 mg PO DAILY [facility] Last Admin: 09/14/16 11:41 Dose: Not Given Megestrol Acetate (Megace -) 40 mg PO DAILY [facility] Last Admin: 09/14/16 11:41 Dose: 40 mg Multivit/Ca Carb/B Cmplx/FA/Prenat (Nephro-Kimani -) 1 tablet PO DAILY [facility] Last Admin: 09/14/16 11:41 Dose: 1 tablet Nebivolol (Bystolic -) 5 mg PO BID [facility] Last Admin: 09/14/16 11:40 Dose: 5 mg Polyethylene Glycol (Miralax (For Daily Use) -) 17 gm PO DAILY [facility] Last Admin: 09/14/16 11:41 Dose: Not Given Sevelamer Carbonate (Renvela Powder Packet -) 2.4 gm PO TIDCM [facility] Last Admin: 09/14/16 11:40 Dose: Not Given A/P 81 year old Gentleman with PMhx of ESRD on HD -> PD (started 2 weeks ago), Hypertension, IDDM, Dementia (progressive over the past 2 years) who presented from home with malfunctioning PD catheter (tip was not in the pelvis) and admitted for replacement of the catheter. #Uremic Encephlopathy/AMS MS remains poor continue BIPAP as needed (ABGs have improved) f/u neurology recs ? recirculation -> will have stenosis in AVF addressed today by tyrese sx, hopefully will get better clearance with HD following #Fevers spiked fever again last night continue Abx as per ID #Hypercarbia/Hypxoia Continue BIPAP and supplemental O2 as per pulmonary #Acute Anemia hgb stable s/p transfusion Abd Ct w/o evidence of collection/hematoma #PD catheter dysfunction s/p PD catheter exchanged #ESRD HD today goal UF is 1.5-2L Tayo Pederson DO
--- NOTE | 2016-09-14 16:48 | PN ---
Progress Note, Physician History of Present Illness: patient looking slightly better no complaints av grafe rvision done declotted - Current Medication List Current Medications: Active Medications Acetaminophen (Tylenol -) 650 mg PO DAILY PRN PRN Reason: PAIN Last Admin: 09/12/16 22:06 Dose: 650 mg Amlodipine Besylate (Norvasc -) 5 mg PO DAILY [facility] Last Admin: 09/14/16 11:41 Dose: 5 mg Aspirin (Asa -) 81 mg PO DAILY [facility] Last Admin: 09/14/16 11:40 Dose: 81 mg Atorvastatin Calcium (Lipitor -) 40 mg PO HS [facility] Last Admin: 09/13/16 22:52 Dose: 40 mg Ceftazidime 1 gm/ Dextrose 100 mls @ 200 mls/hr IVPB [email or web address] [facility] Insulin Aspart (Novolog Vial Sliding Scale -) 1 vial SQ ACHS [facility] PRN Reason: Protocol Last Admin: 09/14/16 11:39 Dose: Not Given Insulin Detemir (Levemir Vial) 12 units SQ ACBK [facility] Last Admin: 09/14/16 11:38 Dose: Not Given Isosorbide Mononitrate (Imdur -) 30 mg PO HS [facility] Last Admin: 09/13/16 22:52 Dose: 30 mg Losartan Potassium (Cozaar -) 50 mg PO DAILY [facility] Last Admin: 09/14/16 11:41 Dose: Not Given Megestrol Acetate (Megace -) 40 mg PO DAILY [facility] Last Admin: 09/14/16 11:41 Dose: 40 mg Multivit/Ca Carb/B Cmplx/FA/Prenat (Nephro-Kimani -) 1 tablet PO DAILY [facility] Last Admin: 09/14/16 11:41 Dose: 1 tablet Nebivolol (Bystolic -) 5 mg PO BID [facility] Last Admin: 09/14/16 11:40 Dose: 5 mg Polyethylene Glycol (Miralax (For Daily Use) -) 17 gm PO DAILY [facility] Last Admin: 09/14/16 11:41 Dose: Not Given Sevelamer Carbonate (Renvela Powder Packet -) 2.4 gm PO TIDCM [facility] Last Admin: 09/14/16 11:40 Dose: Not Given - Objective Vital Signs: Vital Signs Temperature 99.3 F 09/14/16 15:37 Pulse Rate 74 09/14/16 15:37 Respiratory Rate 22 09/14/16 15:37 Blood Pressure 173/86 09/14/16 15:37 O2 Sat by Pulse Oximetry (%) 97 09/14/16 10:25 Constitutional: Yes: No Distress, Calm Neck: Yes: Supple Cardiovascular: Yes: Regular Rate and Rhythm Respiratory: Yes: Regular Gastrointestinal: Yes: Normal Bowel Sounds, Soft, Other Labs: CBC, BMP 09/12/16 05:35 09/12/16 05:35 INR, PTT INR 1.01 (0.82-1.09) 09/07/16 11:33 Assessment/Plan 81 year old Gentleman with PMhx of ESRD on HD -> PD (started 2 weeks ago), Hypertension, IDDM, Dementia (progressive over the past 2 years) who presented from home with malfunctioning PD catheter (tip was not in the pelvis) and admitted for replacement of the catheter. #Uremic Encephlopathy/AMS #Fevers #Hypercarbia/Hypxoia #Acute Anemia #PD catheter dysfunction s/p PD catheter exchanged #ESRD fever the fever either are coming from her av fistula or peritoneum,i am going to start patient on abx if the fever does not break then will have to do LP on the patinets plan continue monitoring continue abx as planned will consider stopping vanco
[2016-09-14] MEDS ORDERED: LIDOCAINE HCL 1%, 10 MG/ML (20ML VIAL) IJ ONE (17:47)
--- NOTE | 2016-09-14 18:14 | OP ---
Operative Note - Note: Operative Date: 09/14/16 Pre-Operative Diagnosis: Malfunction AV fistula Operation: Venoplasty AV fistula. Findings: Distal 5 cm of fistula narrowed 80%. Post-Operative Diagnosis: Same as Pre-op Surgeon: Hu Tapia Anesthesiologist/SUPERVISOR IRRIGATION: Janet Cuello Anesthesia: Fractional
[2016-09-14] MEDS ORDERED: ONDANSETRON 4 MG/2 ML VIAL IVPUSH PRN (18:22)
[2016-09-14] MEDS ORDERED: ACETAMINOPHEN 325 MG TABLET (FP) PO PRN (19:01)
--- NOTE | 2016-09-14 20:17 | PN ---
Progress Note, Physician History of Present Illness: 09/10/16 81 year old man, known to me, with PMhx of ESRD on HD -> PD (2 weeks ago ), Hypertension, IDDM, Dementia (progressive over the past 2 years) who presented from home --malfunctioning PD catheter (tip was not in the pelvis) and admitted for replacement of the catheter. s/p laproscopic PD catheter replacement with lysis of adhesions. Pt noted to be lethargic in the ED and abg --C02 retention. CT head negative. as per notices her been sleepy and more difficult arouse. Keppra started over last year for possible seizures - she is concerned if RX contributing to sedation. no clinical seizures noted. also states occasional twitch movement in the RUE. FU: 09/14/16 musch more awake today, close to baseline on dialysis during exam - Current Medication List Current Medications: Active Medications Acetaminophen (Tylenol -) 650 mg PO DAILY PRN PRN Reason: PAIN Amlodipine Besylate (Norvasc -) 5 mg PO DAILY [facility] Aspirin (Asa -) 81 mg PO DAILY [facility] Atorvastatin Calcium (Lipitor -) 40 mg PO HS [facility] Ceftazidime 1 gm/ Dextrose 100 mls @ 200 mls/hr IVPB [email or web address] ONUR Vancomycin HCl (Vancomycin (Pre-Docked)) 250 mls @ 250 mls/hr IVPB ONCE ONE Stop: 09/14/16 20:00 Insulin Aspart (Novolog Vial Sliding Scale -) 1 vial SQ ACHS [facility] PRN Reason: Protocol Insulin Detemir (Levemir Vial) 12 units SQ ACBK [facility] Isosorbide Mononitrate (Imdur -) 30 mg PO HS [facility] Losartan Potassium (Cozaar -) 50 mg PO DAILY [facility] Megestrol Acetate (Megace -) 40 mg PO DAILY [facility] Multivit/Ca Carb/B Cmplx/FA/Prenat (Nephro-Kimani -) 1 tablet PO DAILY [facility] Nebivolol (Bystolic -) 5 mg PO BID ON[facility] Ondansetron HCl (Zofran Injection) 4 mg IVPUSH Q6H PRN PRN Reason: NAUSEA AND/OR VOMITING Stop: 09/15/16 00:23 Polyethylene Glycol (Miralax (For Daily Use) -) 17 gm PO DAILY ON[facility] Sevelamer Carbonate (Renvela Powder Packet -) 2.4 gm PO TIDCM ON[facility] - Objective Vital Signs: Vital Signs Temperature 98.2 F 09/14/16 19:00 Pulse Rate 60 09/14/16 19:00 Respiratory Rate 24 09/14/16 19:00 Blood Pressure 158/67 09/14/16 19:00 O2 Sat by Pulse Oximetry (%) 95 09/14/16 19:00 Labs: CBC, BMP 09/12/16 05:35 09/12/16 05:35 INR, PTT INR 1.01 (0.82-1.09) 09/07/16 11:33 Problem List - Problems (1) Acute respiratory failure with hypoxia and hypercapnia Code(s): J96.01 - ACUTE RESPIRATORY FAILURE WITH HYPOXIA J96.02 - ACUTE RESPIRATORY FAILURE WITH HYPERCAPNIA (2) Altered mental status Code(s): R41.82 - ALTERED MENTAL STATUS, UNSPECIFIED Qualifiers: Altered mental status type: transient alteration of awareness Qualified Code(s): R40.4 - Transient alteration of awareness (3) Dementia Code(s): F03.90 - UNSPECIFIED DEMENTIA WITHOUT BEHAVIORAL DISTURBANCE Qualifiers: Dementia type: Alzheimer's disease Alzheimer's disease onset: unspecified onset Dementia behavioral disturbance: without behavioral disturbance Qualified Code(s): G30.9 - Alzheimer's disease, unspecified; F02.80 - Dementia in other diseases classified elsewhere without behavioral disturbance (4) ESRD (end stage renal disease) on dialysis Code(s): N18.6 - END STAGE RENAL DISEASE Z99.2 - DEPENDENCE ON RENAL DIALYSIS (5) Seizure Code(s): R56.9 - UNSPECIFIED CONVULSIONS (6) Weakness Code(s): R53.1 - WEAKNESS Assessment/Plan 81 year old man PMhx of ESRD on HD -> PD (s/p 2 weeks ago), Hypertension, IDDM , Dementia (progressive over the past 2 years) who presented from home with malfunctioning PD catheter ; 1) suspect encephalopathy uremic/metabolic vs infectious -- doing better on dialysis and ABX , close to baseline can hold keppra for now; new PD cath to be used after 2 weeks, 2) severe distal neuropathy with wasting , with rigidity and occ myoclonus - uremic/DM neurology will sign off kindly call back PRN Dr Prado [phone]
[2016-09-14 21:58] LABS: MCH 32.5 pg (25.7-33.7); MCHC 33.1 g/dl (32.0-35.9); MEAN CELL VOLUME 98.4 fl (80-96); MEAN PLT VOLUME 11.1 fl (7.5-11.1); PLATELET COUNT 116 K/MM3 (134-434); RDW 15.1 % (11.9-15.9); WHITE BLOOD COUNT 7.3 K/mm3 (4.0-10.0)
[2016-09-14 22:46] LABS: CALCIUM 8.6 mg/dL (8.5-10.1); MAGNESIUM 2.6 mg/dL (1.8-2.4); PHOSPHOROUS 5.4 mg/dL (2.5-4.9)
[2016-09-14 22:48] LABS: BILIRUBIN,TOTAL 0.5 mg/dL (0.2-1.0); CREATININE 7.2 mg/dL (0.7-1.3); TOT PROT 6.6 g/dl (6.4-8.2)
[2016-09-14] MEDS: ISOSORBIDE MONONITRATE 30 MG TAB.SR.24H (FP) PO SCH (23:43)
[2016-09-14] MEDS: ATORVASTATIN CA 40 MG TABLET (FP) PO SCH (23:43)
[2016-09-15] MEDS: INSULIN DETEMIR 100 UNITS/ML MDV SQ SCH (08:00)
[2016-09-15] MEDS: SEVELAMER CARBONATE 2.4 GM POWDER PACKET PO SCH ×3 (08:17→17:19)
[2016-09-15 08:55] LABS: CALCIUM 8.2 mg/dL (8.5-10.1); CREATININE 3.5 mg/dL (0.7-1.3)
[2016-09-15] MEDS: INSULIN SLIDING SCALE (NOVOLOG) 1 VIAL SQ SCH ×4 (09:16→22:01)
[2016-09-15] MEDS ORDERED: POLYETHYLENE GLYCOL 3350 119 GM BTL PO SCH (10:00)
--- NOTE | 2016-09-15 10:07 | PN ---
Progress Note (short form) - Note Progress Note: Anesthesia POD#1 S/P Venogram left arm under MAC Doing well, stable. No complications to anesthesia seen. Magdalena Lyman.
[2016-09-15] MEDS: ASPIRIN 81 MG CHEWABLE TABLETS PO SCH (10:16)
[2016-09-15] MEDS: amLODIPine BESYLATE 5 MG TABLET (FP) PO SCH (10:16)
[2016-09-15] MEDS: VITAMIN B COMP W-C 1 EA TABLET PO SCH (10:16)
[2016-09-15] MEDS: MEGESTROL ACETATE 40 MG TABLET PO SCH (10:16)
[2016-09-15] MEDS: NEBIVOLOL 5 MG TABLET (FP) PO SCH ×2 (10:16→21:30)
[2016-09-15] MEDS: LOSARTAN POTASSIUM 50 MG TABLET (FP) PO SCH (10:16)
[2016-09-15] MEDS ORDERED: PT OWN MED DRAWER 7, Y5N ONE (10:23)
--- NOTE | 2016-09-15 10:44 | PN ---
Progress Note (short form) - Note Progress Note: Renal Follow up for ESRD on HD Pt seen and examined at the bedside lethargic this am reports he was more awake yesterday s/p Vascular sx intervention for AVF stenosis yesterday Vital Signs Temperature 99.6 F 09/15/16 05:48 Pulse Rate 59 L 09/15/16 05:48 Respiratory Rate 20 09/15/16 05:48 Blood Pressure 150/58 09/15/16 05:48 O2 Sat by Pulse Oximetry (%) 100 09/15/16 00:24 Intake & Output 09/12/16 09/13/16 09/14/16 09/15/16 23:59 23:59 23:59 23:59 Intake Total 100 Output Total 0 Balance 100 Weight 142 lb 9.6 oz 133 lb Gen: sleeping/lethargic HEENT: NC/AT, No JVD CVS: RRR, No M/R Lungs: CTA Abd: soft NT/ND. Abd dressing pad in place. Ext: No edema, clubbing or cyanosis CBC, BMP 09/14/16 19:35 09/15/16 06:00 Current Medications Acetaminophen (Tylenol -) 650 mg PO DAILY PRN PRN Reason: PAIN Amlodipine Besylate (Norvasc -) 5 mg PO DAILY [facility] Last Admin: 09/15/16 10:16 Dose: 5 mg Aspirin (Asa -) 81 mg PO DAILY [facility] Last Admin: 09/15/16 10:16 Dose: 81 mg Atorvastatin Calcium (Lipitor -) 40 mg PO HS [facility] Last Admin: 09/14/16 23:43 Dose: 40 mg Ceftazidime 1 gm/ Dextrose 100 mls @ 200 mls/hr IVPB [email or web address] [facility] Insulin Aspart (Novolog Vial Sliding Scale -) 1 vial SQ ACHS [facility] PRN Reason: Protocol Last Admin: 09/15/16 09:16 Dose: 6 units Insulin Detemir (Levemir Vial) 12 units SQ ACBK [facility] Last Admin: 09/15/16 08:00 Dose: 12 units Isosorbide Mononitrate (Imdur -) 30 mg PO HS [facility] Last Admin: 09/14/16 23:43 Dose: 30 mg Losartan Potassium (Cozaar -) 50 mg PO DAILY [facility] Last Admin: 09/15/16 10:16 Dose: 50 mg Megestrol Acetate (Megace -) 40 mg PO DAILY [facility] Last Admin: 09/15/16 10:16 Dose: 40 mg Multivit/Ca Carb/B Cmplx/FA/Prenat (Nephro-[place] -) 1 tablet PO DAILY [facility] Last Admin: 09/15/16 10:16 Dose: 1 tablet Nebivolol (Bystolic -) 5 mg PO BID [facility] Last Admin: 09/15/16 10:16 Dose: 5 mg Polyethylene Glycol (Miralax (For Daily Use) -) 17 gm PO DAILY [facility] Last Admin: 09/15/16 10:16 Dose: 17 gm Sevelamer Carbonate (Renvela Powder Packet -) 2.4 gm PO TIDCM [facility] Last Admin: 09/15/16 08:17 Dose: 2.4 gm A/P 81 year old Gentleman with PMhx of ESRD on HD -> PD (started 2 weeks ago), Hypertension, IDDM, Dementia (progressive over the past 2 years) who presented from home with malfunctioning PD catheter (tip was not in the pelvis) and admitted for replacement of the catheter. #Uremic Encephlopathy/AMS Continue management as per pulmonary and Neurology s/p AVF stenosis intervention yesterday, BUN is 36 today which is the lowest it has been this admission -? resolution of suspected recirculation #Fevers continue Abx as per ID PD catheter fluid Cx sent yesterday #Hypercarbia/Hypxoia Continue BIPAP and supplemental O2 as per pulmonary #Acute Anemia hgb stable s/p transfusion Abd Ct w/o evidence of collection/hematoma #PD catheter dysfunction s/p PD catheter exchanged #ESRD s/p dialysis yesterday with 2.5 kg uF BP was stable no indication for dialysis today next treatment tomorrow Tayo Pederson DO
--- NOTE | 2016-09-15 11:18 | PN ---
Progress Note, Physician History of Present Illness: PULMONARY MORE ALERT,- RESP DISTRESS. - Current Medication List Current Medications: Active Medications Acetaminophen (Tylenol -) 650 mg PO DAILY PRN PRN Reason: PAIN Amlodipine Besylate (Norvasc -) 5 mg PO DAILY [facility] Last Admin: 09/15/16 10:16 Dose: 5 mg Aspirin (Asa -) 81 mg PO DAILY [facility] Last Admin: 09/15/16 10:16 Dose: 81 mg Atorvastatin Calcium (Lipitor -) 40 mg PO HS [facility] Last Admin: 09/14/16 23:43 Dose: 40 mg Epoetin Silvestre (Epogen -) 10,000 units IVPUSH ONCE ONE Stop: 09/16/16 09:01 Ceftazidime 1 gm/ Dextrose 100 mls @ 200 mls/hr IVPB [email or web address] ONUR Vancomycin HCl 1,000 mg/ (Dextrose) 250 mls @ 250 mls/hr IVPB ONCE ONE Stop: 09/16/16 09:59 Insulin Aspart (Novolog Vial Sliding Scale -) 1 vial SQ ACHS [facility] PRN Reason: Protocol Last Admin: 09/15/16 09:16 Dose: 6 units Insulin Detemir (Levemir Vial) 12 units SQ ACBK [facility] Last Admin: 09/15/16 08:00 Dose: 12 units Isosorbide Mononitrate (Imdur -) 30 mg PO HS [facility] Last Admin: 09/14/16 23:43 Dose: 30 mg Losartan Potassium (Cozaar -) 50 mg PO DAILY [facility] Last Admin: 09/15/16 10:16 Dose: 50 mg Megestrol Acetate (Megace -) 40 mg PO DAILY [facility] Last Admin: 09/15/16 10:16 Dose: 40 mg Multivit/Ca Carb/B Cmplx/FA/Prenat (Nephro-Kimani -) 1 tablet PO DAILY [facility] Last Admin: 09/15/16 10:16 Dose: 1 tablet Nebivolol (Bystolic -) 5 mg PO BID [facility] Last Admin: 09/15/16 10:16 Dose: 5 mg Polyethylene Glycol (Miralax (For Daily Use) -) 17 gm PO DAILY [facility] Last Admin: 09/15/16 10:16 Dose: 17 gm Sevelamer Carbonate (Renvela Powder Packet -) 2.4 gm PO TIDCM [facility] Last Admin: 09/15/16 08:17 Dose: 2.4 gm - Objective Vital Signs: Vital Signs Temperature 99.6 F 09/15/16 05:48 Pulse Rate 59 L 09/15/16 05:48 Respiratory Rate 20 09/15/16 05:48 Blood Pressure 150/58 09/15/16 05:48 O2 Sat by Pulse Oximetry (%) 100 09/15/16 00:24 Constitutional: Yes: Calm, Thin Eyes: Yes: WNL HENT: Yes: WNL Neck: Yes: WNL Cardiovascular: Yes: Regular Rate and Rhythm, S1, S2 Respiratory: Yes: Diminished (POOR INSPIRATORY EFFORT), Rales (BIBASILAR CRACKLES) Gastrointestinal: Yes: Normal Bowel Sounds, Soft Extremities: Yes: WNL Edema: No Labs: CBC, BMP 09/14/16 19:35 09/15/16 06:00 INR, PTT INR 1.01 (0.82-1.09) 09/07/16 11:33 Problem List - Problems (1) ESRD (end stage renal disease) Code(s): N18.6 - END STAGE RENAL DISEASE (2) Peritoneal dialysis catheter dysfunction Code(s): T85.611A - BREAKDOWN OF INTRAPERITONEAL DIALYSIS CATHETER, INIT Qualifiers: Encounter type: initial encounter Qualified Code(s): T85.611A - Breakdown (mechanical) of intraperitoneal dialysis catheter, initial encounter (3) Uremia Code(s): N19 - UNSPECIFIED KIDNEY FAILURE (4) Acute respiratory failure Code(s): J96.00 - ACUTE RESPIRATORY FAILURE, UNSP W HYPOXIA OR HYPERCAPNIA Qualifiers: Respiratory failure complication: hypoxia Qualified Code(s): J96.01 - Acute respiratory failure with hypoxia (5) Altered mental status Code(s): R41.82 - ALTERED MENTAL STATUS, UNSPECIFIED Qualifiers: Altered mental status type: transient alteration of awareness Qualified Code(s): R40.4 - Transient alteration of awareness (6) Anemia Code(s): D64.9 - ANEMIA, UNSPECIFIED Qualifiers: Other causes of anemia: chronic disease, kidney (7) Coronary artery disease Code(s): I25.10 - ATHSCL HEART DISEASE OF [place] CORONARY ARTERY W/O ANG PCTRS Qualifiers: Coronary Disease-Associated Artery/Lesion type: [place] artery [place] vs. transplanted heart: [place] heart Associated angina: without angina Qualified Code(s): I25.10 - Atherosclerotic heart disease of [place] coronary artery without angina pectoris (8) ESRD (end stage renal disease) on dialysis Code(s): N18.6 - END STAGE RENAL DISEASE Z99.2 - DEPENDENCE ON RENAL DIALYSIS (9) Hypertension Code(s): I10 - ESSENTIAL (PRIMARY) HYPERTENSION Qualifiers: Hypertension type: essential hypertension Qualified Code(s): I10 - Essential (primary) hypertension (10) Insulin dependent diabetes mellitus Code(s): E11.9 - TYPE 2 DIABETES MELLITUS WITHOUT COMPLICATIONS Z79.4 - INTERMEDIATE (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 Assessment/Plan IMP ACUTE HYPOXEMIC/HYPERCAPNEIC RESPIRATORY FAILURE ALTERED MENTAL STATUS ?TOXIC METABOLIC,MEDS ESRD ON HD CHF ASHD S/P CABG IDDM DEMENTIA PLAN BIPAP PRN SUPPLEMENTAL O2 INHALED BRONCHODILATORS HD PER RENAL DR OBREGON Problem List - Problems (1) ESRD (end stage renal disease) Code(s): N18.6 - END STAGE RENAL DISEASE (2) Peritoneal dialysis catheter dysfunction Code(s): T85.611A - BREAKDOWN OF INTRAPERITONEAL DIALYSIS CATHETER, INIT Qualifiers: Encounter type: initial encounter Qualified Code(s): T85.611A - Breakdown (mechanical) of intraperitoneal dialysis catheter, initial encounter (3) Uremia Code(s): N19 - UNSPECIFIED KIDNEY FAILURE (4) Acute respiratory failure Code(s): J96.00 - ACUTE RESPIRATORY FAILURE, UNSP W HYPOXIA OR HYPERCAPNIA Qualifiers: Respiratory failure complication: hypoxia Qualified Code(s): J96.01 - Acute respiratory failure with hypoxia (5) Altered mental status Code(s): R41.82 - ALTERED MENTAL STATUS, UNSPECIFIED Qualifiers: Altered mental status type: transient alteration of awareness Qualified Code(s): R40.4 - Transient alteration of awareness (6) Anemia Code(s): D64.9 - ANEMIA, UNSPECIFIED Qualifiers: Other causes of anemia: chronic disease, kidney (7) Coronary artery disease Code(s): I25.10 - ATHSCL HEART DISEASE OF [place] CORONARY ARTERY W/O ANG PCTRS Qualifiers: Coronary Disease-Associated Artery/Lesion type: [place] artery [place] vs. transplanted heart: [place] heart Associated angina: without angina Qualified Code(s): I25.10 - Atherosclerotic heart disease of [place] coronary artery without angina pectoris (8) ESRD (end stage renal disease) on dialysis Code(s): N18.6 - END STAGE RENAL DISEASE Z99.2 - DEPENDENCE ON RENAL DIALYSIS (9) Hypertension Code(s): I10 - ESSENTIAL (PRIMARY) HYPERTENSION Qualifiers: Hypertension type: essential hypertension Qualified Code(s): I10 - Essential (primary) hypertension (10) Insulin dependent diabetes mellitus Code(s): E11.9 - TYPE 2 DIABETES MELLITUS WITHOUT COMPLICATIONS Z79.4 - CATCHER PLUG (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
--- NOTE | 2016-09-15 14:40 | OP ---
DATE OF OPERATION: 09/14/2016 SURGEON: Hu Mariscal MD PROCEDURE: Cannulation of left arm arteriovenous fistula, venogram of left arm arteriovenous fistula and brachial angiogram. Venoplasty of left arm arteriovenous fistula. PREOPERATIVE DIAGNOSIS: Malfunctioning fistula. POSTOPERATIVE DIAGNOSIS: Malfunctioning fistula with distal vein stenosis. ANESTHESIA: Fractional. ANESTHESIOLOGIST: Khushboo. OPERATIVE FINDINGS: The left brachial artery cephalic vein fistula was patent. The proximal fistula had no areas of stenosis, and there was no stenosis of the central veins. The distal fistula had an 80% stenosis over approximately 5 cm of length from the arterial anastomosis proximally. OPERATIVE PROCEDURE: Following routine patient identification with site and sign verification, intravenous sedation was established. The left arm was prepped with ChloraPrep. Timeout was performed. Xylocaine 1% was infiltrated over the proximal fistula in the arm, and the vein was cannulated in a retrograde direction with a Micropuncture needle. A wire was passed distally, and the needle exchanged for a 5-Thai catheter. The catheter was then exchanged over the wire for a 6-Thai sheath. Venography of the proximal fistula vein and central veins was obtained using dilute contrast and digital technique. A flexible wire and catheter were then advanced distally to the arteriovenous anastomosis, and repeat angiography performed with the above-noted findings. The wire was then replaced, and directed into the proximal brachial artery. A 6 mm x 6 cm angioplasty balloon was used to dilate the distal fistula stenosis using a pressure insufflator to nominal pressure. Repeat angiography revealed resolution of stenosis with 0% residual narrowing seen on angiography. There was brisk flow and a better pulse in the fistula. The sheath and wire were removed. Bleeding was controlled with a mattress suture of 3-0 nylon. Sterile dressing was applied, and the patient was taken to the recovery room in stable condition. HU MARISCAL M.D. [id number]
[2016-09-15] MEDS: ISOSORBIDE MONONITRATE 30 MG TAB.SR.24H (FP) PO SCH (21:30)
[2016-09-15] MEDS: ATORVASTATIN CA 40 MG TABLET (FP) PO SCH (21:31)
[2016-09-16] MEDS: INSULIN DETEMIR 100 UNITS/ML MDV SQ SCH (06:26)
[2016-09-16] MEDS: INSULIN SLIDING SCALE (NOVOLOG) 1 VIAL SQ SCH ×3 (06:26→13:43)
[2016-09-16] MEDS ORDERED: PT OWN MED DRAWER 7, Y5N ONE ×2 (08:15→10:01)
[2016-09-16] MEDS: SEVELAMER CARBONATE 2.4 GM POWDER PACKET PO SCH ×2 (08:42→12:42)
--- NOTE | 2016-09-16 09:31 | PN ---
Progress Note, Physician Chief Complaint: More awake History of Present Illness: stable to be discharged home - Current Medication List Current Medications: Active Medications Acetaminophen (Tylenol -) 650 mg PO DAILY PRN PRN Reason: PAIN Amlodipine Besylate (Norvasc -) 5 mg PO DAILY [facility] Last Admin: 09/15/16 10:16 Dose: 5 mg Aspirin (Asa -) 81 mg PO DAILY [facility] Last Admin: 09/15/16 10:16 Dose: 81 mg Atorvastatin Calcium (Lipitor -) 40 mg PO HS [facility] Last Admin: 09/15/16 21:31 Dose: 40 mg Epoetin Silvestre (Procrit -) 10,000 unit IVPUSH ONCE ONE Stop: 09/16/16 10:01 Ceftazidime 1 gm/ Dextrose 100 mls @ 200 mls/hr IVPB [email or web address] ONUR Vancomycin HCl 1,000 mg/ (Dextrose) 250 mls @ 250 mls/hr IVPB ONCE ONE Stop: 09/16/16 10:59 Insulin Aspart (Novolog Vial Sliding Scale -) 1 vial SQ ACHS [facility] PRN Reason: Protocol Last Admin: 09/16/16 08:16 Dose: 4 units Insulin Detemir (Levemir Vial) 12 units SQ ACBK [facility] Last Admin: 09/16/16 06:26 Dose: 12 units Isosorbide Mononitrate (Imdur -) 30 mg PO HS [facility] Last Admin: 09/15/16 21:30 Dose: 30 mg Losartan Potassium (Cozaar -) 50 mg PO DAILY [facility] Last Admin: 09/15/16 10:16 Dose: 50 mg Megestrol Acetate (Megace -) 40 mg PO DAILY [facility] Last Admin: 09/15/16 10:16 Dose: 40 mg Multivit/Ca Carb/B Cmplx/FA/Prenat (Nephro-Kimani -) 1 tablet PO DAILY [facility] Last Admin: 09/15/16 10:16 Dose: 1 tablet Nebivolol (Bystolic -) 5 mg PO BID [facility] Last Admin: 09/15/16 21:30 Dose: 5 mg Polyethylene Glycol (Miralax (For Daily Use) -) 17 gm PO DAILY [facility] Last Admin: 09/15/16 10:16 Dose: 17 gm Sevelamer Carbonate (Renvela Powder Packet -) 2.4 gm PO TIDCM [facility] Last Admin: 09/15/16 17:19 Dose: 2.4 gm - Objective Vital Signs: Vital Signs Temperature 98.4 F 09/16/16 06:00 Pulse Rate 66 09/16/16 06:00 Respiratory Rate 18 09/16/16 06:00 Blood Pressure 159/70 09/16/16 06:00 O2 Sat by Pulse Oximetry (%) 98 09/15/16 21:00 Constitutional: Yes: Anxious, Cachectic Eyes: Yes: WNL HENT: Yes: WNL Neck: Yes: WNL Respiratory: Yes: Regular Gastrointestinal: Yes: Normal Bowel Sounds Genitourinary: Yes: Anuria Neurological: Yes: Weakness Labs: CBC, BMP 09/14/16 19:35 09/15/16 06:00 INR, PTT INR 1.01 (0.82-1.09) 09/07/16 11:33
[2016-09-16 09:42] LABS: MCH 32.2 pg (25.7-33.7); MCHC 32.3 g/dl (32.0-35.9); MEAN CELL VOLUME 99.6 fl (80-96); MEAN PLT VOLUME 9.7 fl (7.5-11.1); PLATELET COUNT 113 K/MM3 (134-434); RDW 14.9 % (11.9-15.9); WHITE BLOOD COUNT 6.8 K/mm3 (4.0-10.0)
[2016-09-16] MEDS ORDERED: VANCOMYCIN 1,000 MG in DEXTROSE 5%-WATER - 250 ML IVPB ONE (10:00)
[2016-09-16] MEDS ORDERED: EPOETIN ALFA 10,000 UNIT/1 ML VIAL IVPUSH ONE (10:00)
[2016-09-16 10:05] LABS: CALCIUM 7.9 mg/dL (8.5-10.1); CREATININE 5.5 mg/dL (0.7-1.3); PHOSPHOROUS 4.3 mg/dL (2.5-4.9)
--- NOTE | 2016-09-16 11:59 | PN ---
Progress Note, Physician History of Present Illness: PULMONARY ALERT,NAD,ON DIALYSIS - Current Medication List Current Medications: Active Medications Acetaminophen (Tylenol -) 650 mg PO DAILY PRN PRN Reason: PAIN Amlodipine Besylate (Norvasc -) 5 mg PO DAILY [facility] Last Admin: 09/15/16 10:16 Dose: 5 mg Aspirin (Asa -) 81 mg PO DAILY [facility] Last Admin: 09/15/16 10:16 Dose: 81 mg Atorvastatin Calcium (Lipitor -) 40 mg PO HS [facility] Last Admin: 09/15/16 21:31 Dose: 40 mg Ceftazidime 1 gm/ Dextrose 100 mls @ 200 mls/hr IVPB [email or web address] [facility] Insulin Aspart (Novolog Vial Sliding Scale -) 1 vial SQ ACHS [facility] PRN Reason: Protocol Last Admin: 09/16/16 08:16 Dose: 4 units Insulin Detemir (Levemir Vial) 12 units SQ ACBK [facility] Last Admin: 09/16/16 06:26 Dose: 12 units Isosorbide Mononitrate (Imdur -) 30 mg PO HS [facility] Last Admin: 09/15/16 21:30 Dose: 30 mg Losartan Potassium (Cozaar -) 50 mg PO DAILY [facility] Last Admin: 09/15/16 10:16 Dose: 50 mg Megestrol Acetate (Megace -) 40 mg PO DAILY [facility] Last Admin: 09/15/16 10:16 Dose: 40 mg Multivit/Ca Carb/B Cmplx/FA/Prenat (Nephro-[place] -) 1 tablet PO DAILY [facility] Last Admin: 09/15/16 10:16 Dose: 1 tablet Nebivolol (Bystolic -) 5 mg PO BID [facility] Last Admin: 09/15/16 21:30 Dose: 5 mg Polyethylene Glycol (Miralax (For Daily Use) -) 17 gm PO DAILY [facility] Last Admin: 09/15/16 10:16 Dose: 17 gm Sevelamer Carbonate (Renvela Powder Packet -) 2.4 gm PO TIDCM [facility] Last Admin: 09/15/16 17:19 Dose: 2.4 gm - Objective Vital Signs: Vital Signs Temperature 98.8 F 09/16/16 09:15 Pulse Rate 60 09/16/16 11:50 Respiratory Rate 18 09/16/16 11:50 Blood Pressure 127/51 09/16/16 11:50 O2 Sat by Pulse Oximetry (%) 98 09/15/16 21:00 Constitutional: Yes: Calm, Thin Eyes: Yes: WNL HENT: Yes: WNL Neck: Yes: WNL Cardiovascular: Yes: Regular Rate and Rhythm, S1, S2 Respiratory: Yes: Rales (BIBAS[place]AR CRACKLES) Gastrointestinal: Yes: Normal Bowel Sounds, Soft Extremities: Yes: WNL Edema: No Labs: CBC, BMP 09/16/16 09:30 09/16/16 09:30 INR, PTT INR 1.01 (0.82-1.09) 09/07/16 11:33 Problem List - Problems (1) ESRD (end stage renal disease) Code(s): N18.6 - END STAGE RENAL DISEASE (2) Peritoneal dialysis catheter dysfunction Code(s): T85.611A - BREAKDOWN OF INTRAPERITONEAL DIALYSIS CATHETER, INIT Qualifiers: Encounter type: initial encounter Qualified Code(s): T85.611A - Breakdown (mechanical) of intraperitoneal dialysis catheter, initial encounter (3) Uremia Code(s): N19 - UNSPECIFIED KIDNEY FAILURE (4) Acute respiratory failure Code(s): J96.00 - ACUTE RESPIRATORY FAILURE, UNSP W HYPOXIA OR HYPERCAPNIA Qualifiers: Respiratory failure complication: hypoxia Qualified Code(s): J96.01 - Acute respiratory failure with hypoxia (5) Altered mental status Code(s): R41.82 - ALTERED MENTAL STATUS, UNSPECIFIED Qualifiers: Altered mental status type: transient alteration of awareness Qualified Code(s): R40.4 - Transient alteration of awareness (6) Anemia Code(s): D64.9 - ANEMIA, UNSPECIFIED Qualifiers: Other causes of anemia: chronic disease, kidney (7) Coronary artery disease Code(s): I25.10 - ATHSCL HEART DISEASE OF [place] CORONARY ARTERY W/O ANG PCTRS Qualifiers: Coronary Disease-Associated Artery/Lesion type: [place] artery [place] vs. transplanted heart: [place] heart Associated angina: without angina Qualified Code(s): I25.10 - Atherosclerotic heart disease of [place] coronary artery without angina pectoris (8) ESRD (end stage renal disease) on dialysis Code(s): N18.6 - END STAGE RENAL DISEASE Z99.2 - DEPENDENCE ON RENAL DIALYSIS (9) Hypertension Code(s): I10 - ESSENTIAL (PRIMARY) HYPERTENSION Qualifiers: Hypertension type: essential hypertension Qualified Code(s): I10 - Essential (primary) hypertension (10) Insulin dependent diabetes mellitus Code(s): E11.9 - TYPE 2 DIABETES MELLITUS WITHOUT COMPLICATIONS Z79.4 - INPATIENT AUDITOR (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 Assessment/Plan IMP ACUTE HYPOXEMIC/HYPERCAPNEIC RESPIRATORY FAILURE ALTERED MENTAL STATUS ?TOXIC METABOLIC,MEDS IMPROVED ESRD ON HD CHF ASHD S/P CABG IDDM DEMENTIA PLAN SUPPLEMENTAL O2 INHALED BRONCHODILATORS HD PER RENAL DR OBREGON Problem List - Problems (1) ESRD (end stage renal disease) Code(s): N18.6 - END STAGE RENAL DISEASE (2) Peritoneal dialysis catheter dysfunction Code(s): T85.611A - BREAKDOWN OF INTRAPERITONEAL DIALYSIS CATHETER, INIT Qualifiers: Encounter type: initial encounter Qualified Code(s): T85.611A - Breakdown (mechanical) of intraperitoneal dialysis catheter, initial encounter (3) Uremia Code(s): N19 - UNSPECIFIED KIDNEY FAILURE (4) Acute respiratory failure Code(s): J96.00 - ACUTE RESPIRATORY FAILURE, UNSP W HYPOXIA OR HYPERCAPNIA Qualifiers: Respiratory failure complication: hypoxia Qualified Code(s): J96.01 - Acute respiratory failure with hypoxia (5) Altered mental status Code(s): R41.82 - ALTERED MENTAL STATUS, UNSPECIFIED Qualifiers: Altered mental status type: transient alteration of awareness Qualified Code(s): R40.4 - Transient alteration of awareness (6) Anemia Code(s): D64.9 - ANEMIA, UNSPECIFIED Qualifiers: Other causes of anemia: chronic disease, kidney (7) Coronary artery disease Code(s): I25.10 - ATHSCL HEART DISEASE OF [place] CORONARY ARTERY W/O ANG PCTRS Qualifiers: Coronary Disease-Associated Artery/Lesion type: [place] artery [place] vs. transplanted heart: [place] heart Associated angina: without angina Qualified Code(s): I25.10 - Atherosclerotic heart disease of [place] coronary artery without angina pectoris (8) ESRD (end stage renal disease) on dialysis Code(s): N18.6 - END STAGE RENAL DISEASE Z99.2 - DEPENDENCE ON RENAL DIALYSIS (9) Hypertension Code(s): I10 - ESSENTIAL (PRIMARY) HYPERTENSION Qualifiers: Hypertension type: essential hypertension Qualified Code(s): I10 - Essential (primary) hypertension (10) Insulin dependent diabetes mellitus Code(s): E11.9 - TYPE 2 DIABETES MELLITUS WITHOUT COMPLICATIONS Z79.4 - [facility] (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
[2016-09-16] MEDS ORDERED: CEFTAZIDIME PENTAHYDRATE 1 GM in DEXTROSE 5%-WATER - 100 ML IVPB SCH (12:00)
[2016-09-16] MEDS ORDERED: INSULIN (NOVOLOG) ASPART 100 UNITS/ML 10ML VIAL ONE (13:34)
[2016-09-16] MEDS: NEBIVOLOL 5 MG TABLET (FP) PO SCH (14:01)
[2016-09-16] MEDS: VITAMIN B COMP W-C 1 EA TABLET PO SCH (14:01)
[2016-09-16] MEDS: MEGESTROL ACETATE 40 MG TABLET PO SCH (14:02)
[2016-09-16] MEDS: LOSARTAN POTASSIUM 50 MG TABLET (FP) PO SCH (14:02)
[2016-09-16] MEDS: ASPIRIN 81 MG CHEWABLE TABLETS PO SCH (14:02)
[2016-09-16] MEDS: amLODIPine BESYLATE 5 MG TABLET (FP) PO SCH (14:02)
[2016-09-16 15:31] VITALS: BP 146/76; PULSE 62; TEMP 97.5
--- NOTE | 2016-09-16 15:57 | PN ---
Progress Note (short form) - Note Progress Note: Renal Follow up for ESRD on HD Pt seen and examined during HD earlier today BP stable access with good flow no acute complaints awake and alert Vital Signs Temperature 97.5 F L 09/16/16 15:27 Pulse Rate 62 09/16/16 15:27 Respiratory Rate 20 09/16/16 15:27 Blood Pressure 146/76 09/16/16 15:27 O2 Sat by Pulse Oximetry (%) 98 09/15/16 21:00 Intake & Output 09/13/16 09/14/16 09/15/16 09/16/16 23:59 23:59 23:59 23:59 Intake Total 100 210 210 Output Total 0 0 0 Balance 100 210 210 Weight 133 lb 133 lb Gen: sleeping/lethargic HEENT: NC/AT, No JVD CVS: RRR, No M/R Lungs: CTA Abd: soft NT/ND. Abd dressing pad in place. Ext: No edema, clubbing or cyanosis CBC, BMP 09/16/16 09:30 09/16/16 09:30 Current Medications Acetaminophen (Tylenol -) 650 mg PO DAILY PRN PRN Reason: PAIN Amlodipine Besylate (Norvasc -) 5 mg PO DAILY [facility] Last Admin: 09/16/16 14:02 Dose: 5 mg Aspirin (Asa -) 81 mg PO DAILY [facility] Last Admin: 09/16/16 14:02 Dose: 81 mg Atorvastatin Calcium (Lipitor -) 40 mg PO HS [facility] Last Admin: 09/15/16 21:31 Dose: 40 mg Ceftazidime 1 gm/ Dextrose 100 mls @ 200 mls/hr IVPB [email or web address] [facility] Insulin Aspart (Novolog Vial Sliding Scale -) 1 vial SQ ACHS [facility] PRN Reason: Protocol Last Admin: 09/16/16 13:43 Dose: 4 units Insulin Detemir (Levemir Vial) 12 units SQ ACBK [facility] Last Admin: 09/16/16 06:26 Dose: 12 units Isosorbide Mononitrate (Imdur -) 30 mg PO HS [facility] Last Admin: 09/15/16 21:30 Dose: 30 mg Losartan Potassium (Cozaar -) 50 mg PO DAILY [facility] Last Admin: 09/16/16 14:02 Dose: 50 mg Megestrol Acetate (Megace -) 40 mg PO DAILY [facility] Last Admin: 09/16/16 14:02 Dose: 40 mg Multivit/Ca Carb/B Cmplx/FA/Prenat (Nephro-Kimani -) 1 tablet PO DAILY [facility] Last Admin: 09/16/16 14:01 Dose: 1 tablet Nebivolol (Bystolic -) 5 mg PO BID [facility] Last Admin: 09/16/16 14:01 Dose: 5 mg Polyethylene Glycol (Miralax (For Daily Use) -) 17 gm PO DAILY [facility] Last Admin: 09/15/16 10:16 Dose: 17 gm Sevelamer Carbonate (Renvela Powder Packet -) 2.4 gm PO TIDCM [facility] Last Admin: 09/16/16 12:42 Dose: 2.4 gm A/P 81 year old Gentleman with PMhx of ESRD on HD -> PD (started 2 weeks ago), Hypertension, IDDM, Dementia (progressive over the past 2 years) who presented from home with malfunctioning PD catheter (tip was not in the pelvis) and admitted for replacement of the catheter. #Uremic Encephlopathy/AMS MS much improved today maintain off keppra BUN improved s/p relief of stenosis #Fevers PD catheter fluid Cx sent yesterday - no growth to date Will continue Ceftazidine for next 3 dialysis treatments as per ID #Hypercarbia/Hypxoia Continue BIPAP and supplemental O2 as per pulmonary #Acute Anemia hgb stable s/p transfusion Abd Ct w/o evidence of collection/hematoma #PD catheter dysfunction s/p PD catheter exchanged #ESRD stable HD today next HD tomorrow as outpatient Tayo Pederson DO
--- NOTE | 2016-09-16 16:05 | PN ---
Progress Note, Physician History of Present Illness: patient much better no fevers - Current Medication List Current Medications: Active Medications Acetaminophen (Tylenol -) 650 mg PO DAILY PRN PRN Reason: PAIN Amlodipine Besylate (Norvasc -) 5 mg PO DAILY [facility] Last Admin: 09/16/16 14:02 Dose: 5 mg Aspirin (Asa -) 81 mg PO DAILY [facility] Last Admin: 09/16/16 14:02 Dose: 81 mg Atorvastatin Calcium (Lipitor -) 40 mg PO HS [facility] Last Admin: 09/15/16 21:31 Dose: 40 mg Ceftazidime 1 gm/ Dextrose 100 mls @ 200 mls/hr IVPB MoWeFr@12 [facility] Insulin Aspart (Novolog Vial Sliding Scale -) 1 vial SQ ACHS [facility] PRN Reason: Protocol Last Admin: 09/16/16 13:43 Dose: 4 units Insulin Detemir (Levemir Vial) 12 units SQ ACBK [facility] Last Admin: 09/16/16 06:26 Dose: 12 units Isosorbide Mononitrate (Imdur -) 30 mg PO HS [facility] Last Admin: 09/15/16 21:30 Dose: 30 mg Losartan Potassium (Cozaar -) 50 mg PO DAILY [facility] Last Admin: 09/16/16 14:02 Dose: 50 mg Megestrol Acetate (Megace -) 40 mg PO DAILY [facility] Last Admin: 09/16/16 14:02 Dose: 40 mg Multivit/Ca Carb/B Cmplx/FA/Prenat (Nephro-Kimani -) 1 tablet PO DAILY [facility] Last Admin: 09/16/16 14:01 Dose: 1 tablet Nebivolol (Bystolic -) 5 mg PO BID [facility] Last Admin: 09/16/16 14:01 Dose: 5 mg Polyethylene Glycol (Miralax (For Daily Use) -) 17 gm PO DAILY [facility] Last Admin: 09/15/16 10:16 Dose: 17 gm Sevelamer Carbonate (Renvela Powder Packet -) 2.4 gm PO TIDCM [facility] Last Admin: 09/16/16 12:42 Dose: 2.4 gm - Objective Vital Signs: Vital Signs Temperature 97.5 F L 09/16/16 15:27 Pulse Rate 62 09/16/16 15:27 Respiratory Rate 20 09/16/16 15:27 Blood Pressure 146/76 09/16/16 15:27 O2 Sat by Pulse Oximetry (%) 98 09/15/16 21:00 Constitutional: Yes: No Distress, Calm Cardiovascular: Yes: Regular Rate and Rhythm Respiratory: Yes: Regular, CTA Bilaterally Musculoskeletal: Yes: WNL Extremities: Yes: Other Integumentary: Yes: Other Neurological: Yes: Alert Labs: CBC, BMP 09/16/16 09:30 09/16/16 09:30 INR, PTT INR 1.01 (0.82-1.09) 09/07/16 11:33 Assessment/Plan 81 year old Gentleman with PMhx of ESRD on HD -> PD (started 2 weeks ago), Hypertension, IDDM, Dementia (progressive over the past 2 years) who presented from home with malfunctioning PD catheter (tip was not in the pelvis) and admitted for replacement of the catheter. #Uremic Encephlopathy/AMS #Fevers #Hypercarbia/Hypxoia #Acute Anemia #PD catheter dysfunction s/p PD catheter exchanged #ESRD fever the fever either are coming from her av fistula or peritoneum,i am going to start patient on abx if the fever does not break then will have to do LP on the patinets plan continue monitoring continue abx as planned paatient will need 3 more doses of cefipime d/w with nephro if cefipime not available then switch to ceftazidine according to renal function
== END 2016-09-16 16:38 | disposition home or self-care (01) | DRG 907 ==
LOC: JER 09:50 → JERBED 13:54 → J4W 20:10
PROVIDERS: ADMIT Internal Medicine; ATTEND Internal Medicine
PROC: 5A1D60Z (ICD-10-PCS; 2016-09-07)
PROC: 0WPG43Z Removal of Infusion Device from Peritoneal Cavity, Percutaneous Endoscopic Approach (ICD-10-PCS; principal; 2016-09-08)
PROC: 0DNW4ZZ Release Peritoneum, Percutaneous Endoscopic Approach (ICD-10-PCS; 2016-09-08)
PROC: 0WHG43Z Insertion of Infusion Device into Peritoneal Cavity, Percutaneous Endoscopic Approach (ICD-10-PCS; 2016-09-08)
PROC: 5A09557 Assistance with Respiratory Ventilation, Greater than 96 Consecutive Hours, Continuous Positive Airway Pressure (ICD-10-PCS; 2016-09-09)
PROC: 30233N1 Transfusion of Nonautologous Red Blood Cells into Peripheral Vein, Percutaneous Approach (ICD-10-PCS; 2016-09-10)
PROC: 4A00X4Z Measurement of Central Nervous Electrical Activity, External Approach (ICD-10-PCS; 2016-09-12)
PROC: 057A3ZZ Dilation of Left Brachial Vein, Percutaneous Approach (ICD-10-PCS; 2016-09-14)
PROC: B50NYZZ Plain Radiography of Left Upper Extremity Veins using Other Contrast (ICD-10-PCS; 2016-09-14)
DX: T85.611A Breakdown (mechanical) of intraperitoneal dialysis catheter, initial encounter (principal); G93.49 Other encephalopathy; J96.01 Acute respiratory failure with hypoxia; J96.02 Acute respiratory failure with hypercapnia; N18.6 End stage renal disease; I13.2 Hypertensive heart and chronic kidney disease with heart failure and with stage 5 chronic kidney disease, or end stage renal disease; E87.2 Acidosis; Y83.8 Other surgical procedures as the cause of abnormal reaction of the patient, or of later complication, without mention of misadventure at the time of the procedure; Y92.89 Other specified places as the place of occurrence of the external cause; I25.10 Atherosclerotic heart disease of native coronary artery without angina pectoris; E11.9 Type 2 diabetes mellitus without complications; E78.5 Hyperlipidemia, unspecified; G62.89 Other specified polyneuropathies; D64.9 Anemia, unspecified; F03.90 Unspecified dementia, unspecified severity, without behavioral disturbance, psychotic disturbance, mood disturbance, and anxiety; R56.9 Unspecified convulsions; K66.0 Peritoneal adhesions (postprocedural) (postinfection); T82.858A Stenosis of other vascular prosthetic devices, implants and grafts, initial encounter; Z95.1 Presence of aortocoronary bypass graft; Z79.4 Long term (current) use of insulin; Z87.891 Personal history of nicotine dependence
CPT/HCPCS: 36415; 36430; 36600; 70450-TC; 71010-TC; 72170-TC; 74020-TC; 74176-TC; 76000-TC; 80048; 80053; 82140; 82607; 82803; 83036; 83735; 84100; 84443; 85025; 85027; 85610; 85651; 86704; 86706; 86708; 86850; 86900; 86901; 86922; 87040; 87070; 87075; 87205; 87340; 88300-TC; 93005; 93010; 93306-TC; 93971; 94640; 94660; 94760; 94761; 95816; 97161-GP; 99283-25; G0480; J0885; J8999; P9038; P9058

== ENCOUNTER 2016-09-21 13:54 | Emergency (ER) | payer OTHER, MEDICARE ==
--- NOTE | 2016-09-21 14:05 | PDOC ---
History of Present Illness - History of Present Illness Initial Comments: 09/21/16 14:47 The patient is a 81 year old male with significant past medical history of diabetes, hyperlipidemia, CHF, CAD s/p CABG, ESRD on dialysis M/W/F who presents to the emergency department s/p seizure that happened this afternoon while at dialysis. The patient had just finished his dialysis treatment when he had a witnessed seizure. The patient was recently admitted and discharged from [facility] with decreased mental status. The patient has not been taking his Keppra since discharge because the patients didnt want him on Keppra. Upon arrival to the ED, the patient had a witnessed tonic-clonic seizure that lasted approximately 1 minute followed by a postictal phase. History is limited secondary to patients mental status. PMD: Dr. Cota Neurologist: Dr. Prado Renal: Dr. Pederson <Chioma Rivero - Last Filed: 09/21/16 14:47> - General History Source: EMS, Old Records Exam Limitations: Clinical Condition <Gisele Arias - Last Filed: 09/21/16 17:21> - General Chief Complaint: Seizure Stated Complaint: SEIZURE Time Seen by Provider: 09/21/16 14:04 Past History <Chioma Rivero - Last Filed: 09/21/16 14:47> - Past Medical History Anemia: Yes Asthma: No Cancer: No Cardiac Disorders: Yes (CORONARY BYPASS 2003) CVA: No COPD: No CHF: Yes Dementia: No Diabetes: Yes (IDDM,insulin pump) Dialysis: Yes GI Disorders: No Disorders: Yes ([facility]) HTN: Yes Hypercholesterolemia: Yes Liver Disease: No Seizures: No Thyroid Disease: No - Surgical History Abdominal Surgery: No Appendectomy: No Cardiac Surgery: Yes (CORONARY BYPASS 2003) Cholecystectomy: No Lung Surgery: No Neurologic Surgery: No Orthopedic Surgery: No - Immunization History Immunization Up to Date: No - Psycho/Social/Smoking Cessation Hx Anxiety: No Suicidal Ideation: No Smoking Status: Yes Smoking History: Never smoked Have you smoked in the past 12 months: No Number of Cigarettes Smoked Daily: 0 If you are a former smoker, when did you quit?: 30YRS Hx Alcohol Use: No Drug/Substance Use Hx: No Substance Use Type: None Hx Substance Use Treatment: No <Gisele Arias - Last Filed: 09/21/16 17:21> - Past Medical History Allergies/Adverse Reactions: Allergies Allergy/AdvReac Type Severity Reaction Status Date / Time No Known Drug Allergies Allergy Verified 09/21/16 13:56 Home Medications: Ambulatory Orders Acetaminophen [Tylenol] 650 mg PO DAILY PRN 03/07/16 Aspirin [ASA -] 81 mg PO DAILY 03/07/16 Insulin Lispro [Humalog] 0 unit SQ ASDIR PRN 03/07/16 Megestrol Acetate 40 mg PO DAILY 03/07/16 Polyethylene Glycol 3350 [Miralax 119 gm Btl -] 17 gm PO DAILY 03/07/16 Sevelamer Carbonate [Renvela -] 2,400 mg PO TID 03/07/16 Sodium Polystyrene Sulfon/Sorb [Kionex 15 gm/60 ml Suspension] 30 gm PO ASDIR Vit B Cmplx 3/FA/Vit C/Biotin [Rissa-Kimani Rx Tablet] 1 each PO DAILY 03/07/16 Mirtazapine [Remeron -] 7.5 mg PO HS 07/20/16 Atorvastatin Ca [Lipitor] 40 mg PO HS tablet 07/22/16 Isosorbide Mononitrate [Imdur -] 30 mg PO HS tab.sr.24h 07/22/16 Losartan Potassium [Cozaar -] 50 mg PO DAILY tablet 07/22/16 Amlodipine Besylate 5 mg PO DAILY 09/07/16 Insulin Glargine,Hum.rec.anlog [Lantus (nf)] 15 units SQ ACBK 09/07/16 Nebivolol [Bystolic -] 5 mg PO BID 09/07/16 Review of Systems - Review of Systems Able to Perform ROS?: No (Unable to attain.) <Chioma Rivero - Last Filed: 09/21/16 14:47> *Physical Exam - Vital Signs Last Vital Signs Temp Pulse Resp BP Pulse Ox 98.4 F 78 22 189/77 100 09/21/16 14:10 09/21/16 14:15 09/21/16 14:00 09/21/16 14:00 09/21/16 14:15 - Physical Exam Comments: 09/21/16 14:48 GENERAL: Seen having a generalized tonic-clonic seizure, since then has been postictal, no verbal responses. +Tachypneic. HEAD: Normal with no signs of trauma. EYES: PERRLA, EOMI, sclera anicteric, conjunctiva clear. ENT: Ears normal, nares patent, oropharynx clear without exudates. Moist mucous membranes. NECK: Normal range of motion, supple without lymphadenopathy, JVD, or masses. LUNGS: Breath sounds equal, clear to auscultation bilaterally. No wheezes, and no crackles. HEART: +Tachycardic and regular rhythm, normal S1 and S2 without murmur, rub or gallop. ABDOMEN: Soft, nontender, normoactive bowel sounds. No guarding, no rebound. EXTREMITIES: Normal range of motion, no edema. No clubbing or cyanosis. No erythema, or tenderness. NEUROLOGICAL: Cranial nerves II through XII grossly intact. No focal neurological deficits. MUSCULOSKELETAL: Back non-tender to palpation, no CVA tenderness SKIN: Warm, Dry, normal turgor, no rashes or lesions noted. <Chioma Rivero - Last Filed: 09/21/16 14:47> ED Treatment Course - LABORATORY CBC & Chemistry Diagram: 09/21/16 14:16 09/21/16 14:16 - ADDITIONAL ORDERS Additional order review: 09/21/16 14:16 RBC 3.50 L MCV 99.6 H MCHC 32.6 RDW 15.5 MPV 8.9 Neutrophils % 65.7 Lymphocytes % 20.9 D Monocytes % 7.4 Eosinophils % 5.2 H Basophils % 0.8 <Chioma Rivero - Last Filed: 09/21/16 14:47> - LABORATORY CBC & Chemistry Diagram: 09/21/16 14:16 09/21/16 14:16 <Gisele Arias - Last Filed: 09/21/16 17:21> Medical Decision Making - Medical Decision Making 09/21/16 14:05 A portion of this note was documented by scribe services under my direction. I have reviewed the details of the note, within reason, and agree with the documentation with the following case summary and management plan written by me. Nursing documentation reviewed and incorporated into medical decision making This is a 81 yo M with a history of ESRD on HD (M/W/F) Pt had a reported history of seizure (though none witnessed by ) PT was recently admitted and Keppra was stopped as thought that he was somnolent as a result of Keppra Pt was in dialysis today and had a reported seizure Pt presented to the ER Pt had a generalized tonic clonic seizure Case reviewed with Dr Prado Will give Keppra 500mg IV Will not give Ativan He states that pt can be discharged to home if he returns to his baseline mental status 09/21/16 15:47 Laboratory Tests 09/16/16 09/21/16 09/21/16 09:30 14:16 14:16 WBC 6.8 9.3 D Hgb 11.4 L D Plt Count 151 D Sodium 141 BUN 36 H D Creatinine 4.0 H D 09/21/16 17:12 Pt at his baseline per She does not want him to stay in the hospital at this time Case reviewed with Dr Cota Pt can be discharged to home Pt requests that suture in LUE be removed Will remove now Discharge to home Pt should resume Keppra Seizure <Gisele Arias - Last Filed: 09/21/16 17:21> *DC/Admit/Observation/Transfer - Attestations Scribe Attestion: 09/21/16 14:48 Documentation prepared by Chioma Rivero, acting as medical tech for Gisele Arias MD. <Chioma Rivero - Last Filed: 09/21/16 14:47> - Discharge Dispostion Admit: No <Gisele Arias - Last Filed: 09/21/16 17:21> Diagnosis at time of Disposition: Seizure - Discharge Dispostion Disposition: HOME Condition at time of disposition: Improved - Referrals Referrals: Jeremy Cota MD [Primary Care Provider] - - Patient Instructions Printed Discharge Instructions: DI for Seizure (Not Epilepsy/Seizure Disorder) Additional Instructions: Thank you for coming in to the ER today Please resume KEPPRA 500mg po DAILY Follow up with Dr. Prado and Cipriano in 1-2 days Return to the ER for any other concerns or complaints
[2016-09-21 14:08] VITALS: BMI 19.6
[2016-09-21 14:10] VITALS: TEMP 98.4
[2016-09-21] MEDS ORDERED: LORAZEPAM CARPU-JECT 2 MG/ML DISP.SYRIN ONE (14:27)
[2016-09-21] MEDS ORDERED: levETIRAcetam 500 MG/5 ML INJECTION VIAL IVPB ONE (14:29)
[2016-09-21 14:41] LABS: BASOPHIL 0.8 % (0-2.0); EOSINOPHIL 5.2 % (0-4.5); MCH 32.5 pg (25.7-33.7); MCHC 32.6 g/dl (32.0-35.9); MEAN CELL VOLUME 99.6 fl (80-96); MEAN PLT VOLUME 8.9 fl (7.5-11.1); NEUTROPHILS 65.7 % (42.8-82.8); PLATELET COUNT 151 K/MM3 (134-434); RDW 15.5 % (11.9-15.9); WHITE BLOOD COUNT 9.3 K/mm3 (4.0-10.0)
[2016-09-21 15:20] LABS: ALBUMIN 3.3 g/dl (3.4-5.0); BILIRUBIN,TOTAL 0.4 mg/dL (0.2-1.0); CALCIUM 8.4 mg/dL (8.5-10.1); TOT PROT 7.2 g/dl (6.4-8.2)
[2016-09-21 18:39] VITALS: BP 171/66; PULSE 68
== END 2016-09-21 18:10 | disposition home or self-care (01) ==
LOC: JER 13:54
PROC: 3E033GC Introduction of Other Therapeutic Substance into Peripheral Vein, Percutaneous Approach (ICD-10-PCS; principal; 2016-09-21)
DX: R56.9 Unspecified convulsions (principal); D64.9 Anemia, unspecified; Z79.4 Long term (current) use of insulin; E78.00 Pure hypercholesterolemia, unspecified; I12.0 Hypertensive chronic kidney disease with stage 5 chronic kidney disease or end stage renal disease; E11.22 Type 2 diabetes mellitus with diabetic chronic kidney disease; N18.6 End stage renal disease; Z99.2 Dependence on renal dialysis; I50.9 Heart failure, unspecified; Z95.1 Presence of aortocoronary bypass graft
CPT/HCPCS: 36415; 71010-TC; 80053; 85025; 96365; 99285-25

== ENCOUNTER 2016-10-19 23:22 | Inpatient (IN) | payer OTHER, MEDICARE ==
--- NOTE | 2016-10-19 23:25 | PDOC ---
History of Present Illness - General History Source: EMS, Spouse () Exam Limitations: Clinical Condition, Intubated, Unresponsive - History of Present Illness Initial Comments: 10/20/16 00:03 The patient is a 81 year old male with significant past medical history of dementia??, diabetes, hyperlipidemia, CHF, CAD s/p CABG, ESRD on hemodialysis ( prn) and peritoneal dialysis (daily) who presents to the ED BIBA from home with respiratory failure prior to arrival. As per EMS, patient has been feeling ill for the past several days and was noted by to be unresponsive and not breathing just prior to arrival. Upon arrival, patient was intubated at the scene by ems and BVM was placed. EMS also administered 90 of succinate and 18 of etomidate. As per , patient completed his last hemodialysis on Monday and peritoneal dialysis today. Allergies: NKDA Social History: Former smoker (quit 30 years ago). No alcohol or drug use reported. Lives at home and is being taken care by who is a nurse. Past Surgical History: s/p CABG PCP: Dr. Jeremy Cota Nephro: Dr. Debbie Snyder <Kat Almendarez - Last Filed: 10/20/16 00:08> - General History Source: Spouse <Dagoberto Eckert - Last Filed: 10/24/16 19:43> - General Stated Complaint: UNRESPONSIVE Time Seen by Provider: 10/19/16 23:24 Past History <Kat Almendarez - Last Filed: 10/20/16 00:08> - Past Medical History Anemia: Yes Asthma: No Cancer: No Cardiac Disorders: Yes (CORONARY BYPASS 2003) CVA: No COPD: No CHF: Yes Dementia: No Diabetes: Yes (IDDM,insulin pump) Dialysis: Yes [facility] Disorders: No [facility] HTN: Yes Hypercholesterolemia: Yes Liver Disease: No Seizures: No Thyroid Disease: No - Surgical History Abdominal Surgery: No Appendectomy: No Cardiac Surgery: Yes (CORONARY BYPASS 2003) Cholecystectomy: No Lung Surgery: No Neurologic Surgery: No Orthopedic Surgery: No - Immunization History Immunization Up to Date: No - Psycho/Social/Smoking Cessation Hx Anxiety: No Suicidal Ideation: No Smoking Status: Yes Smoking History: Never smoked Have you smoked in the past 12 months: No Number of Cigarettes Smoked Daily: 0 If you are a former smoker, when did you quit?: 30YRS Hx Alcohol Use: No Drug/Substance Use Hx: No Substance Use Type: None Hx Substance Use Treatment: No <Dagoberto Eckert - Last Filed: 10/24/16 19:43> - Past Medical History Allergies/Adverse Reactions: Allergies Allergy/AdvReac Type Severity Reaction Status Date / Time No Known Drug Allergies Allergy Verified 10/19/16 23:26 Home Medications: Ambulatory Orders Acetaminophen [Tylenol] 650 mg PO DAILY PRN 03/07/16 Aspirin [ASA -] 81 mg PO DAILY 03/07/16 Insulin Lispro [Humalog] 0 unit SQ ASDIR PRN 03/07/16 Megestrol Acetate 40 mg PO DAILY 03/07/16 Polyethylene Glycol 3350 [Miralax 119 gm Btl -] 17 gm PO DAILY 03/07/16 Sevelamer Carbonate [Renvela -] 2,400 mg PO TID 03/07/16 Sodium Polystyrene Sulfon/Sorb [Kionex 15 gm/60 ml Suspension] 30 gm PO ASDIR Vit B Cmplx 3/FA/Vit C/Biotin [Rissa-Kimani Rx Tablet] 1 each PO DAILY 03/07/16 Mirtazapine [Remeron -] 7.5 mg PO HS 07/20/16 Atorvastatin Ca [Lipitor] 40 mg PO HS tablet 07/22/16 Isosorbide Mononitrate [Imdur -] 30 mg PO HS tab.sr.24h 07/22/16 Losartan Potassium [Cozaar -] 50 mg PO DAILY tablet 07/22/16 Amlodipine Besylate 5 mg PO DAILY 09/07/16 Insulin Glargine,Hum.rec.anlog [Lantus (nf)] 15 units SQ ACBK 09/07/16 Nebivolol [Bystolic -] 5 mg PO BID 09/07/16 Levetiracetam [Keppra] 500 mg PO DAILY #60 tablet 09/21/16 Review of Systems - Review of Systems Able to Perform ROS?: No Comments:: 10/19/16 23:52 Unable to obtain due to pts clinical condition. <Kat Almendarez - Last Filed: 10/20/16 00:08> *Physical Exam - Vital Signs Last Vital Signs Temp Pulse Resp BP Pulse Ox 66 18 112/66 99 10/19/16 23:26 10/19/16 23:26 10/19/16 23:26 10/19/16 23:26 - Physical Exam Comments: 10/19/16 23:41 GENERAL: Well developed, well nourished. No acute distress. HEENT: Normocephalic, atraumatic. PERRLA, EOMI. No conjunctival pallor. Sclera are non- icteric. Moist mucous membranes. Oropharynx is clear. NECK: Supple. Full ROM. No JVD. Carotid pulses 2+ and symmetric, without bruits. CARDIOVASCULAR: Tachycardia. Regular rhythm. No murmurs, rubs, or gallops. PULMONARY: Severe respiratory distress. Pt is intubated, being bagged by bvm from ems, decreased breath sounds with bilateral scattered crackles throughout. ABDOMINAL: Soft. Distended. No rebound or guarding. Positive fluid wave. MUSCULOSKELETAL No bony deformities. EXTREMITIES: No cyanosis. No clubbing. No edema. PD catheter in place on the right side of the umbilicus. AV fistula on left upper extremity with positive bruit and thrill. SKIN: Warm and dry. Normal capillary refill. No rashes. No jaundice. NEUROLOGICAL: Pt is intubated and unresponsiveness. 10/19/16 23:52 GENERAL: Well developed, well nourished. No acute distress. HEENT: Normocephalic, atraumatic. PERRLA, EOMI. No conjunctival pallor. Sclera are non- icteric. Moist mucous membranes. Oropharynx is clear. NECK: Supple. Full ROM. No JVD. Carotid pulses 2+ and symmetric, without bruits. CARDIOVASCULAR: Irregularly irregular. No murmurs, rubs, or gallops. PULMONARY: Severe respiratory distress. Pt is intubated, being bagged by bvm from ems, decreased breath sounds with bilateral scattered crackles throughout. ABDOMINAL: Soft. Distended. No rebound or guarding. Positive fluid wave. MUSCULOSKELETAL No bony deformities. EXTREMITIES: No cyanosis. No clubbing. No edema. PD catheter in place on the right side of the umbilicus. AV fistula on left upper extremity with positive bruit and thrill. SKIN: Warm and dry. Normal capillary refill. No rashes. No jaundice. NEUROLOGICAL: Pt is intubated and unresponsiveness. <Kat Almendarez - Last Filed: 10/20/16 00:08> Heart Score/ECG Review - ECG Impressions Comment:: 10/19/16 23:53 Atrial fibrillation @79bpm Left axis deviation Incomplete RBBB Inferior infarct, age undetermined ST & T wave abnormality, consider anterolateral ischemia Abnormal ECG <Kat Almendarez - Last Filed: 10/20/16 00:08> ED Treatment Course - LABORATORY CBC & Chemistry Diagram: 10/20/16 03:00 10/20/16 03:00 <Dagoberto Eckert - Last Filed: 10/24/16 19:43> Medical Decision Making - Medical Decision Making 10/19/16 23:[address] Tayo Pederson covering for Dr. Debbie Snyder (via answering service) at 23:41 Awaiting call back 10/19/16 23:51 Patient's case discussed with Dr. Pederson at 23:51 10/20/16 23:[address] Jeremy Cota (via answering service) and patient's case was discussed. Spoke to Dilcia, HEALTH SCIENCE WRITER and pt is accepted for ICU admission. <Kat Almendarez - Last Filed: 10/20/16 00:08> - Medical Decision Making 10/24/16 19:43 Dr. Eckert: The scribe's documentation has been prepared under my direction and personally reviewed by me in its entirery. I confirm that the note above accurately reflects all work, treatment, procedures, and medical decision making performed by me. <Dagoberto Eckert - Last Filed: 10/24/16 19:43> *DC/Admit/Observation/Transfer - Attestations Scribe Attestion: 10/19/16 23:54 Documentation prepared by Kat Almendarez, acting as diploma medical assistant for Dagoberto Eckert MD <Kat Almendarez - Last Filed: 10/20/16 00:08> - Discharge Dispostion Admit: Yes <Dagoberto Eckert - Last Filed: 10/24/16 19:43> Diagnosis at time of Disposition: CRF (chronic renal failure), CHF (congestive heart failure), ESRD (end stage renal disease) on dialysis, Peritoneal dialysis catheter dysfunction, Acute respiratory failure with hypoxia and hypercapnia - Discharge Dispostion Condition at time of disposition: Guarded - Referrals
[2016-10-19] MEDS ORDERED: CALCIUM CHLORIDE 1 GM/10 ML *DISP.SYRIN IVPUSH ONE (23:41)
[2016-10-20 00:43] LABS: ALLENS TEST POSITIVE; ART PUNCT SITE RIGHT BRACHIAL; ARTERIAL BLD GAS O2 SATURATION 96.3 % (90-98.9); ARTERIAL BLOOD GAS BASE EXCESS -2.3 meq/l (-2-2); ARTERIAL BLOOD GAS HCO3 25.2 meq/L (22-26); ARTERIAL BLOOD GAS PO2 99.5 mmHg (70-100); ARTERIAL BLOOD GAS pH 7.24 (7.35-7.45); LPM/O2% 60%; MECH. VENT. Y; METHEMOGLOBIN 0.6 % (0.4-1.5); PT. ON O2? YES; TYPE OF O2 VENT; VT/PRESS 450
[2016-10-20 00:44] LABS: VENT RATE 14
[2016-10-20 01:02] LABS: MCH 32.6 pg (25.7-33.7); MCHC 32.8 g/dl (32.0-35.9); MEAN CELL VOLUME 99.2 fl (80-96); MEAN PLT VOLUME 9.7 fl (7.5-11.1); PLATELET COUNT 137 K/MM3 (134-434); RDW 14.7 % (11.9-15.9); WHITE BLOOD COUNT 5.8 K/mm3 (4.0-10.0)
--- NOTE | 2016-10-20 01:09 | CONSULT ---
Consult Consult Specialty:: Pulm/CC - History of Present Illness History of Present Illness: Pt is a 81yr old man with PMHx of ESRD, HTN, CAD s/p CABG, DM and dementia. Pt with peritoneal cath placed in August, receiving PD daily and continuing HD once or twice a week. Per , was having difficult eating around 1400 on 10/19 with witnessed "gurgling" that self resolved. However, pt with progressive lethargy --> unresponsiveness s/p PD around 2100. EMS called and pt intubated in the field . Nephrology consulted, pt to receive emergent HD in ICU. Pt received in ICU, unresponsive to noxious stimuli, HR 120s-140s. EKG shows new onset a-fib (my read, compared with earlier EKGs). MAP 50s-60s. Case discussed with Dr. Pederson, will start Vaso for pressure support during dialysis. Pt with continued hypotension during dialysis. Case discussed with sound effects person Dr. Loera. Will hold off on HD for now, continue vaso for pressure support. Cardiology consult in a.m. Case discussed with at bedside who just made him DNR. Case also discussed with her permission with her two sons who are physicians as well as her daughter in law who is also a physician. Case again discussed with Dr. Pederson, will hold off on IVF unless pt acutely hypotensive then will give small bolus for BP support. Ok with 2.25 zosyn and 1g vanc. 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, Peripheral Neuropathy Cardio/Vascular: Yes: CAD Renal/: Yes: Renal Failure, Hemodialysis, Other (on diaylsis ) Psych: Yes: Psychosis - Past Surgical History Past Surgical History: Yes: AV Fistula/Graft, CABG - Alcohol/Substance Use Hx Alcohol Use: No - Smoking History Smoking history: Never smoked Have you smoked in the past 12 months: No Aproximately how many cigarettes per day: 0 If you are a former smoker, when did you quit?: 30YRS - Social History Usual Living Arrangement: With Spouse History of Recent Travel: No Home Medications - Allergies Allergies/Adverse Reactions: Allergies Allergy/AdvReac Type Severity Reaction Status Date / Time No Known Drug Allergies Allergy Verified 10/19/16 23:26 - Home Medications Home Medications: Ambulatory Orders Acetaminophen [Tylenol] 650 mg PO DAILY PRN 03/07/16 Aspirin [ASA -] 81 mg PO DAILY 03/07/16 Insulin Lispro [Humalog] 0 unit SQ ASDIR PRN 03/07/16 Megestrol Acetate 40 mg PO DAILY 03/07/16 Polyethylene Glycol 3350 [Miralax 119 gm Btl -] 17 gm PO DAILY 03/07/16 Sevelamer Carbonate [Renvela -] 2,400 mg PO TID 03/07/16 Sodium Polystyrene Sulfon/Sorb [Kionex 15 gm/60 ml Suspension] 30 gm PO ASDIR Vit B Cmplx 3/FA/Vit C/Biotin [Rissa-Kimani Rx Tablet] 1 each PO DAILY 03/07/16 Mirtazapine [Remeron -] 7.5 mg PO HS 07/20/16 Atorvastatin Ca [Lipitor] 40 mg PO HS tablet 07/22/16 Isosorbide Mononitrate [Imdur -] 30 mg PO HS tab.sr.24h 07/22/16 Losartan Potassium [Cozaar -] 50 mg PO DAILY tablet 07/22/16 Amlodipine Besylate 5 mg PO DAILY 09/07/16 Insulin Glargine,Hum.rec.anlog [Lantus (nf)] 15 units SQ ACBK 09/07/16 Nebivolol [Bystolic -] 5 mg PO BID 09/07/16 Levetiracetam [Keppra] 500 mg PO DAILY #60 tablet 09/21/16 Review of Systems Unable to obtain ROS, reason: alejandro Findings/Remarks: per , pt progressively less responsive in the last few months Physical Exam Vital Signs: Vital Signs Period Temp Pulse Resp BP Sys/Hansen Pulse Ox Last 24 Hr 98.0 F 66-110 14-18 99-112/45-66 99-99 Intake & Output 10/17/16 10/18/16 10/19/16 10/20/16 23:59 23:59 23:59 23:59 Weight 198 lb 6.656 oz Constitutional: Yes: Other (thin limbs, distended abdomen) Eyes: Yes: Other (bilateral miosis, unresponsive to light) Neck: Yes: WNL Cardiovascular: Yes: Pulse Irregular, Other (afib on ekg (my read)) Respiratory: Yes: Diminished (mid lung down, bilateral), Rhonchi (coarse, diffuse bilaterally), Wheezes (faint inspiratory) Gastrointestinal: Yes: Distention, Hypoactive Bowel Sounds ...Rectal Exam: Yes: Deferred Edema: No Peripheral Pulses WNL: Yes (+2 left pedal, +1 rt pedal pulse) Integumentary: Yes: Other (appears dry) Wound/Incision: Yes: Other (RLQ PD cath, dressing CDI) Neurological: Yes: Unresponsive (not responding to noxious stimuli, no sedation) , Other Labs: Abnormal Lab Results 10/20/16 10/20/16 00:02 00:40 RBC 2.91 L Hgb 9.5 L D Hct 28.9 L D MCV 99.2 H ABG pH 7.24 L* D ABG pCO2 at Pt Temp 60.7 H* ABG O2 Content 13.6 L ABG Base Excess -2.3 L Imaging - Results Chest X-ray: Image Reviewed Assessment/Plan Pt is a 81yr old man with PMHx of ESRD, HTN, CAD s/p CABG, DM and dementia. Pt now in the ICU s/p intubation for acute respiratory acidosis. Pt unresponsive, postictal (seizure hx with questionable seizure at home) vs metabolic encephalopathy vs cva, new onset afib with hypotension and lactic acidosis. Pulm -Continue mechanical ventilation overnight -Nebulizers -Fio2 for sat >92 -Plat pressure <30 -f/u repeat chest xray, abg ID: +lactic acid, tmax 99.3 -f/u cultures -Consult -Will give 1 time dose of Vanc/Zosyn -f/u repeat lactic acid Renal: -Dr. Pederson following -HD per renal -Renal dose medication -Monitor electrolytes -IVF only if acute hypotension Cardiology: Troponin 0.15, new onset a-fib (my read), hypotensive -Consult -Will continue Vaso for pressure support -Trend cardiac enzymes -serial ekg -Cont home asa, statin -Hold home antihypertensives -Will start amio for rate control is HR sustained >120 Neuro: Hx of dementia, now unresponsive to noxious stimuli off sedation -Consult -Head CT when more stable -Seizure precautions -Continue home Keppra Prophylactic -Aspiration precautions -DVT
[2016-10-20 01:16] LABS: INR 1.01 (0.82-1.09); PROTHROMBIN TIME (PATIENT) 11.1 SEC (9.98-11.88)
[2016-10-20 01:26] LABS: ALBUMIN 2.8 g/dl (3.4-5.0); ANION GAP 19 (8-16); BILIRUBIN,TOTAL 0.5 mg/dL (0.2-1.0); CALCIUM 9.1 mg/dL (8.5-10.1); CO2 26 mmol/L (21-32); GLUCOSE,RANDOM 247 mg/dL (74-106); MAGNESIUM 2.2 mg/dL (1.8-2.4); SGOT/AST 32 U/L (15-37); SGPT/ALT 23 U/L (12-78); TOT PROT 6.6 g/dl (6.4-8.2)
[2016-10-20] MEDS ORDERED: HEMOQUE TEST 1 EACH EACH ONE (01:28)
[2016-10-20] MEDS ORDERED: HEMOQUE CONTROL SOLUTION ONE (01:29)
[2016-10-20 01:32] LABS: ALK PHOS 118 U/L (45-117); TROPONIN I 0.15 ng/ml (0.00-0.05)
[2016-10-20 01:38] LABS: CREATININE 8.6 mg/dL (0.7-1.3)
[2016-10-20 02:38] VITALS: BMI 21.5
[2016-10-20 02:38] LABS: ACETONE SERUM NEGATIVE (NEGATIVE)
[2016-10-20] MEDS: ALBUMIN HUMAN 25% 100 ML VIAL IVPB SCH ×2 (02:45→03:32)
[2016-10-20 03:01] LABS: ANISOCYTOSIS 1+; HYPOCHROMIA 1+; PLATELET COMMENT2 NO CLOTTING DETECTED; POIKILOCYTOSIS 1+; POLYCHROMASIA 1+
[2016-10-20 03:05] LABS: PLATELET ESTIMATE SLT DECREASED (NORMAL)
[2016-10-20] MEDS ORDERED: VASOPRESSIN 50 UNITS in SODIUM CHLORIDE 97.5 ML IVPB SCH (03:15)
[2016-10-20 03:23] LABS: MEAN PLT VOLUME 9.8 fl (7.5-11.1)
[2016-10-20 03:28] LABS: MCH 32.4 pg (25.7-33.7); MEAN CELL VOLUME 98.4 fl (80-96); PLATELET COUNT 143 K/MM3 (134-434); RDW 14.2 % (11.9-15.9)
[2016-10-20 03:35] LABS: WHITE BLOOD COUNT 1.6 K/mm3 (4.0-10.0)
[2016-10-20 03:37] LABS: INR 1.01 (0.82-1.09); PROTHROMBIN TIME (PATIENT) 11.1 SEC (9.98-11.88)
[2016-10-20 03:39] LABS: ACTIVATED PTT 27.8 SECONDS (26.9-34.4)
[2016-10-20] MEDS ORDERED: PIPERACILLIN/TAZOB 2.25 GM 2.25 GM in DEXTROSE 5%-WATER - 50 ML IVPB ONE (03:47)
[2016-10-20 03:48] LABS: ALBUMIN 2.8 g/dl (3.4-5.0); BILIRUBIN,TOTAL 0.4 mg/dL (0.2-1.0); CALCIUM 8.8 mg/dL (8.5-10.1); CREATININE 5.9 mg/dL (0.7-1.3); PHOSPHOROUS 4.1 mg/dL (2.5-4.9); TOT PROT 6.3 g/dl (6.4-8.2)
[2016-10-20] MEDS ORDERED: VANCOMYCIN 1,000 MG in DEXTROSE 5%-WATER - 250 ML IVPB ONE (03:48)
[2016-10-20 03:51] LABS: TROPONIN I 0.22 ng/ml (0.00-0.05)
[2016-10-20] MEDS ORDERED: ATORVASTATIN CA 80 MG TABLET (FP) PO ONE (03:58)
[2016-10-20] MEDS ORDERED: PIPERACILLIN/TAZOB 2.25 GM/50 ML PRE-DOCKED BAG IVPB ONE ×2 (04:00→22:00)
[2016-10-20] MEDS ORDERED: VANCOMYCIN 1 GRAM (PRE-DOCKED) 1,000 MG/250 ML BAG IVPB ONE (04:00)
[2016-10-20 04:59] LABS: ANISOCYTOSIS 1+; HYPOCHROMIA 1+; PLATELET COMMENT2 NO CLOTTING DETECTED; PLATELET COMMENT3 FEW LARGE PLTS; PLATELET ESTIMATE SLT DECREASED (NORMAL); POIKILOCYTOSIS 1+; POLYCHROMASIA 1+; SMUDGE CELLS FEW
[2016-10-20 06:03] LABS: ARTERIAL BLD GAS O2 SATURATION 84.1 % (90-98.9); ARTERIAL BLOOD GAS pH 7.38 (7.35-7.45)
[2016-10-20 06:04] LABS: ALLENS TEST POSITIVE
[2016-10-20 06:05] LABS: LPM/O2% 60; MECH. VENT. YES; PT. ON O2? YES; TYPE OF O2 MECH VENT; VENT RATE 20; VT/PRESS 350
[2016-10-20 06:06] LABS: ARTERIAL BLOOD GAS PO2 54.9 mmHg (70-100)
[2016-10-20] MEDS ORDERED: ALBUTEROL SO4 0.083% IH SOL 2.5 MG/3 ML VIAL.NEB. NEB PRN (06:28)
[2016-10-20] MEDS ORDERED: ALBUTEROL SO4 0.083% IH SOL 2.5 MG/3 ML VIAL.NEB. NEB ONE (06:28)
[2016-10-20] MEDS: ALBUTEROL SO4 2.5/IPRATROPIUM 0.5 INH SOL 3 ML VIAL.NEB. NEB SCH ×2 (06:30→13:15)
[2016-10-20] MEDS ORDERED: NOREPINEPHRINE BITARTRATE 4 MG/4 ML ML IV ONE (06:58)
[2016-10-20] MEDS ORDERED: NOREPINEPHRINE BITARTRATE 8,000 MCG in DEXTROSE 5%-WATER - 492 ML IV SCH (07:00)
[2016-10-20 09:23] LABS: TROPONIN I 1.67 ng/ml (0.00-0.05)
[2016-10-20] MEDS ORDERED: levETIRAcetam 500 MG/5 ML ORAL SOLUTION (UNIT-DOSE CUPS) PO SCH (10:00)
[2016-10-20] MEDS ORDERED: VASOPRESSIN 20 UNITS/ML VIAL IV ONE (10:59)
[2016-10-20 11:27] VITALS: TEMP 98.3
--- NOTE | 2016-10-20 11:35 | EKG ---
Test Reason : Blood Pressure : / mmHG Vent. Rate : 095 BPM Atrial Rate : 187 BPM P-R Int : 000 ms QRS Dur : 102 ms QT Int : 382 ms P-R-T Axes : 000 -73 120 degrees QTc Int : 480 ms ATRIAL FIBRILLATION LEFT AXIS DEVIATION INCOMPLETE RIGHT BUNDLE BRANCH BLOCK MINIMAL VOLTAGE CRITERIA FOR LVH, MAY BE NORMAL VARIANT SEPTAL INFARCT , AGE UNDETERMINED INFERIOR INFARCT (CITED ON OR BEFORE 10-AUG-2016) ABNORMAL ECG WHEN COMPARED WITH ECG OF 19-OCT-2016 23:42, SEPTAL INFARCT IS NOW PRESENT T WAVE INVERSION NO LONGER EVIDENT IN ANTERIOR LEADS Confirmed by AQUILES SOUZA MD ([id number]) on 10/20/2016 11:35:34 AM Referred By: Confirmed By:AQUILES SOUZA MD
--- NOTE | 2016-10-20 11:37 | EKG ---
Test Reason : Blood Pressure : / mmHG Vent. Rate : 079 BPM Atrial Rate : 090 BPM P-R Int : 000 ms QRS Dur : 100 ms QT Int : 390 ms P-R-T Axes : 000 -76 123 degrees QTc Int : 447 ms ATRIAL FIBRILLATION LEFT AXIS DEVIATION INCOMPLETE RIGHT BUNDLE BRANCH BLOCK INFERIOR INFARCT , AGE UNDETERMINED ABNORMAL ECG WHEN COMPARED WITH ECG OF 07-SEP-2016 11:26, ATRIAL FIBRILLATION HAS REPLACED SINUS RHYTHM CRITERIA FOR ANTEROSEPTAL INFARCT ARE NO LONGER PRESENT T WAVE INVERSION NO LONGER EVIDENT IN INFERIOR LEADS Confirmed by AQUILES SOUZA MD ([id number]) on 10/20/2016 11:36:39 AM Referred By: Confirmed By:AQUILES SOUZA MD
--- NOTE | 2016-10-20 11:57 | CONSULT ---
Consult - text type - Consultation Consultation Note: Renal Consult for ESRD on HD/PD This is a 81 year old Gentleman with PMhx of ESRD on HD -> PD,Hypertension, IDDM , Progressive Dementia, Seizure disorder who presented from home with unresponsiveness and was intubated in the field for airway protection and found to have Sepsis with hypotension and lactic acidosis. reports that pt because unresponsive while eating yesterday and did not improve throughout the course of the day. She had called EMS and pt was intubated in the field. In the ED pt was though to to be fluid overloaded and transfered to the ICU for urgent dialysis with UF. Pt however was hypotensive upon transfer to the ICU and was only able to tolerate 20 mins of dialysis. Pt currently unresponsive on vent via ET tube on Levophe and vasopressin. Family at the bedside. PMhx: as per HPI Family hx: NC Social Hx: former smoker ROS: Limited because of clinical status Home Meds: Home Medications Medication Instructions Recorded Acetaminophen [Tylenol] 650 mg PO DAILY PRN 03/07/16 Aspirin [ASA -] 81 mg PO DAILY 03/07/16 Insulin Lispro [Humalog] 0 unit SQ ASDIR PRN 03/07/16 Megestrol Acetate 40 mg PO DAILY 03/07/16 Polyethylene Glycol 3350 [Miralax 17 gm PO DAILY 03/07/16 119 gm Btl -] Sevelamer Carbonate [Renvela -] 2,400 mg PO TID 03/07/16 Sodium Polystyrene Sulfon/Sorb 30 gm PO ASDIR 03/07/16 [Kionex 15 gm/60 ml Suspension] Vit B Cmplx 3/FA/Vit C/Biotin 1 each PO DAILY 03/07/16 [Rissa-Kimani Rx Tablet] Mirtazapine [Remeron -] 7.5 mg PO HS 07/20/16 Atorvastatin Ca [Lipitor] 40 mg PO HS tablet 07/22/16 Isosorbide Mononitrate [Imdur -] 30 mg PO HS tab.sr.24h 07/22/16 Losartan Potassium [Cozaar -] 50 mg PO DAILY tablet 07/22/16 Amlodipine Besylate 5 mg PO DAILY 09/07/16 Insulin Glargine,Hum.rec.anlog 15 units SQ ACBK 09/07/16 [Lantus (nf)] Nebivolol [Bystolic -] 5 mg PO BID 09/07/16 Levetiracetam [Keppra] 500 mg PO DAILY #60 tablet 09/21/16 Vital Signs Temperature 98.3 F 10/20/16 10:00 Pulse Rate 50 L 10/20/16 11:33 Respiratory Rate 26 H 10/20/16 11:33 Blood Pressure 78/48 10/20/16 10:00 O2 Sat by Pulse Oximetry (%) 98 10/20/16 11:34 Intake & Output 10/17/16 10/18/16 10/19/16 10/20/16 23:59 23:59 23:59 23:59 Intake Total 398 Balance 398 Weight 198 lb 6.656 oz 137 lb 12.623 oz Gen: Unresponsive on the Vent HEENT: NC/AT, No JVD CVS: RRR, No M/R Lungs: CTA (anterior exam) Abd: soft NT/ND. Abd dressing pad in place. PD catheter in place. Ext: No edema, clubbing or cyanosis HD access: AVF + thrill CBC, BMP 10/20/16 03:00 10/20/16 03:00 Laboratory Tests 10/20/16 10/20/16 10/20/16 03:00 03:00 03:00 Neutrophils % 46.0 D Band Neutrophils 20.0 H D ESR 65 H ABG pH ABG pCO2 at Pt Temp ABG pO2 at Pt Temp ABG HCO3 ABG O2 Sat (Measured) Lactic Acid Calcium 8.8 Phosphorus 4.1 Magnesium 2.0 Troponin I C-Reactive Protein 10/20/16 10/20/16 10/20/16 03:00 06:00 07:45 Neutrophils % Band Neutrophils ESR ABG pH 7.38 ABG pCO2 at Pt Temp 34.4 L D ABG pO2 at Pt Temp 54.9 L D ABG HCO3 20.0 L ABG O2 Sat (Measured) 84.1 L Lactic Acid Calcium Phosphorus Magnesium Troponin I 1.67 H* D C-Reactive Protein 3.1 H 10/20/16 07:45 Neutrophils % Band Neutrophils ESR ABG pH ABG pCO2 at Pt Temp ABG pO2 at Pt Temp ABG HCO3 ABG O2 Sat (Measured) Lactic Acid 10.907 H* Calcium Phosphorus Magnesium Troponin I C-Reactive Protein Current Medications Albuterol Sulfate (Ventolin 0.083% Nebulizer Soln -) 1 amp NEB Q1H PRN PRN Reason: SHORT OF BREATH/WHEEZING Albuterol/Ipratropium (Duoneb -) 1 amp NEB TIDR ONUR Last Admin: 10/20/16 06:30 Dose: 1 amp Atorvastatin Calcium (Lipitor -) 80 mg PO HS ONUR Vasopressin 50 units/ Sodium (Chloride) 100 mls @ 6 mls/hr IVPB ASDIR ONUR; 3 UNITS/HR PRN Reason: Protocol Last Admin: 10/20/16 03:29 Dose: 12 mls/hr Norepinephrine Bitartrate 8, (000 mcg/ Dextrose) 500 mls @ 7.5 mls/hr IV TITR ONUR; 2 MCG/MIN PRN Reason: Protocol Last Admin: 10/20/16 07:21 Dose: 18.8 mls/hr Levetiracetam (Keppra Oral Solution -) 500 mg PO DAILY ONUR Last Admin: 10/20/16 11:42 Dose: Not Given A/P 81 year old Gentleman with PMhx of ESRD on HD -> PD,Hypertension, IDDM, Progressive Dementia, Seizure disorder who presented from home with unresponsiveness and was intubated in the field for airway protection and found to have Sepsis with hypotension and lactic acidosis. #Sepsis with Hypotension, Lactic acidosis, Demand Ischemia Continue ICU Care Vent support Empiric Abx F/u blood, sputum and PD fluid cultures Vasopressers as needed to keep MAP > 65 IVF as needed #ESRD on HD/PD pt unable to tolerate dialysis last night no acute indication for dialysis today will monitor labs and re-evaluate for dialysis #AMS Sepsis -> Cerebral hypoperfusion vs. Seizure disorder with post ictal state Neurology eval continue keppra Sepsis protocol as per ICU Prognosis is guarded Tayo Pederson DO
--- NOTE | 2016-10-20 13:25 | PN ---
Addendum entered and electronically signed by Celestine Causey RES 10/20/16 15:11: Patient was pronounced at 1:39PM. He was found to be pulseless and asystole by family members at bedside. On physical exam, absent heart and lung sounds, no corneal reflex. Vent support and medications were discontinued shortly after, per family's wish. Emotional support was provided with family members at bedside. Original Note: Physical Exam: SUBJECTIVE: Patient seen and examined at bedside in ICU. He's intubated and on pressors. OBJECTIVE: Sedated and intubated on mechanical ventilation Vent settings: AC, RR 20, TV 350, FiO2 100, PEEP 10 On levophed 4 mcg and vasopressin 6 mcg through peripheral line in L foot Not on sedation Vital Signs Period Temp Pulse Resp BP Sys/Hansen Pulse Ox Last 24 Hr 98.0 F-99.2 F 50-110 14-28 70-99/40-65 98-99 GENERAL: Intubated on pressor, RSS -5 EYES: b/l constricted pupils, non-reactive LUNGS: b/l wheezing HEART: distant heart sounds ABDOMEN: Soft, not distended, no grimace on face upon palpation, PD access in RLQ EXTREMITIES: cold extremities, No edema NEURO: No corneal reflex, no jaw reflex, unable to assess cranial nerves ABG Results ABG pH 7.38 (7.35-7.45) 10/20/16 06:00 ABG pCO2 at Pt Temp 34.4 mmHg (35-45) L D 10/20/16 06:00 ABG pO2 at Pt Temp 54.9 mmHg (70-100) L D 10/20/16 06:00 ABG HCO3 20.0 meq/L (22-26) L 10/20/16 06:00 ABG O2 Sat (Measured) 84.1 % (90-98.9) L 10/20/16 06:00 ABG O2 Content 11.3 % vol (15-22) L 10/20/16 06:00 ABG Base Excess -4.0 meq/l (-2-2) L 10/20/16 06:00 CBCD WBC 1.6 K/mm3 (4.0-10.0) L D 10/20/16 03:00 RBC 2.87 M/mm3 (4.00-5.60) L 10/20/16 03:00 Hgb 9.3 GM/dL (11.7-16.9) L 10/20/16 03:00 Hct 28.3 % (35.4-49) L 10/20/16 03:00 MCV 98.4 fl (80-96) H 10/20/16 03:00 MCHC 33.0 g/dl (32.0-35.9) 10/20/16 03:00 RDW 14.2 % (11.9-15.9) 10/20/16 03:00 Plt Count 143 K/MM3 (134-434) 10/20/16 03:00 MPV 9.8 fl (7.5-11.1) 10/20/16 03:00 CMP Sodium 143 mmol/L (136-145) 10/20/16 03:00 Potassium 3.3 mmol/L (3.5-5.1) L 10/20/16 03:00 Chloride 100 mmol/L (98-107) 10/20/16 03:00 Carbon Dioxide 25 mmol/L (21-32) 10/20/16 03:00 Anion Gap 18 (8-16) H 10/20/16 03:00 BUN 54 mg/dL (7-18) H D 10/20/16 03:00 Creatinine 5.9 mg/dL (0.7-1.3) H D 10/20/16 03:00 Creat Clearance w eGFR 9.29 (>60) 10/20/16 03:00 Calcium 8.8 mg/dL (8.5-10.1) 10/20/16 03:00 Total Bilirubin 0.4 mg/dL (0.2-1.0) 10/20/16 03:00 AST 31 U/L (15-37) 10/20/16 03:00 ALT 22 U/L (12-78) 10/20/16 03:00 Alkaline Phosphatase 107 U/L (45-117) 10/20/16 03:00 Total Protein 6.3 g/dl (6.4-8.2) L 10/20/16 03:00 Albumin 2.8 g/dl (3.4-5.0) L 10/20/16 03:00 Intake & Output 10/17/16 10/18/16 10/19/1610/20/17 23:59 23:59 23:59 23:59 Intake Total 398 Balance 398 Weight 90 kg 62.5 kg Active Medications Generic Name Dose Route Start Last Admin Trade Name Freq PRN Reason Stop Dose Admin Albuterol Sulfate 1 amp 10/20/16 06:28 Ventolin 0.083% Nebulizer Soln - NEB Q1H PRN SHORT OF BREATH/WHEEZING Albuterol/Ipratropium 1 amp 10/20/16 06:00 10/20/16 06:30 Duoneb - NEB 1 amp TIDR ONUR Administration Atorvastatin Calcium 80 mg 10/20/16 22:00 Lipitor - PO HS ONUR Vasopressin 50 units/ Sodium 100 mls @ 6 mls/hr 10/20/16 03:15 10/20/16 03:29 Chloride IVPB 12 mls/hr ASDIR ONUR Administration Protocol 3 UNITS/HR Norepinephrine Bitartrate 8, 500 mls @ 7.5 mls/hr 10/20/16 07:00 10/20/16 07:21 000 mcg/ Dextrose IV 18.8 mls/hr TITR ONUR Administration Protocol 2 MCG/MIN Piperacillin Sod/Tazobactam 50 mls @ 100 mls/hr 10/20/16 22:00 Sod 2.25 gm/ Dextrose IVPB BID ONUR Protocol Levetiracetam 500 mg 10/20/16 10:00 10/20/16 11:42 Keppra Oral Solution - PO Not Given DAILY ONUR Imaging CXR on 10/20: Interval worsening airspace disease/pneumonia in the left mid and lower lung ASSESSMENT/PLAN: 80 yo M h/o CHF, HTN, CAD s/p CABG, ESRD on PRN PD, former smoker admitted to the ICU for septic shock and respiratory failure. Patient is intubated, on dual pressors, not sedated but unresponsive to any stimuli. ID: Septic shock 2/2 ?peritonitis - Abd non-distended and no discomfort per - F/U peritoneal fluid analysis and blood culture - CXR unremarkable for infection - Trend lactic acid - Cont. zosyn Neuro: AMS 2/2 Seizure vs. Metabolic Encephalopathy vs. Other [employer] pathology - Unresponsive to any stimuli with constricted and non-reactive pupils - GCSS = 3 - Cont. keppra - Brain CT/MRI when stable Renal: ESRD on PD (PRN schedule) - Unable to tolerate urgent dialysis due to hypotension - Renally dose all meds Pulm: Acute respiratory failure - Intubated on vent - Respiratory acidosis improving on ABG - Maintain O2 Sat > 88% - Daily CXR and ABG Heme: Neutropnia, Acute 2/2 septic shock - ANC 1056 without fever - Cont. to treat underlying infection Cardiac: NSTEMI 2/2 demand ischemia - Elevated troponins - Monitor electrolytes - Cont. pressors to maintain MAP > 65% FEN - IVF PRN - Mild hypokalemia, Cont. to monitor lytes - NPO Prophylaxis - DVT: hold - GI: start tomorrow Disposition - Cont. to monitor in ICU Code status - Full code Visit type - Emergency Visit Emergency Visit: No - New Patient This patient is new to me today: Yes Date on this admission: 10/20/16 - Critical Care Critical Care patient: Yes Total Critical Care Time (in minutes): 45 Critical Care Statement: The care of this patient involved high complexity decision making to prevent further life threatening deterioration of the patient 's condition and/or to evalute & treat vital organ system(s) failure or risk of failure.
--- NOTE | 2016-10-20 14:01 | CON.CARD ---
Consult Consult Specialty:: Cardiology - History of Present Illness Chief Complaint: Respiratory failure History of Present Illness: 81-year-old man, with significant past medical history of chronic LV systolic failure (mild), labile hypertension, hypercholesterolemia, end-stage renal disease (on peritoneal dialysis), coronary artery disease s/p CABG, angina pectoris, insulin-dependent diabetes mellitus, hypoxia (on home O2), seizure disorder, several admissions for intradialytic syncope, hypoglycemia and hypotension responsive to albumin/colloid infusions despite having antihypertensive agents held prior to HD session who presented from home with unresponsiveness after PD and was intubated in the field for airway protection and found to have Sepsis with hypotension and lactic acidosis. reports that pt because unresponsive while eating yesterday and did not improve throughout the course of the day. She had called EMS and pt was intubated in the field. In the ED pt was though to to be fluid overloaded and transfered to the ICU for urgent dialysis with UF. Pt however was hypotensive upon transfer to the ICU and was only able to tolerate 20 mins of dialysis. Pt currently unresponsive on vent via ET tube on Levophe and vasopressin. Family at the bedside. Pt is a 81yr old man with PMHx of ESRD, HTN, CAD s/p CABG, DM and dementia. Pt with peritoneal cath placed in August, receiving PD daily and continuing HD once or twice a week. Per , was having difficult eating around 1400 on 10/19 with witnessed "gurgling" that self resolved. However, pt with progressive lethargy --> unresponsiveness s/p PD around 2100. EMS called and pt intubated in the field . Nephrology consulted, pt to receive emergent HD in ICU. Pt received in ICU, unresponsive to noxious stimuli, HR 120s-140s. EKG shows new onset a-fib (my read, compared with earlier EKGs). MAP 50s-60s. Case discussed with Dr. Pederson, will start Vaso for pressure support during dialysis. Pt with continued hypotension during dialysis. Case discussed with electrophysiology nurse practitioner Dr. Loera. Will hold off on HD for now, continue vaso for pressure support. Cardiology consult in a.m. Case discussed with at bedside who just made him DNR. Case also discussed with her permission with her two sons who are physicians as well as her daughter in law who is also a physician. Case again discussed with Dr. Pederson, will hold off on IVF unless pt acutely hypotensive then will give small bolus for BP support. Ok with 2.25 zosyn and 1g vanc. 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: Yes: Dementia, Peripheral Neuropathy Cardio/Vascular: Yes: CAD Renal/: Yes: Renal Failure, Hemodialysis, Other (on diaylsis ) Psych: Yes: Psychosis - Past Surgical History Past Surgical History: Yes: AV Fistula/Graft, CABG - Alcohol/Substance Use Hx Alcohol Use: No - Smoking History Smoking history: Never smoked Have you smoked in the past 12 months: No Aproximately how many cigarettes per day: 0 If you are a former smoker, when did you quit?: 30YRS - Social History Usual Living Arrangement: With Spouse History of Recent Travel: No Home Medications - Allergies Allergies/Adverse Reactions: Allergies Allergy/AdvReac Type Severity Reaction Status Date / Time No Known Drug Allergies Allergy Verified 10/19/16 23:26 - Home Medications Home Medications: Ambulatory Orders Acetaminophen [Tylenol] 650 mg PO DAILY PRN 03/07/16 Aspirin [ASA -] 81 mg PO DAILY 03/07/16 Insulin Lispro [Humalog] 0 unit SQ ASDIR PRN 03/07/16 Megestrol Acetate 40 mg PO DAILY 03/07/16 Polyethylene Glycol 3350 [Miralax 119 gm Btl -] 17 gm PO DAILY 03/07/16 Sevelamer Carbonate [Renvela -] 2,400 mg PO TID 03/07/16 Sodium Polystyrene Sulfon/Sorb [Kionex 15 gm/60 ml Suspension] 30 gm PO ASDIR Vit B Cmplx 3/FA/Vit C/Biotin [Rissa-Kimani Rx Tablet] 1 each PO DAILY 03/07/16 Mirtazapine [Remeron -] 7.5 mg PO HS 07/20/16 Atorvastatin Ca [Lipitor] 40 mg PO HS tablet 07/22/16 Isosorbide Mononitrate [Imdur -] 30 mg PO HS tab.sr.24h 07/22/16 Losartan Potassium [Cozaar -] 50 mg PO DAILY tablet 07/22/16 Amlodipine Besylate 5 mg PO DAILY 09/07/16 Insulin Glargine,Hum.rec.anlog [Lantus (nf)] 15 units SQ ACBK 09/07/16 Nebivolol [Bystolic -] 5 mg PO BID 09/07/16 Levetiracetam [Keppra] 500 mg PO DAILY #60 tablet 09/21/16 Vital Signs: Vital Signs Temperature 98.3 F 10/20/16 10:00 Pulse Rate 48 L 10/20/16 13:25 Respiratory Rate 20 10/20/16 13:25 Blood Pressure 68/40 10/20/16 13:25 O2 Sat by Pulse Oximetry (%) 98 10/20/16 11:34 - Other Data Labs, Other Data: CBC, BMP 10/20/16 03:00 10/20/16 03:00 INR, PTT INR 1.01 (0.82-1.09) 10/20/16 03:00 Troponin, BNP 10/20/16 10/20/16 10/20/16 00:02 03:00 07:45 Troponin I 0.15 H D 0.22 H D 1.67 H* D B-Natriuretic Peptide 07199.10 H Troponin, BNP 10/20/16 10/20/16 10/20/16 00:02 03:00 07:45 Troponin I 0.15 H D 0.22 H D 1.67 H* D B-Natriuretic Peptide 25692.10 H Assessment/Plan 03/07/2016 Echocardiography revealed mild systolic LV systolic dysfunction ( change from prior echocardiography), with MAC, AV sclerosis, and no significant valvular pathology 07/22/2016 Echo: Low normal systolic function mild TR 1. Pre-operative cardiovascular assessment 2. H/o near and true syncope due to intradialytic hypotension responsive to colloid infusion 2. Chronic mild LV systolic dysfunction with h/o failure 3. CAD post IL/CABG angina pectoris 4. Labile hypertension 5. IDDM 6. Hyperlipidemia 7. ESRD on HD, planned for PD 8. Anemia of chronic renal disease PLAN: 1. Given absence of symptoms of acute coronary syndrome, decompensated CHF or malignant arrhythmia, patient may proceed with PD catheter placement from cardiovascular standpoint without further testing 2. Agree with MAC and local anesthesia vs general anesthesia given patient's sensitivity to pre-load decreases 3. Continue Bystolic 5 mg twice daily as tolerated 4. Continue Cozaar 50 mg daily, Imdur 30 qd, ASA 81 qd, Lipitor 40 qhs 5. We will be available for consultation while patient is in house, thank you
[2016-10-20 14:09] VITALS: BP 44/28; PULSE 36
--- NOTE | 2016-10-20 16:20 | PN ---
Teaching Attending Note Name of Resident: Celestine Causey ATTENDING PHYSICIAN STATEMENT I saw and evaluated the patient. I reviewed the resident's note and discussed the case with the resident. I agree with the resident's findings and plan as documented. SUBJECTIVE: Patient seen and examined in the ICU earlier to today. Progressive MOF. Vasopressin and NE for hemodynamic support. AC mode of vent, 100% FiO2. Family at the bedside. Intake & Output 10/17/16 10/18/16 10/19/16 10/20/16 23:59 23:59 23:59 23:59 Intake Total 398 Balance 398 Weight 198 lb 6.656 oz 137 lb 12.623 oz Last Vital Signs Temp Pulse Resp BP Pulse Ox 98.3 F 36 L 20 44/28 98 10/20/16 10:00 10/20/16 14:08 10/20/16 14:08 10/20/16 14:08 10/20/16 11:34 Active Medications Albuterol Sulfate (Ventolin 0.083% Nebulizer Soln -) 1 amp NEB Q1H PRN PRN Reason: SHORT OF BREATH/WHEEZING Albuterol/Ipratropium (Duoneb -) 1 amp NEB TIDR ONUR Last Admin: 10/20/16 13:15 Dose: 1 amp Atorvastatin Calcium (Lipitor -) 80 mg PO HS ONUR Vasopressin 50 units/ Sodium (Chloride) 100 mls @ 6 mls/hr IVPB ASDIR ONUR; 3 UNITS/HR PRN Reason: Protocol Last Admin: 10/20/16 03:29 Dose: 12 mls/hr Norepinephrine Bitartrate 8, (000 mcg/ Dextrose) 500 mls @ 7.5 mls/hr IV TITR ONUR; 2 MCG/MIN PRN Reason: Protocol Last Admin: 10/20/16 07:21 Dose: 18.8 mls/hr Piperacillin Sod/Tazobactam Sod (Zosyn 2.25gm Ivpb (Pre-Docked)) 50 mls @ 100 mls/hr IVPB BID ONUR PRN Reason: Protocol Levetiracetam (Keppra Oral Solution -) 500 mg PO DAILY ONUR Last Admin: 10/20/16 11:42 Dose: Not Given Piperacillin Sod/Tazobactam Sod (Zosyn 2.25gm Ivpb (Pre-Docked)) 2.25 gm IVPB ONCE ONE Stop: 10/20/16 22:01 Gen: Unresponsive on the Vent HEENT: NC/AT, No JVD CVS: RRR, No M/R Lungs: Few scattered rhonchi Abd: soft NT/ND. Abd dressing pad in place. PD catheter in place. Ext: No edema, clubbing or cyanosis HD access: AVF + thrill Laboratory Results - last 24 hr 10/20/16 10/20/16 10/20/16 00:02 00:02 00:02 WBC 5.8 D RBC 2.91 L Hgb 9.5 L D Hct 28.9 L D MCV 99.2 H MCHC 32.8 RDW 14.7 Plt Count 137 MPV 9.7 Neutrophils % 79.0 D Lymphocytes % 10.0 D Monocytes % 2.0 L Eosinophils % Basophils % Band Neutrophils 9.0 Nucleated RBCs 2 H Smudge Cells Platelet Estimate Slt decreased Platelet Comment No clotting detected Polychromasia 1+ Hypochromic-Microcytic 1+ Poikilocytosis 1+ Anisocytosis 1+ ESR INR 1.01 PTT (Actin FS) Puncture Site ABG pH ABG pCO2 at Pt Temp ABG pO2 at Pt Temp ABG HCO3 ABG O2 Sat (Measured) ABG O2 Content ABG Base Excess Gelacio Test Carboxyhemoglobin Methemoglobin O2 Delivery Device Oxygen Flow Rate Vent Mode Vent Rate Mechanical Rate PEEP Pressure Support Vent Sodium 139 Potassium 3.2 L Chloride 94 L Carbon Dioxide 26 Anion Gap 19 H BUN 78 H D Creatinine 8.6 H* Creat Clearance w eGFR 6.02 Random Glucose 247 H D Lactic Acid Calcium 9.1 Phosphorus Magnesium 2.2 Total Bilirubin 0.5 D AST 32 D ALT 23 D Alkaline Phosphatase 118 H Ammonia Creatine Kinase 415 H D Creatine Kinase Index 1.8 CK-MB (CK-2) 7.331 H CK-MB (CK-2) Rel Index Troponin I 0.15 H D C-Reactive Protein B-Natriuretic Peptide 79125.10 H Total Protein 6.6 Albumin 2.8 L Acetone, Qual Negative Hepatitis C Antibody Blood Type Antibody Screen 10/20/16 10/20/16 10/20/16 00:02 00:02 00:40 WBC RBC Hgb Hct MCV MCHC RDW Plt Count MPV Neutrophils % Lymphocytes % Monocytes % Eosinophils % Basophils % Band Neutrophils Nucleated RBCs Smudge Cells Platelet Estimate Platelet Comment Polychromasia Hypochromic-Microcytic Poikilocytosis Anisocytosis ESR INR PTT (Actin FS) Puncture Site Right brachial ABG pH 7.24 L* D ABG pCO2 at Pt Temp 60.7 H* ABG pO2 at Pt Temp 99.5 ABG HCO3 25.2 ABG O2 Sat (Measured) 96.3 ABG O2 Content 13.6 L ABG Base Excess -2.3 L Gelacio Test Positive Carboxyhemoglobin 1.2 Methemoglobin 0.6 O2 Delivery Device Vent Oxygen Flow Rate 60% Vent Mode Ac Vent Rate 14 Mechanical Rate Y PEEP 5.0 Pressure Support Vent 450 Sodium Potassium Chloride Carbon Dioxide Anion Gap BUN Creatinine Creat Clearance w eGFR Random Glucose Lactic Acid Calcium Phosphorus Magnesium Total Bilirubin AST ALT Alkaline Phosphatase Ammonia Creatine Kinase Creatine Kinase Index CK-MB (CK-2) CK-MB (CK-2) Rel Index Cancelled Troponin I C-Reactive Protein B-Natriuretic Peptide Total Protein Albumin Acetone, Qual Hepatitis C Antibody Blood Type A POSITIVE Antibody Screen Negative 10/20/16 10/20/16 10/20/16 00:55 01:00 03:00 WBC 1.6 L D RBC 2.87 L Hgb 9.3 L Hct 28.3 L MCV 98.4 H MCHC 33.0 RDW 14.2 Plt Count 143 MPV 9.8 Neutrophils % 46.0 D Lymphocytes % 30.0 D Monocytes % 1.0 L Eosinophils % 2.0 Basophils % 1.0 Band Neutrophils 20.0 H D Nucleated RBCs Smudge Cells Few Platelet Estimate Slt decreased Platelet Comment No clotting detected Polychromasia 1+ Hypochromic-Microcytic 1+ Poikilocytosis 1+ Anisocytosis 1+ ESR INR PTT (Actin FS) Puncture Site ABG pH ABG pCO2 at Pt Temp ABG pO2 at Pt Temp ABG HCO3 ABG O2 Sat (Measured) ABG O2 Content ABG Base Excess Gelacio Test Carboxyhemoglobin Methemoglobin O2 Delivery Device Oxygen Flow Rate Vent Mode Vent Rate Mechanical Rate PEEP Pressure Support Vent Sodium Potassium Chloride Carbon Dioxide Anion Gap BUN Creatinine Creat Clearance w eGFR Random Glucose Lactic Acid 3.319 H* Calcium Phosphorus Magnesium Total Bilirubin AST ALT Alkaline Phosphatase Ammonia Creatine Kinase Creatine Kinase Index CK-MB (CK-2) CK-MB (CK-2) Rel Index Troponin I C-Reactive Protein B-Natriuretic Peptide Total Protein Albumin Acetone, Qual Hepatitis C Antibody Cancelled Blood Type Antibody Screen 03/10/20/16 10/20/16 03:00 03:00 03:00 WBC RBC Hgb Hct MCV MCHC RDW Plt Count MPV Neutrophils % Lymphocytes % Monocytes % Eosinophils % Basophils % Band Neutrophils Nucleated RBCs Smudge Cells Platelet Estimate Platelet Comment Polychromasia Hypochromic-Microcytic Poikilocytosis Anisocytosis ESR INR 1.01 PTT (Actin FS) 27.8 Puncture Site ABG pH ABG pCO2 at Pt Temp ABG pO2 at Pt Temp ABG HCO3 ABG O2 Sat (Measured) ABG O2 Content ABG Base Excess Gelacio Test Carboxyhemoglobin Methemoglobin O2 Delivery Device Oxygen Flow Rate Vent Mode Vent Rate Mechanical Rate PEEP Pressure Support Vent Sodium 143 Potassium 3.3 L Chloride 100 Carbon Dioxide 25 Anion Gap 18 H BUN 54 H D Creatinine 5.9 H D Creat Clearance w eGFR 9.29 Random Glucose 202 H Lactic Acid 4.620 H* Calcium 8.8 Phosphorus 4.1 Magnesium 2.0 Total Bilirubin 0.4 AST 31 ALT 22 Alkaline Phosphatase 107 Ammonia Creatine Kinase 338 H Creatine Kinase Index 2.1 CK-MB (CK-2) 6.997 H CK-MB (CK-2) Rel Index Troponin I 0.22 H D C-Reactive Protein B-Natriuretic Peptide Total Protein 6.3 L Albumin 2.8 L Acetone, Qual Hepatitis C Antibody Blood Type Antibody Screen 10/20/16 10/20/16 10/20/16 03:00 03:00 03:00 WBC RBC Hgb Hct MCV MCHC RDW Plt Count MPV Neutrophils % Lymphocytes % Monocytes % Eosinophils % Basophils % Band Neutrophils Nucleated RBCs Smudge Cells Platelet Estimate Platelet Comment Polychromasia Hypochromic-Microcytic Poikilocytosis Anisocytosis ESR 65 H INR PTT (Actin FS) Puncture Site ABG pH ABG pCO2 at Pt Temp ABG pO2 at Pt Temp ABG HCO3 ABG O2 Sat (Measured) ABG O2 Content ABG Base Excess Gelacio Test Carboxyhemoglobin Methemoglobin O2 Delivery Device Oxygen Flow Rate Vent Mode Vent Rate Mechanical Rate PEEP Pressure Support Vent Sodium Potassium Chloride Carbon Dioxide Anion Gap BUN Creatinine Creat Clearance w eGFR Random Glucose Lactic Acid Calcium Phosphorus Magnesium Total Bilirubin AST ALT Alkaline Phosphatase Ammonia 29.95 Creatine Kinase Creatine Kinase Index CK-MB (CK-2) CK-MB (CK-2) Rel Index Cancelled Troponin I C-Reactive Protein B-Natriuretic Peptide Total Protein Albumin Acetone, Qual Hepatitis C Antibody Blood Type Antibody Screen 10/20/16 10/20/16 10/20/16 03:00 06:00 07:45 WBC RBC Hgb Hct MCV MCHC RDW Plt Count MPV Neutrophils % Lymphocytes % Monocytes % Eosinophils % Basophils % Band Neutrophils Nucleated RBCs Smudge Cells Platelet Estimate Platelet Comment Polychromasia Hypochromic-Microcytic Poikilocytosis Anisocytosis ESR INR PTT (Actin FS) Puncture Site Md puncture ABG pH 7.38 ABG pCO2 at Pt Temp 34.4 L D ABG pO2 at Pt Temp 54.9 L D ABG HCO3 20.0 L ABG O2 Sat (Measured) 84.1 L ABG O2 Content 11.3 L ABG Base Excess -4.0 L Gelacio Test Positive Carboxyhemoglobin Methemoglobin O2 Delivery Device Mech vent Oxygen Flow Rate 60 Vent Mode A/c Vent Rate 20 Mechanical Rate Yes PEEP 5.0 Pressure Support Vent 350 Sodium Potassium Chloride Carbon Dioxide Anion Gap BUN Creatinine Creat Clearance w eGFR Random Glucose Lactic Acid Calcium Phosphorus Magnesium Total Bilirubin AST ALT Alkaline Phosphatase Ammonia Creatine Kinase 275 Creatine Kinase Index 4.1 CK-MB (CK-2) 11.144 H CK-MB (CK-2) Rel Index Troponin I 1.67 H* D C-Reactive Protein 3.1 H B-Natriuretic Peptide Total Protein Albumin Acetone, Qual Hepatitis C Antibody Blood Type Antibody Screen 10/20/16 10/20/16 07:45 07:45 WBC RBC Hgb Hct MCV MCHC RDW Plt Count MPV Neutrophils % Lymphocytes % Monocytes % Eosinophils % Basophils % Band Neutrophils Nucleated RBCs Smudge Cells Platelet Estimate Platelet Comment Polychromasia Hypochromic-Microcytic Poikilocytosis Anisocytosis ESR INR PTT (Actin FS) Puncture Site ABG pH ABG pCO2 at Pt Temp ABG pO2 at Pt Temp ABG HCO3 ABG O2 Sat (Measured) ABG O2 Content ABG Base Excess Gelacio Test Carboxyhemoglobin Methemoglobin O2 Delivery Device Oxygen Flow Rate Vent Mode Vent Rate Mechanical Rate PEEP Pressure Support Vent Sodium Potassium Chloride Carbon Dioxide Anion Gap BUN Creatinine Creat Clearance w eGFR Random Glucose Lactic Acid 10.907 H* Calcium Phosphorus Magnesium Total Bilirubin AST ALT Alkaline Phosphatase Ammonia Creatine Kinase Creatine Kinase Index CK-MB (CK-2) CK-MB (CK-2) Rel Index Cancelled Troponin I C-Reactive Protein B-Natriuretic Peptide Total Protein Albumin Acetone, Qual Hepatitis C Antibody Blood Type Antibody Screen IMP: Progressive MOF Acute Respiratory Failure (?) Septic shock (?) Peritonitis Lactic acidosis AMS Seizure D/O ESRD on HD / PD PLAN: Titrate pressors Broad spectrum ABX Patient made DNR I discussed his overall grave prognosis with the patient's and son -> Recommend comfort care measures only Dr Loera CCTime 35"
[2016-10-20] MEDS ORDERED: PIPERACILLIN/TAZOB 2.25 GM 2.25 GM in DEXTROSE 5%-WATER - 50 ML IVPB SCH (22:00)
[2016-10-20] MEDS ORDERED: ATORVASTATIN CA 80 MG TABLET (FP) PO SCH (22:00)
[2016-10-20] MEDS ORDERED: PIPERACILLIN/TAZOB 2.25 GM 50 ML IVPB SCH (22:00)
[2016-10-21 14:13] LABS: HEP B SURFACE AB Reactive (.)
== END 2016-10-20 18:06 | disposition expired | DRG 871 ==
LOC: JER 23:22 → JICU 23:59
PROVIDERS: ADMIT Internal Medicine; ATTEND Internal Medicine
PROC: 5A1935Z Respiratory Ventilation, Less than 24 Consecutive Hours (ICD-10-PCS; principal; 2016-10-19)
PROC: 5A1D00Z (ICD-10-PCS; 2016-10-20)
DX: A41.89 Other specified sepsis (principal); R65.21 Severe sepsis with septic shock; J96.01 Acute respiratory failure with hypoxia; J96.02 Acute respiratory failure with hypercapnia; G93.41 Metabolic encephalopathy; N18.6 End stage renal disease; I21.4 Non-ST elevation (NSTEMI) myocardial infarction; E87.2 Acidosis; I13.2 Hypertensive heart and chronic kidney disease with heart failure and with stage 5 chronic kidney disease, or end stage renal disease; G40.802 Other epilepsy, not intractable, without status epilepticus; I24.8 Other forms of acute ischemic heart disease; I25.10 Atherosclerotic heart disease of native coronary artery without angina pectoris; F03.90 Unspecified dementia, unspecified severity, without behavioral disturbance, psychotic disturbance, mood disturbance, and anxiety; E11.9 Type 2 diabetes mellitus without complications; D70.8 Other neutropenia; I50.9 Heart failure, unspecified; Z99.2 Dependence on renal dialysis; I48.91 Unspecified atrial fibrillation; E87.6 Hypokalemia; Z95.1 Presence of aortocoronary bypass graft; Z87.891 Personal history of nicotine dependence; Z66 Do not resuscitate
CPT/HCPCS: 36415; 36600; 71010-TC; 74000-TC; 80053; 82009; 82140; 82375; 82550; 82553; 82803; 83050; 83605; 83735; 83880; 84100; 84484; 85025; 85610; 85651; 85730; 86140; 86704; 86706; 86708; 86850; 86900; 86901; 87040; 87070; 87075; 87205; 87340; 93005; 93010; 94002; 94640; 99284-25